=== PATIENT | male | born 1950 | race Two or more races ===

== ENCOUNTER 2016-08-17 11:04 | Inpatient (IN) | payer MEDICAID ==
[~2016-08-17] VITALS: Ht 165.1 cm; Wt 73.5 kg
[~2016-08-17 11:04] MED LIST: ASPIRIN81 MG ORAL; AUGMENTIN 875-1 EAC1 ORAL; AVODART0.5 MG ORAL; BENADRYL25 M3 PO; BENAZEPRIL HCL20 MG ORAL; BISACODYL5 MG ORAL; BRIMONIDINE TART5 ML BOTH EYES; CIPROFLOXACIN500 M2 ORAL; COLACE100 MG ORAL; CYMBALTA30 MG ORAL; GABAPENTIN400 MG ORAL; GABAPENTIN600 MG ORAL; HUMALOG100 UNIT/4 SUBQ; HYTRIN5 MG ORAL; KEPPRA500 M4 ORAL; LOTENSIN20 MG ORAL; MILK OF MA400 MG/51 ORAL; MULTI VITAMIN1 EACH ORAL; NITROFURANTOIN100 M2 ORAL; NORCO 10-325 T1 EACH ORAL; NORCO 10/3251 EA ORAL; NORCO 5-325 TA1 EACH ORAL; PENICILLIN V P500 MG ORAL; PHENAZOPYRIDIN100 MG ORAL; POLYVINYL ALCOH15 ML OP; SIMVASTATIN20 MG ORAL; TAMSULOSIN HCL0.4 MG ORAL; TYLENOL325 MG ORAL; lispro insulin
[2016-08-17] MEDS ORDERED: Morphine Sulfate 4mg/ml Inj IVP ONE (12:30)
[2016-08-17 13:39] VITALS: BP 156/89
[2016-08-17 13:41] LABS: BASOPHILS % (AUTO) 0.9 % (0.0-2.0); EOSINOPHILS % (AUTO) 6.3 % (0.0-3.0); MEAN CORPUSCULAR HEMOGLOBIN 29.2 PG (27.0-31.0); MEAN CORPUSCULAR VOLUME 88 FL (80-99); MEAN PLATELET VOLUME 6.6 FL (6.5-10.1); NEUTROPHILS % (AUTO) 65.7 % (45.0-75.0); PLATELET COUNT 109 K/UL (150-450); RED BLOOD COUNT 4.24 M/UL (4.70-6.10); RED CELL DISTRIBUTION WIDTH 13.8 % (11.6-14.8); WHITE BLOOD COUNT 4.7 K/UL (4.8-10.8)
[2016-08-17] MEDS ORDERED: DiphenhydrAMINE 50mg/ml Inj ONE (13:41)
[2016-08-17] MEDS ORDERED: DiphenhydrAMINE 50mg/ml Inj IVP ONE (14:00)
[2016-08-17 15:00] VITALS: BP 133/70
--- NOTE | 2016-08-17 15:20 | Emergency Room Report ---
History of Present Illness General Chief Complaint: Abdominal Pain Source: EMS (ABY MEAD M.D.) Present Illness HPI 65-year-old male presents ED for evaluation. Per EMS patient is complaining of abdominal pain x4 days. Patient resides in convalescent home. Patient is unable to clarify nature of the pain. Unable to provide any additional history at this time. No fevers or chills. No nausea or vomiting. No reported chest pain or shortness of breath. No other aggravating relieving factors. Denies any other associated symptom (ABY MEAD M.D.) Allergies: Coded Allergies: No Known Allergies (Unverified , 02/13/13) Patient History Past Medical History: DM, HTN, seizures Past Surgical History: none Pertinent Family History: none Social History: Denies: alcohol use, drug use, smoking Immunizations: UTD Reviewed Nursing Documentation: PMH: Agreed, PSxH: Agreed (ABY MEAD M.D.) Nursing Documentation-PMH Hx Cardiac Problems: Yes - hyperlipidemia, glaucoma Hx Hypertension: Yes Hx Diabetes: Yes Hx Seizures: Yes (ABY MEAD M.D.) Review of Systems All Other Systems: negative except mentioned in HPI (ABY MEAD M.D.) Physical Exam Vital Signs Date Time Temp Pulse Resp B/P Pulse Ox O2 Delivery O2 Flow Rate FiO2 08/17/16 11:07 98.2 71 18 148/92 97 Room Air Sp02 EP Interpretation: reviewed, normal General Appearance: no apparent distress, alert, GCS 15, non-toxic Head: normocephalic Eyes: bilateral eye PERRL, bilateral eye normal inspection ENT: hearing grossly normal Neck: normal inspection Respiratory: normal inspection Cardiovascular #1: normal inspection Gastrointestinal: normal bowel sounds, soft, non-distended, no guarding, no rebound, tenderness Rectal: deferred Genitourinary: no CVA tenderness Musculoskeletal: normal inspection Neurologic: alert, oriented x3, responsive, motor strength/tone normal, sensory intact, speech normal Psychiatric: normal inspection Skin: normal inspection Lymphatic: normal inspection (ABY MEAD M.D.) Medical Decision Making Diagnostic Impression: Primary Impression: UTI (urinary tract infection) Qualified Codes: N30.00 - Acute cystitis without hematuria Additional Impression: Abdominal pain Qualified Codes: R10.9 - Unspecified abdominal pain ER Course Received signout from Dr Bloom to followup CT - no acute findings to explain pain for 4 days I reviewed labs, patient + nitrites, UTI H&H stable. No leuks. IV Ceftriaxone given in ED Admitted to Dr Hopkins for UTI, med/surg bed (RADHA RAO M.D.) Last Vital Signs Date Time Temp Pulse Resp B/P Pulse Ox O2 Delivery O2 Flow Rate FiO2 08/17/16 14:05 98.2 08/17/16 13:39 68 22 156/89 99 Room Air (ABY MEAD M.D.) Status: improved (RADHA RAO M.D.) Disposition: ADMITTED INPATIENT Condition: Serious Referrals: FORTINO HOPKINS (PCP) ABY MEAD M.D. Aug 17, 2016 15:20 RADHA RAO M.D. Aug 17, 2016 19:17
[2016-08-17 16:01] LABS: ALANINE AMINOTRANSFERASE 12 U/L (3-41); ALBUMIN/GLOBULIN RATIO 1.5 (1.0-2.7); ANION GAP 10 (5-15); ASPARTATE AMINO TRANSFERASE 26 U/L (5-40); CALCIUM 9.5 mg/dL (8.6-10.2); CARBON DIOXIDE 26 mEQ/L (20-30); CHLORIDE 103 mEQ/L (98-107); CREATININE 0.9 mg/dL (0.7-1.2); GLOMERULAR FILTRATION RATE > 60 mL/min (>60); HEMOLYSIS 4; LIPASE 25 U/L (< 60); POTASSIUM 4.9 mEQ/L (3.4-4.9); SODIUM 139 mEQ/L (135-145); TOTAL PROTEIN 6.7 g/dL (6.6-8.7)
[2016-08-17 17:00] VITALS: BP 138/71
[2016-08-17 17:48] LABS: APPEARANCE,URINE CLEAR; KETONES,URINE NEGATIVE (NEGATIVE); LEUKOCYTE ESTERASE ,URINE 3+ (NEGATIVE); NITRITE,URINE POSITIVE (NEGATIVE); PH,URINE 7 (4.5-8.0); PROTEIN,URINE NEGATIVE (NEGATIVE); UROBILINOGEN,URINE NORMAL MG/DL (0.0-1.0)
[2016-08-17] MEDS ORDERED: Miralax 17gm pkt ORAL PRN (18:15)
[2016-08-17] MEDS ORDERED: Nitroglycerin Subl 0.4mg tab (Bottle Of 25) SL PRN (18:15)
[2016-08-17] MEDS ORDERED: Mylanta II UD 30ml ORAL PRN (18:15)
[2016-08-17] MEDS ORDERED: CRANBERRY425 MG PO (18:23)
[2016-08-17] MEDS ORDERED: NORCO 5-325 TA1 EAC1 ORAL (18:23)
[2016-08-17] MEDS ORDERED: LANTUS SOL100 UNIT/1 SUBQ (18:23)
[2016-08-17 18:29] LABS: BACTERIA,URINE MODERATE /HPF; RBC,URINE 0-2 /HPF (0 - 0); WBC,URINE 0-2 /HPF (0 - 0)
[2016-08-17] MEDS ORDERED: cefTRIAXone 1 GM in D5W 55 ML IVPB ONE (19:30)
[2016-08-17 20:00] VITALS: BP 137/79
[2016-08-17] MEDS: Heparin 5000 units/ml inj SUBQ SCH (20:02)
[2016-08-17] MEDS: D5 1/2NS 1,000 ML IV SCH (20:23)
[2016-08-18] MEDS: Morphine Sulfate 2mg/ml Inj IVP PRN ×3 (01:34→21:04)
[2016-08-18 02:38] VITALS: BP 127/61
[2016-08-18 04:00] VITALS: BP 105/75
[2016-08-18] MEDS: NovoLOG Insulin Flexpen SUBQ SCH ×5 (06:30→21:06)
[2016-08-18 06:54] LABS: BASOPHILS % (AUTO) 0.3 % (0.0-2.0); EOSINOPHILS % (AUTO) 9.9 % (0.0-3.0); MEAN CORPUSCULAR HEMOGLOBIN 30.2 PG (27.0-31.0); MEAN CORPUSCULAR HGB CONC 34.1 G/DL (32.0-36.0); MEAN CORPUSCULAR VOLUME 89 FL (80-99); MEAN PLATELET VOLUME 6.3 FL (6.5-10.1); MONOCYTES % (AUTO) 7.9 % (1.0-10.0); NEUTROPHILS % (AUTO) 63.9 % (45.0-75.0); PLATELET COUNT 228 K/UL (150-450); RED BLOOD COUNT 4.07 M/UL (4.70-6.10); RED CELL DISTRIBUTION WIDTH 13.7 % (11.6-14.8); WHITE BLOOD COUNT 6.9 K/UL (4.8-10.8)
[2016-08-18 07:05] LABS: ALANINE AMINOTRANSFERASE 12 U/L (3-41); ALBUMIN/GLOBULIN RATIO 1.2 (1.0-2.7); AMYLASE 70 U/L (10-110); ANION GAP 10 (5-15); ASPARTATE AMINO TRANSFERASE 23 U/L (5-40); CALCIUM 9.5 mg/dL (8.6-10.2); CARBON DIOXIDE 26 mEQ/L (20-30); CHLORIDE 104 mEQ/L (98-107); CREATININE 0.9 mg/dL (0.7-1.2); GLOMERULAR FILTRATION RATE > 60 mL/min (>60); HEMOLYSIS 4; LIPASE 22 U/L (< 60); POTASSIUM 4.9 mEQ/L (3.4-4.9); SODIUM 140 mEQ/L (135-145); TOTAL PROTEIN 6.4 g/dL (6.6-8.7)
[2016-08-18 08:00] VITALS: BP 118/73
[2016-08-18] MEDS: DULoxetine 30mg cap ORAL SCH (08:41)
[2016-08-18] MEDS: D5 1/2NS 1,000 ML IV SCH ×2 (08:42→17:08)
[2016-08-18] MEDS: Heparin 5000 units/ml inj SUBQ SCH ×3 (08:45→21:07)
--- NOTE | 2016-08-18 09:23 | Diagnostic Imaging Report ---
Clinical Indication: Abdominal pain Technique: Patient given oral contrast. IV administration nonionic contrast. Venous phase spiral acquisition obtained through the abdomen and pelvis. Multiplanar reconstructions were generated. Total dose length product 971 mGycm. CTDIvol(s) 17 mGy Comparison: None Findings: The appendix is normal. There are is colonic diverticulosis. No evidence of diverticulitis. Unusual ossific appearing density is seen along the left anterolateral abdominal wall. This may represent some sort of heterotopic ossification. No small bowel distention. No free or loculated intraperitoneal air or fluid. The gallbladder is surgically absent. The bile ducts are nondilated. The liver, spleen, adrenals, kidneys are unremarkable. The pancreas is atrophic. There are prominent but not frankly enlarged para-aortic and paracaval nodes. No pelvic mass or adenopathy. There is a Potter catheter within bladder, which is empty. There is lower lumbar spine fusion hardware in place. The included lung bases demonstrate compressive atelectatic changes. There is a calcified granuloma at the left lung base Impression: No definite acute abnormality Diverticulosis. No evidence of diverticulitis Unusual abdominal wall calcification, possibly heterotopic ossification from prior insult Prior cholecystectomy Atrophic pancreas Other findings as noted, including evidence of prior spinal surgery, basilar pulmonary atelectatic changes, old granulomatous disease within the left lung, Potter catheter This agrees with the preliminary interpretation provided overnight by Dr. Patterson The CT scanner at [facility] is accredited by the [employer] and the scans are performed using protocols designed to limit radiation exposure to as low as reasonably achievable to attain images of sufficient resolution adequate for diagnostic evaluation.
[2016-08-18 11:56] VITALS: BP 115/68
--- NOTE | 2016-08-18 13:10 | GI Initial Consult Note ---
History of Present Illness General Date patient seen: Aug 18, 2016 Time patient seen: 11:00 Reason for Hospitalization: Abdominal Pain Referring physician: FORTINO POLO Reason for Consultation: ABDOMINAL PAIN Present Illness HPI 65-year-old male presents ED for evaluation. Per EMS patient is complaining of abdominal pain x4 days. Patient resides in convalescent home. Patient is unable to clarify nature of the pain. Unable to provide any additional history at this time. No fevers or chills. No nausea or vomiting. No reported chest pain or shortness of breath. No other aggravating relieving factors. Denies any other associated symptoms. GI CONSULT: HPI as noted above. GI consulted for abdominal pain x 4 days of unknown etiology. APCT unremarkable. Pt seen on floor, awake A&Ox4 NAD c/o of generalized pain all quads tender to touch. Denies any N/V or diarrhea or constipation at this time. This patient was seen here at [facility] last year s/p open mohit, s/p ERCP with stent placement with bile leak and s/p ERCP with stent removal back in march 2016. Pt also presents today with mild anemia. LFTs, lipase unremarkable. Home Meds Active Scripts Nitrofurantoin Monohyd/M-Cryst* (MACROBID 100 MG*) 100 Mg Capsule, 100 MG ORAL EVERY 12 HOURS for 7 Days, #14 CAP Prov:Ifeoma Bradshaw 06/28/16 Phenazopyridine Hcl* (PYRIDIUM*) 100 Mg Tablet, 100 MG ORAL THREE TIMES A DAY for 7 Days, TAB Prov:MARYAN YOUNG M.D. 06/24/16 Ciprofloxacin Hcl* (CIPROFLOXACIN HCL*) 500 Mg Tablet, 500 MG ORAL Q12H, #14 TAB 0 Refills Prov:MARYAN YOUNG M.D. 06/24/16 Terazosin HCl (Terazosin HCl) 5 Mg Capsule, 5 MG ORAL DAILY, #30 CAP Prov:FORTINO POLO 02/19/16 Reported Medications Insulin Glargine (LANTUS) 100 Unit/1 Ml Insuln.pen, 20 UNITS SUBQ BEDTIME, #1 EA 0 Refills 08/17/16 Hydrocodone Bit/Acetaminophen 5-325* (NORCO 5-325 TABLET*) 1 Each Tablet, 1 TAB ORAL Q6HR Y for For Pain, TAB 08/17/16 Cranberry Extract (CRANBERRY) 425 Mg Capsule, 425 MG PO BID, CAP 08/17/16 Hydrocodone Bit/Acetaminophen 10-325* (NORCO 10-325*) 1 Each Tablet, 1 TAB ORAL Q6H Y for For Pain, #10 TAB 0 Refills PRN PAIN 01/30/16 Hydrocodone Bit/Acetaminophen 10-325* (NORCO 10-325*) 1 Each Tablet, 1 TAB ORAL Q4H Y for For Pain, TAB 0 Refills PRN PAIN 12/27/15 Duloxetine Hcl* (CYMBALTA*) 30 Mg Capsule.dr, 30 MG ORAL DAILY, CAP 12/27/15 Diphenhydramine HCl (Benadryl) 25 Mg Capsule, 25 MG PO, CAP 12/27/15 Polyvinyl Alcohol (POLYVINYL ALCOHOL) 15 Ml Drops, 15 ML OP, ML 12/27/15 Acetaminophen (Tylenol) 325 Mg Tab, 650 MG ORAL Q6H Y for Fever/Headache/Mild Pain, #30 TAB 0 Refills 12/27/15 Simvastatin (ZOCOR) 20 Mg Tablet, 20 MG ORAL BEDTIME, TAB 12/27/15 Multivitamin (MULTI VITAMIN DAILY) 1 Each Tablet, 1 TAB ORAL DAILY, #30 TAB 0 Refills 12/27/15 Magnesium Hydroxide* (MILK OF MAGNESIA*) 400 Mg/5 Ml Oral.susp, 30 ML ORAL DAILY , ML 12/27/15 Benazepril Hcl* (LOTENSIN*) 20 Mg Tablet, 20 MG ORAL DAILY, TAB 12/27/15 Levetiracetam (KEPPRA) 500 Mg Tablet, 500 MG ORAL EVERY 12 HOURS, #60 TAB 0 Refills 12/27/15 Insulin Lispro (HUMALOG) 100 Unit/1 Ml Cartridge, 0 SUBQ, #1 UNITS 0 Refills 12/27/15 Gabapentin* (GABAPENTIN*) 600 Mg Tablet, 600 MG ORAL THREE TIMES A DAY, TAB 12/27/15 Tamsulosin Hcl (TAMSULOSIN HCL*) 0.4 Mg Cap.er.24h, 0.4 MG ORAL BEDTIME, CAP 12/27/15 Bisacodyl* (DULCOLAX*) 5 Mg Tablet.dr, 10 MG ORAL DAILY, #10 TAB 0 Refills 12/27/15 Docusate Sodium* (COLACE*) 100 Mg Capsule, 100 MG ORAL DAILY, CAP 12/27/15 Aspirin* (ASPIRIN*) 81 Mg Tab.chew, 81 MG ORAL DAILY, TAB 12/27/15 Dutasteride (AVODART) 0.5 Mg Capsule, 0.5 MG ORAL DAILY, CAP 12/27/15 Brimonidine Tartrate* (ALPHAGAN*) 5 Ml Drops, 1 DROP BOTH EYES TID, ML 12/27/15 Gabapentin* (GABAPENTIN*) 400 Mg Capsule, 400 MG ORAL THREE TIMES A DAY, CAP 02/13/13 [lispro insulin] No Conflict Check 02/13/13 Med list reviewed/reconciled: Yes Allergies: Coded Allergies: No Known Allergies (Unverified , 02/13/13) Patient History History Provided By: Patient, Medical Record PMH Narrative Past Medical/Surgical History: (1) History of CVA (cerebrovascular accident) (2) HTN (hypertension) (3) Diabetes (4) Seizure disorder (5) BPH (benign prostatic hyperplasia) Nursing Documentation-PMH Past Medical History: No History, Except For Hx Cardiac Problems: Yes - hyperlipidemia, BPH Hx Hypertension: Yes Hx Diabetes: Yes - neuropathy, 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, Hx Cancer: No Hx Gastrointestinal Problems: Yes - dysphagia Hx Cerebrovascular Accident: Yes - CVA (hemiplegia and hemiparesis) Hx Seizures: Yes - Unspecified, syncope Hx Dizziness: Yes Hx Syncope: Yes Hx Weakness: Yes - RIGHT LOWER LEG Social History: Denies: alcohol use, drug use, other, smoking Review of Systems Skin: Reports: other - scabies All Other Systems: negative except mentioned in HPI Physical Exam Vital Signs Date Time Temp Pulse Resp B/P Pulse Ox O2 Delivery O2 Flow Rate FiO2 08/17/16 11:07 98.2 71 18 148/92 97 Room Air Sp02 EP Interpretation: reviewed Labs Laboratory Tests Test 08/17/16 13:20 08/17/16 13:30 08/17/16 15:25 08/18/16 04:45 Urine Color Pale yellow Urine Appearance Clear Urine pH 7 (4.5-8.0) Urine Specific [place] 1.005 (1.005-1.035) Urine Protein Negative (NEGATIVE) Urine Glucose (UA) Negative (NEGATIVE) Urine Ketones Negative (NEGATIVE) Urine Occult Blood 1+ (NEGATIVE) H Urine Nitrite Positive (NEGATIVE) H Urine Bilirubin Negative (NEGATIVE) Urine Urobilinogen Normal MG/DL (0.0-1.0) Urine Leukocyte Esterase 3+ (NEGATIVE) H Urine RBC 0-2 /HPF (0 - 0) H Urine WBC 0-2 /HPF (0 - 0) Urine Squamous Epithelial Cells None /LPF (NONE/OCC) Urine Bacteria Moderate /HPF (NONE) H White Blood Count 4.7 K/UL (4.8-10.8) L 6.9 K/UL (4.8-10.8) Red Blood Count 4.24 M/UL (4.70-6.10) L 4.07 M/UL (4.70-6.10) L Hemoglobin 12.4 G/DL (14.2-18.0) L 12.3 G/DL (14.2-18.0) L Hematocrit 37.5 % (42.0-52.0) L 36.1 % (42.0-52.0) L Mean Corpuscular Volume 88 FL (80-99) 89 FL (80-99) Mean Corpuscular Hemoglobin 29.2 PG (27.0-31.0) 30.2 PG (27.0-31.0) Mean Corpuscular Hemoglobin Concent 33.0 G/DL (32.0-36.0) 34.1 G/DL (32.0-36.0) Red Cell Distribution Width 13.8 % (11.6-14.8) 13.7 % (11.6-14.8) Platelet Count 109 K/UL (150-450) L 228 K/UL (150-450) # Mean Platelet Volume 6.6 FL (6.5-10.1) 6.3 FL (6.5-10.1) L Neutrophils (%) (Auto) 65.7 % (45.0-75.0) 63.9 % (45.0-75.0) Lymphocytes (%) (Auto) 22.0 % (20.0-45.0) 18.0 % (20.0-45.0) L Monocytes (%) (Auto) 5.0 % (1.0-10.0) 7.9 % (1.0-10.0) Eosinophils (%) (Auto) 6.3 % (0.0-3.0) H 9.9 % (0.0-3.0) H Basophils (%) (Auto) 0.9 % (0.0-2.0) 0.3 % (0.0-2.0) Sodium Level 139 mEQ/L (135-145) 140 mEQ/L (135-145) Potassium Level 4.9 mEQ/L (3.4-4.9) 4.9 mEQ/L (3.4-4.9) Chloride Level 103 mEQ/L (98-107) 104 mEQ/L (98-107) Carbon Dioxide Level 26 mEQ/L (20-30) 26 mEQ/L (20-30) Anion Gap 10 (5-15) 10 (5-15) Blood Urea Nitrogen 20 mg/dL (7-23) 16 mg/dL (7-23) Creatinine 0.9 mg/dL (0.7-1.2) 0.9 mg/dL (0.7-1.2) Estimat Glomerular Filtration Rate > 60 mL/min (>60) > 60 mL/min (>60) Glucose Level 176 mg/dL (74-106) H 188 mg/dL (74-106) H Calcium Level 9.5 mg/dL (8.6-10.2) 9.5 mg/dL (8.6-10.2) Total Bilirubin 0.3 mg/dL (0.0-1.2) 0.4 mg/dL (0.0-1.2) Aspartate Amino Transf (AST/SGOT) 26 U/L (5-40) 23 U/L (5-40) Alanine Aminotransferase (ALT/SGPT) 12 U/L (3-41) 12 U/L (3-41) Alkaline Phosphatase 97 U/L (40-129) 86 U/L (40-129) Total Protein 6.7 g/dL (6.6-8.7) 6.4 g/dL (6.6-8.7) L Albumin 4.1 g/dL (3.5-5.2) 3.6 g/dL (3.5-5.2) Globulin 2.6 g/dL 2.8 g/dL Albumin/Globulin Ratio 1.5 (1.0-2.7) 1.2 (1.0-2.7) Lipase 25 U/L (< 60) 22 U/L (< 60) Activated Partial Thromboplast Time 29 SEC (23-33) Amylase Level 70 U/L (10-110) General Appearance: no apparent distress, alert Head: normocephalic EENT: normal ENT inspection Neck: supple Respiratory: no respiratory distress Cardiovascular: normal rate Gastrointestinal: tenderness, other - lesions Musculoskeletal: normal inspection, back normal Neurologic: normal inspection, alert, oriented x3, responsive Psychiatric: normal inspection Skin: normal inspection, normal color Lymphatic: normal inspection, no adenopathy Current Medications Current Medications Medications (Trade) Dose Ordered Sig/Gabby Route PRN Reason Start Time Stop Time Status Last Admin Dose Admin Acetaminophen (Tylenol) 650 mg Q4H PRN ORAL fever 08/17/16 18:15 09/16/16 18:14 Al Hydroxide/Mg Hydroxide (Mylanta II) 30 ml Q6H PRN ORAL dyspepsia 08/17/16 18:15 09/16/16 18:14 Dextrose (Dextrose 50%) STAT PRN IV Hypoglycemia 08/17/16 22:30 09/16/16 22:29 Dextrose/Sodium Chloride (D5 0.45% NS) 1,000 ml @ 75 mls/hr [id number] IV 08/17/16 19:30 09/16/16 19:29 08/17/16 20:23 Diphenhydramine HCl (Benadryl) 25 mg Q6H PRN ORAL Itching/Pruritis 08/17/16 18:15 09/16/16 18:14 Duloxetine HCl (Cymbalta) 30 mg DAILY ORAL 08/18/16 09:00 09/17/16 08:59 08/18/16 08:41 Gabapentin (Neurontin) 400 mg THREE TIMES A DAY ORAL 08/17/16 21:00 09/16/16 20:59 08/18/16 11:31 Heparin Sodium (Porcine) (Heparin 5000 units/ml) 5,000 units EVERY 12 HOURS SUBQ 08/17/16 21:00 09/16/16 20:59 08/18/16 08:45 Insulin Aspart (NovoLOG) BEFORE MEALS AND HS SUBQ 08/18/16 06:30 09/17/16 06:29 Levetiracetam (Keppra) 500 mg EVERY 12 HOURS ORAL 08/17/16 21:00 09/16/16 20:59 08/18/16 08:41 Morphine Sulfate (Morphine Sulfate) 2 mg EVERY 4 HOURS PRN IVP severe Pain (Pain Scale 7-10) 08/17/16 18:15 08/24/16 18:14 08/18/16 01:34 Multivitamins (Multivitamins) 1 tab DAILY ORAL 08/18/16 09:00 09/17/16 08:59 08/18/16 08:42 Nitroglycerin (Ntg) 0.4 mg Q5M X 3 DOSES PRN SL Prn Chest Pain 08/17/16 18:15 09/16/16 18:14 Ondansetron HCl (Zofran) 4 mg Q6H PRN IVP Nausea & Vomiting 08/17/16 18:15 09/16/16 18:14 Polyethylene Glycol (Miralax) 17 gm HSPRN PRN ORAL Constipation 08/17/16 18:15 09/16/16 18:14 Temazepam (Restoril) 15 mg HSPRN PRN ORAL Insomnia 08/17/16 18:15 08/24/16 18:14 Terazosin HCl 5 mg 5 mg QHS ORAL 08/17/16 21:00 09/16/16 20:59 08/17/16 20:19 GI: Plan Problems: (1) Abdominal pain (2) [facility] resident (3) Bile leak, postoperative (4) Anemia (5) Diabetes Plan s/p ERCP with stent removal for bile leak 2015 hx hepatitis panel >> negative LFTs WNL AP CT reviewed, unremarkable consider EGD/colonoscopy Tuesday adv [facility]D fu abdominal U/S OB stool ordered ppi bowel regime fu labs Discussed with Dr. Martin. Thank you for referring this patient, we will follow. Olga Green N.P. Aug 18, 2016 13:10
--- NOTE | 2016-08-18 15:40 | Wound Care Consultation ---
Wound Assessment Wound Assessment : Wound Number: #1 Wound Present on Admission: Yes New Wound: No Status Change of Wound: No Wound Location Body Site: other - suspected scabies noted on both arms, trunk, back , both legs, abdomen area and juvencio area. Wound Type: other - suspected scabies Percent of Wound [place]/Red: 100 - red, scattered rash Wound Drainage Amount: None Wound Drainage Odor: None/Absent Tissue Surrounding Wound: Erythemic Wound General Appearance: Reddened, Open to air Wound Comment Suspected Scabies scattered throughout body, Patient complains of severe itchiness day and night. Noted patient scratching at bedside. Reminded not to touch affected areas or scratch. Patient stated he just starting itching one day in bed, but does not remember when. MD made aware with new orders for elimite application. Recommendation -Contact precautions. -Apply elimite from neck to soles of feet, leave on for 8-10 hours then wash off. apply to folds as well and in between fingers. After wash, bed is to be disinfected and new linen is to be applied. belongings are to remain in belonging bag. -Remind patient not to scratch affected area. -Keep nails short. -Provide hand hygiene to patient. -Assess and notify MD for any further changes of condition noted. ERICA LACKEY Aug 18, 2016 15:40
[2016-08-18 16:08] VITALS: BP 126/73
--- NOTE | 2016-08-18 16:56 | Diagnostic Imaging Report ---
Indication: Left lower quadrant abdominal pain Technique: Miranda-scale and duplex images of the upper abdomen were obtained. Graded compression images of the left lower quadrant Comparison: 03/25/2016 Findings: Patient body habitus limits evaluation somewhat. Gallbladder is surgically absent. . Common bile duct measures 7 mm in diameter. Previously questioned endobiliary stent is not evident currently, was apparently removed in March 2016 No intrahepatic biliary ductal dilatation. Liver demonstrates normal echogenicity, no focal abnormality. Note that the left lobe is not well demonstrated.. Portal vein and hepatic veins are patent.. Pancreas is incompletely visualized due to overlying bowel gas, visualized portions are unremarkable. Spleen is unremarkable. Left kidney measures 9.3 cm in length. Right kidney measures 10.4 cm length. Both kidneys demonstrate normal echogenicity. There is no hydronephrosis. No focal abnormality. Non-aneurysmal abdominal aorta. Graded compression images of the left lower quadrant reveal no abnormality Impression: Surgically absent gallbladder. Mild extrahepatic biliary ductal ectasia is probably related to age and postcholecystectomy state. Correlate with liver function tests Otherwise unremarkable No left lower quadrant abnormality demonstrated Note suboptimal visualization of the pancreas and left hepatic lobe
[2016-08-18] MEDS: Docusate 100mg cap ORAL SCH (18:00)
[2016-08-18 20:00] VITALS: BP 135/84
[2016-08-18] MEDS: Miralax 17gm pkt ORAL SCH (21:00)
--- NOTE | 2016-08-18 22:01 | History and Physical ---
History of Present Illness General Date patient seen: Aug 18, 2016 Reason for Hospitalization: Abdominal Pain Present Illness HPI 65 yo man with pmhx DM HTN CVA and seizure disorder presenting to [facility] ER with complaint of abdominal pain. Patient denies fever or chills, no vomiting, but says he feels nauseated and also weak. Initial CT scan has revealed presence of diverticulosis no definitive diverticulitis, and abdominal U/S result is pending. GI specialist has been requested to evaluate aswell. Allergies: Coded Allergies: No Known Allergies (Unverified , 02/13/13) Medication History Scheduled Amoxicillin/Potassium Clav 875-125* (Augmentin 875-125 Tablet*), 1 TAB ORAL TWICE A DAY, (Reported) Aspirin* (Aspirin*), 81 MG ORAL DAILY, (Reported) Benazepril Hcl* (Lotensin*), 20 MG ORAL DAILY, (Reported) Bisacodyl* (Dulcolax*), 10 MG ORAL DAILY, (Reported) Brimonidine Tartrate* (Alphagan*), 1 DROP BOTH EYES TID, (Reported) Ciprofloxacin Hcl* (Ciprofloxacin Hcl*), 500 MG ORAL Q12H Cranberry Extract (Cranberry), 425 MG PO BID, (Reported) Docusate Sodium* (Colace*), 100 MG ORAL DAILY, (Reported) Duloxetine Hcl* (Cymbalta*), 30 MG ORAL DAILY, (Reported) Dutasteride (Avodart), 0.5 MG ORAL DAILY, (Reported) Gabapentin* (Gabapentin*), 400 MG ORAL THREE TIMES A DAY, (Reported) Gabapentin* (Gabapentin*), 600 MG ORAL THREE TIMES A DAY, (Reported) Insulin Glargine (Lantus), 20 UNITS SUBQ BEDTIME, (Reported) Levetiracetam (Keppra), 500 MG ORAL EVERY 12 HOURS, (Reported) Magnesium Hydroxide* (Milk Of Magnesia*), 30 ML ORAL DAILY, (Reported) Multivitamin (Multi Vitamin Daily), 1 TAB ORAL DAILY, (Reported) Nitrofurantoin Monohyd/M-Cryst* (Macrobid 100 Mg*), 100 MG ORAL EVERY 12 HOURS Phenazopyridine Hcl* (Pyridium*), 100 MG ORAL THREE TIMES A DAY Simvastatin (Zocor), 20 MG ORAL BEDTIME, (Reported) Tamsulosin Hcl (Tamsulosin Hcl*), 0.4 MG ORAL BEDTIME, (Reported) Terazosin HCl (Terazosin HCl), 5 MG ORAL DAILY Trimethoprim/Sulfamethoxazole (Bactrim Ds Tablet), 1 TAB ORAL TWICE A DAY, ( Reported) Scheduled PRN Acetaminophen (Tylenol), 650 MG ORAL Q6H PRN for Fever/Headache/Mild Pain, ( Reported) Hydrocodone Bit/Acetaminophen 10-325* (Tyro 10-325*), 1 TAB ORAL Q4H PRN for For Pain, (Reported) Hydrocodone Bit/Acetaminophen 10-325* (Tyro 10-325*), 1 TAB ORAL Q6H PRN for For Pain, (Reported) Hydrocodone Bit/Acetaminophen 5-325* (Tyro 5-325 Tablet*), 1 TAB ORAL Q6HR PRN for For Pain, (Reported) Miscellaneous Medications Diphenhydramine HCl (Benadryl), 25 MG PO, (Reported) Insulin Lispro (Humalog), 0 SUBQ, (Reported) Polyvinyl Alcohol (Polyvinyl Alcohol), 15 ML OP, (Reported) [lispro insulin], (Reported) Patient History Healthcare decision maker Resuscitation status Full Code Advanced Directive on File Review of Systems Constitutional: Reports: malaise, weakness Gastrointestinal: Reports: abdominal pain, nausea Physical Exam General Appearance: no apparent distress, alert Lines, tubes and drains: peripheral HEENT: normocephalic, atraumatic, PERRL Neck: non-tender, normal alignment, supple Respiratory/Chest: chest wall non-tender, normal breath sounds, no respiratory distress, no accessory muscle use Breasts: no masses Cardiovascular/Chest: normal peripheral pulses, normal rate, regular rhythm, no JVD Abdomen: normal bowel sounds, non tender, soft Genitourinary/Rectal: normal genital exam, normal rectal exam Extremities: inflammation, moderate edema Skin Exam: palled, rash Neurologic: responsive, abnormal CN, aphasia Last 24 Hour Vital Signs Date Time Temp Pulse Resp B/P Pulse Ox O2 Delivery O2 Flow Rate FiO2 08/18/16 20:00 97.9 66 19 135/84 97 Room Air 08/18/16 16:08 98.2 60 18 126/73 99 Room Air 08/18/16 12:30 99.1 08/18/16 11:56 99.1 70 18 115/68 96 Room Air 08/18/16 08:00 97.5 64 18 118/73 93 Room Air 08/18/16 04:00 98.2 63 14 105/75 94 Room Air 08/18/16 02:38 98.1 70 14 127/61 95 Room Air 08/18/16 02:37 97.9 Intake and Output 08/17/16 08/18/16 19:00 07:00 Intake Total 825 ml Output Total 700 ml 1550 ml Balance -700 ml -725 ml IV Total 825 ml Output Urine Total 700 ml 1550 ml # Bowel Movements 2 Laboratory Tests Test 08/18/16 04:45 White Blood Count 6.9 K/UL (4.8-10.8) Red Blood Count 4.07 M/UL (4.70-6.10) L Hemoglobin 12.3 G/DL (14.2-18.0) L Hematocrit 36.1 % (42.0-52.0) L Mean Corpuscular Volume 89 FL (80-99) Mean Corpuscular Hemoglobin 30.2 PG (27.0-31.0) Mean Corpuscular Hemoglobin Concent 34.1 G/DL (32.0-36.0) Red Cell Distribution Width 13.7 % (11.6-14.8) Platelet Count 228 K/UL (150-450) # Mean Platelet Volume 6.3 FL (6.5-10.1) L Neutrophils (%) (Auto) 63.9 % (45.0-75.0) Lymphocytes (%) (Auto) 18.0 % (20.0-45.0) L Monocytes (%) (Auto) 7.9 % (1.0-10.0) Eosinophils (%) (Auto) 9.9 % (0.0-3.0) H Basophils (%) (Auto) 0.3 % (0.0-2.0) Activated Partial Thromboplast Time 29 SEC (23-33) Sodium Level 140 mEQ/L (135-145) Potassium Level 4.9 mEQ/L (3.4-4.9) Chloride Level 104 mEQ/L (98-107) Carbon Dioxide Level 26 mEQ/L (20-30) Anion Gap 10 (5-15) Blood Urea Nitrogen 16 mg/dL (7-23) Creatinine 0.9 mg/dL (0.7-1.2) Estimat Glomerular Filtration Rate > 60 mL/min (>60) Glucose Level 188 mg/dL (74-106) H Calcium Level 9.5 mg/dL (8.6-10.2) Total Bilirubin 0.4 mg/dL (0.0-1.2) Aspartate Amino Transf (AST/SGOT) 23 U/L (5-40) Alanine Aminotransferase (ALT/SGPT) 12 U/L (3-41) Alkaline Phosphatase 86 U/L (40-129) Total Protein 6.4 g/dL (6.6-8.7) L Albumin 3.6 g/dL (3.5-5.2) Globulin 2.8 g/dL Albumin/Globulin Ratio 1.2 (1.0-2.7) Amylase Level 70 U/L (10-110) Lipase 22 U/L (< 60) Height (Feet): 5 Height (Inches): 5.00 Weight (Pounds): 162 Medications Current Medications Medications (Trade) Dose Ordered Sig/Gabby Route PRN Reason Start Time Stop Time Status Last Admin Dose Admin Acetaminophen (Tylenol) 650 mg Q4H PRN ORAL fever 08/17/16 18:15 09/16/16 18:14 Al Hydroxide/Mg Hydroxide (Mylanta II) 30 ml Q6H PRN ORAL dyspepsia 08/17/16 18:15 09/16/16 18:14 Dextrose (Dextrose 50%) STAT PRN IV Hypoglycemia 08/17/16 22:30 09/16/16 22:29 Dextrose/Sodium Chloride (D5 0.45% NS) 1,000 ml @ 75 mls/hr [id number] IV 08/17/16 19:30 09/16/16 19:29 08/18/16 17:08 Diphenhydramine HCl (Benadryl) 25 mg Q6H PRN ORAL Itching/Pruritis 08/17/16 18:15 09/16/16 18:14 08/18/16 21:04 Docusate Sodium (Colace) 100 mg TID ORAL 08/18/16 18:00 09/17/16 17:59 Duloxetine HCl (Cymbalta) 30 mg DAILY ORAL 08/18/16 09:00 09/17/16 08:59 08/18/16 08:41 Gabapentin (Neurontin) 400 mg THREE TIMES A DAY ORAL 08/17/16 21:00 09/16/16 20:59 08/18/16 18:04 Heparin Sodium (Porcine) (Heparin 5000 units/ml) 5,000 units EVERY 12 HOURS SUBQ 08/17/16 21:00 09/16/16 20:59 08/18/16 21:07 Insulin Aspart (NovoLOG) BEFORE MEALS AND HS SUBQ 08/18/16 06:30 09/17/16 06:29 08/18/16 21:06 Levetiracetam (Keppra) 500 mg EVERY 12 HOURS ORAL 08/17/16 21:00 09/16/16 20:59 08/18/16 21:04 Morphine Sulfate (Morphine Sulfate) 2 mg EVERY 4 HOURS PRN IVP severe Pain (Pain Scale 7-10) 08/17/16 18:15 08/24/16 18:14 08/18/16 21:04 Multivitamins (Multivitamins) 1 tab DAILY ORAL 08/18/16 09:00 09/17/16 08:59 08/18/16 08:42 Nitroglycerin (Ntg) 0.4 mg Q5M X 3 DOSES PRN SL Prn Chest Pain 08/17/16 18:15 09/16/16 18:14 Ondansetron HCl (Zofran) 4 mg Q6H PRN IVP Nausea & Vomiting 08/17/16 18:15 09/16/16 18:14 Polyethylene Glycol (Miralax) 17 gm BEDTIME ORAL 08/18/16 21:00 09/17/16 20:59 Polyethylene Glycol (Miralax) 17 gm HSPRN PRN ORAL Constipation 08/17/16 18:15 09/16/16 18:14 Temazepam (Restoril) 15 mg HSPRN PRN ORAL Insomnia 08/17/16 18:15 08/24/16 18:14 Terazosin HCl 5 mg 5 mg QHS ORAL 08/17/16 21:00 09/16/16 20:59 08/18/16 21:04 Assessment/Plan Status: stable, progressing Assessment/Plan Assessment/Plan Assessment/Plan ASSESSMENT UTI left hand cellulitis DM abdominal pain anemia biliary obstruction scabies, s/p treatment hx of CVA seizure disorder PLAN OF CARE Empiric Antbx Jacobs Culture Venous Duplex LUE IVF CT A/P diverticulosis, but no diverticulitis abdominal US - GI follows EGD FORTINO POLO Aug 18, 2016 22:01
[2016-08-19] VITALS: BP 129/76
[2016-08-19 04:00] VITALS: BP 112/64
[2016-08-19] MEDS: Morphine Sulfate 2mg/ml Inj IVP PRN ×4 (04:46→22:22)
[2016-08-19] MEDS: NovoLOG Insulin Flexpen SUBQ SCH ×4 (06:32→20:44)
[2016-08-19 06:33] LABS: BASOPHILS % (AUTO) 0.4 % (0.0-2.0); EOSINOPHILS % (AUTO) 11.7 % (0.0-3.0); LYMPHOCYTES % (AUTO) 21.3 % (20.0-45.0); MEAN CORPUSCULAR HEMOGLOBIN 29.2 PG (27.0-31.0); MEAN CORPUSCULAR VOLUME 89 FL (80-99); NEUTROPHILS % (AUTO) 58.7 % (45.0-75.0); PLATELET COUNT 215 K/UL (150-450); RED BLOOD COUNT 4.12 M/UL (4.70-6.10); RED CELL DISTRIBUTION WIDTH 13.9 % (11.6-14.8); WHITE BLOOD COUNT 6.3 K/UL (4.8-10.8)
[2016-08-19 07:10] LABS: ANION GAP 14 (5-15); CALCIUM 9.2 mg/dL (8.6-10.2); CARBON DIOXIDE 25 mEQ/L (20-30); CHLORIDE 99 mEQ/L (98-107); GLOMERULAR FILTRATION RATE > 60 mL/min (>60); HEMOLYSIS 7; MAGNESIUM 1.8 mg/dL (1.7-2.5); PHOSPHORUS 4.5 mg/dL (2.5-4.8); POTASSIUM 4.2 mEQ/L (3.4-4.9); SODIUM 138 mEQ/L (135-145)
[2016-08-19 08:00] VITALS: BP 119/75
[2016-08-19] MEDS: D5 1/2NS 1,000 ML IV SCH ×2 (08:00→11:30)
[2016-08-19] MEDS: DULoxetine 30mg cap ORAL SCH (08:25)
[2016-08-19] MEDS: Docusate 100mg cap ORAL SCH ×3 (08:25→17:27)
[2016-08-19] MEDS: Heparin 5000 units/ml inj SUBQ SCH ×2 (08:31→20:41)
[2016-08-19 12:01] VITALS: BP 113/80
--- NOTE | 2016-08-19 13:33 | GI Progress Note ---
Assessment/Plan Problems: (1) Colonoscopy planned SNOMED: 877897526 (2) Bile leak, postoperative ICD Codes: K91.89 - Other postprocedural complications and disorders of digestive system; K83.8 - Other specified diseases of biliary tract SNOMED: 028484085, 979198010 (3) Diabetes ICD Codes: E11.9 - Type 2 diabetes mellitus without complications SNOMED: 07968157 (4) Anemia ICD Codes: D64.9 - Anemia, unspecified SNOMED: 506418675 (5) Abdominal pain ICD Codes: R10.9 - Unspecified abdominal pain SNOMED: 92360814 Qualifiers: Qualified Codes: R10.9 - Unspecified abdominal pain (6) Biliary obstruction ICD Codes: K83.1 - Obstruction of bile duct SNOMED: 585002023 Status: unchanged Status Narrative Discussed with Dr. Martin. Assessment/Plan s/p ERCP with stent removal for bile leak 2015 hx hepatitis panel >> negative LFTs WNL AP CT reviewed, unremarkable Abd US, unremarkable EGD/colonoscopy scheduled tomorrow - [facility], NPO @ [facility] stool uncollected ppi bowel regime fu labs Subjective Gastrointestinal/Abdominal: Reports: abdominal pain - slight improvement Objective Last 24 Hour Vital Signs Date Time Temp Pulse Resp B/P Pulse Ox O2 Delivery O2 Flow Rate FiO2 08/19/16 13:24 97.9 08/19/16 12:01 97.9 71 19 113/80 100 Room Air 08/19/16 10:08 97.7 08/19/16 08:00 97.7 63 18 119/75 97 Room Air 08/19/16 04:00 97.9 68 18 112/64 95 Room Air 08/19/16 00:00 97.9 68 18 129/76 96 Room Air 08/18/16 20:00 97.9 66 19 135/84 97 Room Air 08/18/16 16:08 98.2 60 18 126/73 99 Room Air Intake and Output 08/18/16 08/19/16 19:00 07:00 Intake Total 270 ml 825 ml Output Total 1500 ml 700 ml Balance -1230 ml 125 ml Intake Oral 120 ml IV Total 150 ml 825 ml Output Urine Total 1500 ml 700 ml # Bowel Movements 2 Laboratory Tests Test 08/19/16 05:35 White Blood Count 6.3 K/UL (4.8-10.8) Red Blood Count 4.12 M/UL (4.70-6.10) L Hemoglobin 12.0 G/DL (14.2-18.0) L Hematocrit 36.5 % (42.0-52.0) L Mean Corpuscular Volume 89 FL (80-99) Mean Corpuscular Hemoglobin 29.2 PG (27.0-31.0) Mean Corpuscular Hemoglobin Concent 33.0 G/DL (32.0-36.0) Red Cell Distribution Width 13.9 % (11.6-14.8) Platelet Count 215 K/UL (150-450) Mean Platelet Volume 6.0 FL (6.5-10.1) L Neutrophils (%) (Auto) 58.7 % (45.0-75.0) Lymphocytes (%) (Auto) 21.3 % (20.0-45.0) Monocytes (%) (Auto) 8.0 % (1.0-10.0) Eosinophils (%) (Auto) 11.7 % (0.0-3.0) H Basophils (%) (Auto) 0.4 % (0.0-2.0) Sodium Level 138 mEQ/L (135-145) Potassium Level 4.2 mEQ/L (3.4-4.9) Chloride Level 99 mEQ/L (98-107) Carbon Dioxide Level 25 mEQ/L (20-30) Anion Gap 14 (5-15) Blood Urea Nitrogen 17 mg/dL (7-23) Creatinine 1.0 mg/dL (0.7-1.2) Estimat Glomerular Filtration Rate > 60 mL/min (>60) Glucose Level 164 mg/dL (74-106) H Calcium Level 9.2 mg/dL (8.6-10.2) Phosphorus Level 4.5 mg/dL (2.5-4.8) Magnesium Level 1.8 mg/dL (1.7-2.5) Height (Feet): 5 Height (Inches): 5.00 Weight (Pounds): 162 General Appearance: no apparent distress, alert Cardiovascular: normal rate Respiratory/Chest: normal breath sounds, no respiratory distress Abdominal Exam: normal bowel sounds, soft, tender, incision site Extremities: normal range of motion Olga Green N.PTima Aug 19, 2016 13:33
[2016-08-19 16:00] VITALS: BP 141/76
[2016-08-19] MEDS ORDERED: Bisacodyl EC 5mg tab ORAL ONE (16:00)
[2016-08-19] MEDS ORDERED: Nulytely 4L ORAL ONE (16:00)
--- NOTE | 2016-08-19 17:16 | Pulmonology Progress Note ---
Assessment/Plan Assessment/Plan Assessment/Plan Assessment/Plan ASSESSMENT UTI left hand cellulitis DM abdominal pain anemia biliary obstruction scabies, s/p treatment hx of CVA seizure disorder PLAN OF CARE abx, urine cx + Staph, Strep Venous Duplex LUE IVF CT A/P no definite acute pathology; diverticulosis, but no diverticulitis abdominal US - no acute process GI follows Subjective ROS Limited/Unobtainable: No Constitutional: Reports: anorexia, fatigue Gastrointestinal/Abdominal: Reports: bloating, nausea Allergies: Coded Allergies: No Known Allergies (Unverified , 02/13/13) Objective Last 24 Hour Vital Signs Date Time Temp Pulse Resp B/P Pulse Ox O2 Delivery O2 Flow Rate FiO2 08/19/16 16:00 99.9 71 16 141/76 94 Room Air 08/19/16 13:24 97.9 08/19/16 12:01 97.9 71 19 113/80 100 Room Air 08/19/16 10:08 97.7 08/19/16 08:00 97.7 63 18 119/75 97 Room Air 08/19/16 04:00 97.9 68 18 112/64 95 Room Air 08/19/16 00:00 97.9 68 18 129/76 96 Room Air 08/18/16 20:00 97.9 66 19 135/84 97 Room Air Intake and Output 08/18/16 08/19/16 19:00 07:00 Intake Total 270 ml 900 ml Output Total 1500 ml 700 ml Balance -1230 ml 200 ml Intake Oral 120 ml IV Total 150 ml 900 ml Output Urine Total 1500 ml 700 ml # Bowel Movements 2 General Appearance: no acute distress HEENT: normocephalic, atraumatic, PERRL Respiratory/Chest: chest wall non-tender, decreased breath sounds, accessory muscle use Cardiovascular: normal peripheral pulses, normal rate, regular rhythm, no JVD Abdomen: hyperactive bowel sounds, distended, guarding, tender, rebound tenderness, mass Genitourinary: normal external genitalia Extremities: no cyanosis Skin: rash, lesions, ulcers Neurologic/Psychiatric: oriented x 3, abnormal CN, motor weakness, aphasia Microbiology Date/Time Source Procedure Growth Status 08/17/16 15:00 Nasal Nares MRSA Culture - Final Staphylococcus Aureus - Mrsa Complete 08/17/16 13:20 Urine,Clean Catch Urine Culture - Preliminary Resulted Laboratory Tests 08/19/16 05:35: White Blood Count 6.3, Red Blood Count 4.12L, Hemoglobin 12.0L, Hematocrit 36.5L , Mean Corpuscular Volume 89, Mean Corpuscular Hemoglobin 29.2, Mean Corpuscular Hemoglobin Concent 33.0, Red Cell Distribution Width 13.9, Platelet Count 215, Mean Platelet Volume 6.0L, Neutrophils (%) (Auto) 58.7, Lymphocytes ( %) (Auto) 21.3, Monocytes (%) (Auto) 8.0, Eosinophils (%) (Auto) 11.7H, Basophils (%) (Auto) 0.4, Sodium Level 138, Potassium Level 4.2, Chloride Level 99, Carbon Dioxide Level 25, Anion Gap 14, Blood Urea Nitrogen 17, Creatinine 1.0, Estimat Glomerular Filtration Rate > 60, Glucose Level 164H, Calcium Level 9.2, Phosphorus Level 4.5, Magnesium Level 1.8 Current Medications Medications (Trade) Dose Ordered Sig/Gabby Route PRN Reason Start Time Stop Time Status Last Admin Dose Admin Acetaminophen (Tylenol) 650 mg Q4H PRN ORAL fever 08/17/16 18:15 09/16/16 18:14 Al Hydroxide/Mg Hydroxide (Mylanta II) 30 ml Q6H PRN ORAL dyspepsia 08/17/16 18:15 09/16/16 18:14 Dextrose (Dextrose 50%) STAT PRN IV Hypoglycemia 08/17/16 22:30 09/16/16 22:29 Dextrose/Sodium Chloride (D5 0.45% NS) 1,000 ml @ 75 mls/hr [id number] IV 08/17/16 19:30 09/16/16 19:29 08/19/16 08:00 Diphenhydramine HCl (Benadryl) 25 mg Q6H PRN ORAL Itching/Pruritis 08/17/16 18:15 09/16/16 18:14 08/18/16 21:04 Docusate Sodium (Colace) 100 mg TID ORAL 08/18/16 18:00 09/17/16 17:59 08/19/16 12:26 Duloxetine HCl (Cymbalta) 30 mg DAILY ORAL 08/18/16 09:00 09/17/16 08:59 08/19/16 08:25 Gabapentin (Neurontin) 400 mg THREE TIMES A DAY ORAL 08/17/16 21:00 09/16/16 20:59 08/19/16 12:25 Heparin Sodium (Porcine) (Heparin 5000 units/ml) 5,000 units EVERY 12 HOURS SUBQ 08/17/16 21:00 09/16/16 20:59 08/19/16 08:31 Insulin Aspart (NovoLOG) BEFORE MEALS AND HS SUBQ 08/18/16 06:30 09/17/16 06:29 08/19/16 12:27 Levetiracetam (Keppra) 500 mg EVERY 12 HOURS ORAL 08/17/16 21:00 09/16/16 20:59 08/19/16 08:25 Morphine Sulfate (Morphine Sulfate) 2 mg EVERY 4 HOURS PRN IVP severe Pain (Pain Scale 7-10) 08/17/16 18:15 08/24/16 18:14 08/19/16 09:21 Multivitamins (Multivitamins) 1 tab DAILY ORAL 08/18/16 09:00 09/17/16 08:59 08/19/16 08:26 Nitroglycerin (Ntg) 0.4 mg Q5M X 3 DOSES PRN SL Prn Chest Pain 08/17/16 18:15 09/16/16 18:14 Ondansetron HCl (Zofran) 4 mg Q6H PRN IVP Nausea & Vomiting 08/17/16 18:15 09/16/16 18:14 Polyethylene Glycol (Miralax) 17 gm BEDTIME ORAL 08/18/16 21:00 09/17/16 20:59 Polyethylene Glycol (Miralax) 17 gm HSPRN PRN ORAL Constipation 08/17/16 18:15 09/16/16 18:14 Sodium Phosphate (Fleet's Sodium Phosl Enema) 133 ml ONCE ONCE RECTAL 08/19/16 23:30 08/19/16 23:31 Temazepam (Restoril) 15 mg HSPRN PRN ORAL Insomnia 08/17/16 18:15 08/24/16 18:14 Terazosin HCl 5 mg 5 mg QHS ORAL 08/17/16 21:00 09/16/16 20:59 08/18/16 21:04 FORTINO POLO Aug 19, 2016 17:16
[2016-08-19 20:00] VITALS: BP 142/77
[2016-08-19] MEDS: Miralax 17gm pkt ORAL SCH (20:44)
[2016-08-19] MEDS ORDERED: Fleet's Enema 133ml RECTAL ONE (23:30)
[2016-08-20] VITALS (12 sets, daily range): BP systolic 101–155; BP diastolic 55–90
[2016-08-20] MEDS: cefTRIAXone 1 GM in D5W 55 ML IVPB SCH ×2 (00:11→22:30)
[2016-08-20] MEDS: D5 1/2NS 1,000 ML IV SCH ×2 (05:42→22:30)
[2016-08-20] MEDS: NovoLOG Insulin Flexpen SUBQ SCH ×4 (06:30→21:12)
[2016-08-20 07:00] LABS: INR 1.1 (0.9-1.1); PROTHROMBIN TIME 10.8 SEC (9.30-11.50)
[2016-08-20 07:24] LABS: BASOPHILS % (AUTO) 0.6 % (0.0-2.0); EOSINOPHILS % (AUTO) 11.6 % (0.0-3.0); LYMPHOCYTES % (AUTO) 13.6 % (20.0-45.0); MEAN CORPUSCULAR HEMOGLOBIN 29.9 PG (27.0-31.0); MEAN CORPUSCULAR HGB CONC 33.6 G/DL (32.0-36.0); MEAN CORPUSCULAR VOLUME 89 FL (80-99); MEAN PLATELET VOLUME 6.2 FL (6.5-10.1); MONOCYTES % (AUTO) 7.9 % (1.0-10.0); NEUTROPHILS % (AUTO) 66.4 % (45.0-75.0); PLATELET COUNT 222 K/UL (150-450); RED BLOOD COUNT 4.14 M/UL (4.70-6.10); RED CELL DISTRIBUTION WIDTH 13.9 % (11.6-14.8); WHITE BLOOD COUNT 7.4 K/UL (4.8-10.8)
[2016-08-20 08:14] LABS: ANION GAP 14 (5-15); CARBON DIOXIDE 26 mEQ/L (20-30); CHLORIDE 101 mEQ/L (98-107); CREATININE 0.9 mg/dL (0.7-1.2); GLOMERULAR FILTRATION RATE > 60 mL/min (>60); HEMOLYSIS 7; POTASSIUM 4.3 mEQ/L (3.4-4.9); SODIUM 141 mEQ/L (135-145)
[2016-08-20] MEDS: Docusate 100mg cap ORAL SCH ×3 (09:00→17:27)
[2016-08-20] MEDS: DULoxetine 30mg cap ORAL SCH (09:00)
[2016-08-20] MEDS: Heparin 5000 units/ml inj SUBQ SCH ×2 (09:00→21:12)
[2016-08-20] MEDS: Morphine Sulfate 2mg/ml Inj IVP PRN ×3 (11:26→21:13)
--- NOTE | 2016-08-20 12:57 | Pre-Procedure Note/Attestation ---
Pre-Procedure Note/Attestation Complete Prior to Procedure Planned Procedure: not applicable Procedure Narrative: anemia, abd pain Indications for Procedure Pre-Operative Diagnosis: esophagogastroduodenoscopy colonoscopy Attestation I attest that I discussed the nature of the procedure; its benefits; risks and complications; and alternatives (and the risks and benefits of such alternatives ), prior to the procedure, with the patient (or the patient's legal outside sales representative). I attest that, if there was a reasonable possibility of needing a blood transfusion, the patient (or the patient's legal outside sales representative) was given the [facility] standardized written summary, pursuant to the Rony Yoni Blood Safety Act ([place] Health and Safety Code # 1645, as amended). I attest that I re-evaluated the patient just prior to the surgery and that there has been no change in the patient's H&P, except as documented below: TIM VIVAR Aug 20, 2016 12:57
--- NOTE | 2016-08-20 13:03 | Endoscopy Procedure Note ---
Endoscopy Procedure Note Indication for Procedure: anemia, abd pain Procedures Performed: EGD, colonoscopy Operative Findings/Diagnosis: gastritis, hemorrhoids Specimen: yes Pt Tolerated Procedure Well: Yes Estimated Blood Loss: none Anesthesiologist: aldo Anesthesia: MAC Implant(s) used?: No 50 yrs or older w/o bx or poly: Not Applicable 10yrs. F/U not recommended: Not Applicable TIM VIVAR Aug 20, 2016 13:03
--- NOTE | 2016-08-20 13:16 | Anethesia Preoperative Eval ---
Anesthesia Pre-op PMH/ROS General Date of Evaluation: Aug 20, 2016 Time of Evaluation: 12:45 Anesthesiologist: aldo ASA Score: ASA 3 Mallampati Score Class I : Soft palate, uvula, fauces, pillars visible Class II: Soft palate, uvula, fauces visible Class III: Soft palate, base of uvula visible Class IV: Only hard plate visible Mallampati Classification: Class II Surgeon: kanchan Diagnosis: anemia abdominal pain Surgical Procedure: egd/colonoscopy Anesthesia History: none Allergies: Coded Allergies: No Known Allergies (Unverified , 02/13/13) Past Medical History Cardiovascular: Reports: HTN Gastrointestinal/Genitourinary: Reports: other - choley Neurologic/Psychiatric: Reports: CVA, other - hmiplegia Endocrine: Reports: DM Hematology/Immune: Reports: anemia Anesthesia Pre-op Phys. Exam Physician Exam Last Vital Signs Date Time Temp Pulse Resp B/P Pulse Ox O2 Delivery O2 Flow Rate FiO2 08/20/16 11:40 98.4 76 18 135/75 98 Room Air Airway Exam Mallampati Score: Class II Teeth: missing Anesthesia Pre-op A/P Labs Hematology Test 08/20/16 06:20 White Blood Count 7.4 K/UL (4.8-10.8) Red Blood Count 4.14 M/UL (4.70-6.10) L Hemoglobin 12.4 G/DL (14.2-18.0) L Hematocrit 36.8 % (42.0-52.0) L Mean Corpuscular Volume 89 FL (80-99) Mean Corpuscular Hemoglobin 29.9 PG (27.0-31.0) Mean Corpuscular Hemoglobin Concent 33.6 G/DL (32.0-36.0) Red Cell Distribution Width 13.9 % (11.6-14.8) Platelet Count 222 K/UL (150-450) Mean Platelet Volume 6.2 FL (6.5-10.1) L Neutrophils (%) (Auto) 66.4 % (45.0-75.0) Lymphocytes (%) (Auto) 13.6 % (20.0-45.0) L Monocytes (%) (Auto) 7.9 % (1.0-10.0) Eosinophils (%) (Auto) 11.6 % (0.0-3.0) H Basophils (%) (Auto) 0.6 % (0.0-2.0) Coagulation Test 08/20/16 06:20 Prothrombin Time 10.8 SEC (9.30-11.50) Prothromb Time International Ratio 1.1 (0.9-1.1) Activated Partial Thromboplast Time 31 SEC (23-33) Chemistry Test 08/20/16 06:20 Sodium Level 141 mEQ/L (135-145) Potassium Level 4.3 mEQ/L (3.4-4.9) Chloride Level 101 mEQ/L (98-107) Carbon Dioxide Level 26 mEQ/L (20-30) Anion Gap 14 (5-15) Blood Urea Nitrogen 13 mg/dL (7-23) Creatinine 0.9 mg/dL (0.7-1.2) Estimat Glomerular Filtration Rate > 60 mL/min (>60) Glucose Level 148 mg/dL (74-106) H Calcium Level 9.0 mg/dL (8.6-10.2) Risk Assessment & Plan Plan: propofol Status Change Before Surgery: Jere Orellana MD Aug 20, 2016 13:16
--- NOTE | 2016-08-20 13:17 | Immediate Post-Op Evaluation ---
Immediate Post-Op Evalulation Immediate Post-Op Evalulation Date of Evaluation: Aug 20, 2016 Time of Evaluation: 13:30 IV Fluids: 500 Blood Pressure Systolic: 113 Blood Pressure Diastolic: 60 Pulse Rate: 79 Respiratory Rate: 20 O2 Sat by Pulse Oximetry: 100 Temperature (Fahrenheit): 99.5 Pain Score (1-10): 0 Nausea: No Vomiting: No Complications none Patient Status: awake, patent, none Hydration Status: adequate Jere Chavez MD Aug 20, 2016 13:17
--- NOTE | 2016-08-20 13:18 | 48 Hour Post Anesthesia Eval ---
Post Anesthesia Evaluation Date of Evaluation: Aug 20, 2016 Time of Evaluation: 13:35 Blood Pressure Systolic: 130 0: 74 Pulse Rate: 80 Respiratory Rate: 27 Temperature (Fahrenheit): 99.5 O2 Sat by Pulse Oximetry: 99 Airway: patent Nausea: No Vomiting: No Pain Intensity: 0 Hydration Status: adequate Cardiopulmonary Status: stable Mental Status/LOC: patient returned to baseline Follow-up Care/Observations: n/a Post-Anesthesia Complications: tolerated well Follow-up care needed: N/A Jere Chavez MD Aug 20, 2016 13:18
--- NOTE | 2016-08-20 17:59 | Pulmonology Progress Note ---
Assessment/Plan Assessment/Plan ASSESSMENT UTI left hand cellulitis DM abdominal pain anemia biliary obstruction scabies, s/p treatment hx of CVA seizure disorder PLAN OF CARE [place] floor abx, urine cx + Staph, Strep Venous Duplex LUE IVF CT A/P no definite acute pathology; diverticulosis, but no diverticulitis abdominal US - no acute process GI follows s/p EGD and colon with findings of gastritis, hemorrhoids recent ERCP with stent removal 2 to bile leak ( in 2016) LFT WNL hepatitis panel negative PPI bowel regimen stool OB push po fluids monitor HH, stable BS management wit SS of insulin seizure precautions, continue Keppra DVT prophylaxis s/p treatment with Elimite x2 and Ivermectin x 1 case discussed and evaluated by supervising physician Subjective Allergies: Coded Allergies: No Known Allergies (Unverified , 02/13/13) All Systems: reviewed and negative except above Subjective afebrile, no leukocytosis left hand edema, Objective Last 24 Hour Vital Signs Date Time Temp Pulse Resp B/P Pulse Ox O2 Delivery O2 Flow Rate FiO2 08/20/16 15:48 97.9 91 22 155/70 98 Room Air 08/20/16 13:52 82 16 144/83 97 Nasal Cannula 3.0 08/20/16 13:48 82 16 140/82 97 Nasal Cannula 3.0 08/20/16 13:42 80 16 147/88 99 Nasal Cannula 3.0 08/20/16 13:36 80 16 141/88 99 Nasal Cannula 3.0 08/20/16 13:31 80 14 134/84 99 Nasal Cannula 3.0 08/20/16 13:29 80 27 99 08/20/16 13:27 79 20 100 08/20/16 13:26 99.5 79 14 119/55 100 Nasal Cannula 3.0 08/20/16 11:40 98.4 76 18 135/75 98 Room Air 08/20/16 08:14 98.2 81 18 140/88 97 Room Air 08/20/16 04:00 98.2 70 18 152/90 96 Room Air 08/20/16 00:00 97.8 77 18 106/67 95 Room Air 08/19/16 20:00 98.2 73 18 142/77 95 Room Air Intake and Output 08/19/16 08/20/16 19:00 07:00 Intake Total 765 ml 1916.5 ml Output Total 350 ml 1300 ml Balance 415 ml 616.5 ml Intake Oral 240 ml 1095 ml IV Total 525 ml 821.5 ml Output Urine Total 350 ml 1300 ml # Voids 2 # Bowel Movements 8 General Appearance: no acute distress, other - awake, alert, responsive, Sudanese speaking male HEENT: normocephalic, atraumatic Respiratory/Chest: chest wall non-tender, lungs clear, no respiratory distress Cardiovascular: normal peripheral pulses, normal rate, regular rhythm Abdomen: normal bowel sounds, soft, non tender Extremities: no edema Skin: other - L hand with edema, erythema, warm to touch Neurologic/Psychiatric: abnormal gait, alert, responsive Musculoskeletal: atrophy - BLE Laboratory Tests 08/20/16 06:20: White Blood Count 7.4, Red Blood Count 4.14L, Hemoglobin 12.4L, Hematocrit 36.8L , Mean Corpuscular Volume 89, Mean Corpuscular Hemoglobin 29.9, Mean Corpuscular Hemoglobin Concent 33.6, Red Cell Distribution Width 13.9, Platelet Count 222, Mean Platelet Volume 6.2L, Neutrophils (%) (Auto) 66.4, Lymphocytes ( %) (Auto) 13.6L, Monocytes (%) (Auto) 7.9, Eosinophils (%) (Auto) 11.6H, Basophils (%) (Auto) 0.6, Prothrombin Time 10.8, Prothromb Time International Ratio 1.1, Activated Partial Thromboplast Time 31, Sodium Level 141, Potassium Level 4.3, Chloride Level 101, Carbon Dioxide Level 26, Anion Gap 14, Blood Urea Nitrogen 13, Creatinine 0.9, Estimat Glomerular Filtration Rate > 60, Glucose Level 148H, Calcium Level 9.0 Current Medications Medications (Trade) Dose Ordered Sig/Gabby Route PRN Reason Start Time Stop Time Status Last Admin Dose Admin Acetaminophen (Tylenol) 650 mg Q4H PRN ORAL fever 08/17/16 18:15 09/16/16 18:14 Al Hydroxide/Mg Hydroxide (Mylanta II) 30 ml Q6H PRN ORAL dyspepsia 08/17/16 18:15 09/16/16 18:14 Ceftriaxone Sodium/Dextrose (Rocephin/D5W) 55 ml @ 110 mls/hr Q24H IVPB 08/19/16 23:15 08/26/16 23:14 08/20/16 00:11 Dextrose (Dextrose 50%) STAT PRN IV Hypoglycemia 08/17/16 22:30 09/16/16 22:29 Dextrose/Sodium Chloride (D5 0.45% NS) 1,000 ml @ 75 mls/hr [id number] IV 08/17/16 19:30 09/16/16 19:29 08/20/16 05:42 Diphenhydramine HCl (Benadryl) 25 mg Q6H PRN ORAL Itching/Pruritis 08/17/16 18:15 09/16/16 18:14 08/20/16 16:28 Docusate Sodium (Colace) 100 mg TID ORAL 08/18/16 18:00 09/17/16 17:59 08/20/16 17:27 Duloxetine HCl (Cymbalta) 30 mg DAILY ORAL 08/18/16 09:00 09/17/16 08:59 08/19/16 08:25 Gabapentin (Neurontin) 400 mg THREE TIMES A DAY ORAL 08/17/16 21:00 09/16/16 20:59 08/20/16 17:28 Heparin Sodium (Porcine) (Heparin 5000 units/ml) 5,000 units EVERY 12 HOURS SUBQ 08/17/16 21:00 09/16/16 20:59 08/19/16 08:31 Insulin Aspart (NovoLOG) BEFORE MEALS AND HS SUBQ 08/18/16 06:30 09/17/16 06:29 08/20/16 16:33 Levetiracetam (Keppra) 500 mg EVERY 12 HOURS ORAL 08/17/16 21:00 09/16/16 20:59 08/19/16 20:41 Morphine Sulfate (Morphine Sulfate) 2 mg EVERY 4 HOURS PRN IVP severe Pain (Pain Scale 7-10) 08/17/16 18:15 08/24/16 18:14 08/20/16 16:28 Multivitamins (Multivitamins) 1 tab DAILY ORAL 08/18/16 09:00 09/17/16 08:59 08/19/16 08:26 Nitroglycerin (Ntg) 0.4 mg Q5M X 3 DOSES PRN SL Prn Chest Pain 08/17/16 18:15 09/16/16 18:14 Ondansetron HCl (Zofran) 4 mg Q6H PRN IVP Nausea & Vomiting 08/17/16 18:15 09/16/16 18:14 Polyethylene Glycol (Miralax) 17 gm HSPRN PRN ORAL Constipation 08/17/16 18:15 09/16/16 18:14 Polyethylene Glycol 17 gm 17 gm BEDTIME ORAL 08/18/16 21:00 09/17/16 20:59 Temazepam (Restoril) 15 mg HSPRN PRN ORAL Insomnia 08/17/16 18:15 08/24/16 18:14 Terazosin HCl 5 mg 5 mg QHS ORAL 08/17/16 21:00 09/16/16 20:59 08/19/16 20:41 Rudy ([facility])Cathy TOEING STOCKINGS Aug 20, 2016 17:59
[2016-08-20] MEDS ORDERED: Tubing IV Secondary IV ONE (18:16)
[2016-08-20] MEDS ORDERED: D5 1/2NS 1000ml IV ONE (18:16)
[2016-08-20] MEDS ORDERED: Artificial Tears 1.4% Op Soln BOTH EYES PRN (21:00)
[2016-08-20] MEDS: Miralax 17gm pkt ORAL SCH (21:08)
[2016-08-21] VITALS: BP 122/64
[2016-08-21 04:00] VITALS: BP 153/64
[2016-08-21 06:35] LABS: BASOPHILS % (AUTO) 0.2 % (0.0-2.0); EOSINOPHILS % (AUTO) 6.4 % (0.0-3.0); LYMPHOCYTES % (AUTO) 16.1 % (20.0-45.0); MEAN CORPUSCULAR HEMOGLOBIN 28.8 PG (27.0-31.0); MEAN CORPUSCULAR VOLUME 87 FL (80-99); MEAN PLATELET VOLUME 6.3 FL (6.5-10.1); MONOCYTES % (AUTO) 9.8 % (1.0-10.0); NEUTROPHILS % (AUTO) 67.5 % (45.0-75.0); PLATELET COUNT 182 K/UL (150-450); RED BLOOD COUNT 3.83 M/UL (4.70-6.10); RED CELL DISTRIBUTION WIDTH 13.8 % (11.6-14.8); WHITE BLOOD COUNT 4.9 K/UL (4.8-10.8)
[2016-08-21 06:51] LABS: ANION GAP 14 (5-15); CALCIUM 8.6 mg/dL (8.6-10.2); CARBON DIOXIDE 24 mEQ/L (20-30); CHLORIDE 99 mEQ/L (98-107); CREATININE 0.9 mg/dL (0.7-1.2); GLOMERULAR FILTRATION RATE > 60 mL/min (>60); HEMOLYSIS 2; POTASSIUM 3.7 mEQ/L (3.4-4.9); SODIUM 137 mEQ/L (135-145)
[2016-08-21] MEDS: NovoLOG Insulin Flexpen SUBQ SCH ×4 (06:54→20:23)
[2016-08-21] MEDS: Docusate 100mg cap ORAL SCH ×3 (07:53→18:00)
[2016-08-21] MEDS: DULoxetine 30mg cap ORAL SCH (07:53)
[2016-08-21] MEDS: Heparin 5000 units/ml inj SUBQ SCH ×2 (07:55→20:24)
[2016-08-21 08:00] VITALS: BP 119/68
--- NOTE | 2016-08-21 09:06 | Pulmonology Progress Note ---
Assessment/Plan Assessment/Plan ASSESSMENT UTI left hand cellulitis DM abdominal pain anemia biliary obstruction scabies, s/p treatment hx of CVA seizure disorder s/p ECG and colon gastritis hemorrhoids PLAN OF CARE [place] floor abx, urine cx + Staph, Strep Venous Duplex LUE X ray L hand ID consult for abx IVF CT A/P no definite acute pathology; diverticulosis, but no diverticulitis abdominal US - no acute process GI follows s/p EGD and colon with findings of gastritis, hemorrhoids recent ERCP with stent removal 2 to bile leak ( in 2016) LFT WNL hepatitis panel negative PPI bowel regimen stool OB push po fluids monitor HH, stable BS management wit SS of insulin seizure precautions, continue Keppra DVT prophylaxis s/p treatment with Elimite x2 and Ivermectin x1 case discussed and evaluated by supervising physician Subjective Allergies: Coded Allergies: No Known Allergies (Unverified , 02/13/13) Subjective afebrile, no leukocytosis left hand edema, tenderness x 3 days denies any trauma, injury Objective Last 24 Hour Vital Signs Date Time Temp Pulse Resp B/P Pulse Ox O2 Delivery O2 Flow Rate FiO2 08/21/16 08:00 97.6 16 119/68 97 Room Air 08/21/16 04:00 98.8 70 18 153/64 95 Room Air 08/21/16 00:00 96.2 80 20 122/64 97 Room Air 08/20/16 20:00 98.7 94 22 101/65 97 Room Air 08/20/16 15:48 97.9 91 22 155/70 98 Room Air 08/20/16 13:52 82 16 144/83 97 Nasal Cannula 3.0 08/20/16 13:48 82 16 140/82 97 Nasal Cannula 3.0 08/20/16 13:42 80 16 147/88 99 Nasal Cannula 3.0 08/20/16 13:36 80 16 141/88 99 Nasal Cannula 3.0 08/20/16 13:31 80 14 134/84 99 Nasal Cannula 3.0 08/20/16 13:29 80 27 99 08/20/16 13:27 79 20 100 08/20/16 13:26 99.5 79 14 119/55 100 Nasal Cannula 3.0 08/20/16 11:40 98.4 76 18 135/75 98 Room Air Intake and Output 08/20/16 08/21/16 19:00 07:00 Intake Total 675 ml 1642.5 ml Output Total 450 ml 1300 ml Balance 225 ml 342.5 ml Intake Oral 1080 ml IV Total 675 ml 562.5 ml Output Urine Total 450 ml 1300 ml # Voids 1 Objective General Appearance: no acute distress, awake, alert, responsive, Greek speaking male HEENT: normocephalic, atraumatic Respiratory/Chest: chest wall non-tender, lungs clear, no respiratory distress Cardiovascular: normal peripheral pulses, normal rate, regular rhythm Abdomen: normal bowel sounds, soft, non tender Extremities: no edema Skin: L hand with edema, erythema, warm to touch, TTP Neurologic/Psychiatric: abnormal gait, alert, responsive Musculoskeletal: atrophy - BLE Laboratory Tests 08/21/16 04:35: White Blood Count 4.9, Red Blood Count 3.83L, Hemoglobin 11.0L, Hematocrit 33.5L , Mean Corpuscular Volume 87, Mean Corpuscular Hemoglobin 28.8, Mean Corpuscular Hemoglobin Concent 33.0, Red Cell Distribution Width 13.8, Platelet Count 182, Mean Platelet Volume 6.3L, Neutrophils (%) (Auto) 67.5, Lymphocytes ( %) (Auto) 16.1L, Monocytes (%) (Auto) 9.8, Eosinophils (%) (Auto) 6.4H, Basophils (%) (Auto) 0.2, Sodium Level 137, Potassium Level 3.7, Chloride Level 99, Carbon Dioxide Level 24, Anion Gap 14, Blood Urea Nitrogen 11, Creatinine 0.9, Estimat Glomerular Filtration Rate > 60, Glucose Level 183H, Calcium Level 8.6, CA 19-9 Antigen 0.600 Current Medications Medications (Trade) Dose Ordered Sig/Gabby Route PRN Reason Start Time Stop Time Status Last Admin Dose Admin Acetaminophen (Tylenol) 650 mg Q4H PRN ORAL fever 08/17/16 18:15 09/16/16 18:14 Al Hydroxide/Mg Hydroxide (Mylanta II) 30 ml Q6H PRN ORAL dyspepsia 08/17/16 18:15 09/16/16 18:14 Artificial Tears (Akwa-Tears) 1 drop Q2H PRN BOTH EYES DRY EYES 08/20/16 21:00 09/19/16 20:59 08/20/16 22:30 Ceftriaxone Sodium/Dextrose (Rocephin/D5W) 55 ml @ 110 mls/hr Q24H IVPB 08/19/16 23:15 08/26/16 23:14 08/20/16 22:30 Dextrose (Dextrose 50%) STAT PRN IV Hypoglycemia 08/17/16 22:30 09/16/16 22:29 Dextrose/Sodium Chloride (D5 0.45% NS) 1,000 ml @ 75 mls/hr [id number] IV 08/17/16 19:30 09/16/16 19:29 08/20/16 22:30 Diphenhydramine HCl (Benadryl) 25 mg Q6H PRN ORAL Itching/Pruritis 08/17/16 18:15 09/16/16 18:14 08/21/16 05:52 Docusate Sodium (Colace) 100 mg TID ORAL 08/18/16 18:00 09/17/16 17:59 08/21/16 07:53 Duloxetine HCl (Cymbalta) 30 mg DAILY ORAL 08/18/16 09:00 09/17/16 08:59 08/21/16 07:53 Gabapentin (Neurontin) 400 mg THREE TIMES A DAY ORAL 08/17/16 21:00 09/16/16 20:59 08/21/16 07:54 Heparin Sodium (Porcine) (Heparin 5000 units/ml) 5,000 units EVERY 12 HOURS SUBQ 08/17/16 21:00 09/16/16 20:59 08/21/16 07:55 Insulin Aspart (NovoLOG) BEFORE MEALS AND HS SUBQ 08/18/16 06:30 09/17/16 06:29 08/21/16 06:54 Levetiracetam (Keppra) 500 mg EVERY 12 HOURS ORAL 08/17/16 21:00 09/16/16 20:59 08/21/16 07:54 Morphine Sulfate (Morphine Sulfate) 2 mg EVERY 4 HOURS PRN IVP severe Pain (Pain Scale 7-10) 08/17/16 18:15 08/24/16 18:14 08/20/16 21:13 Multivitamins (Multivitamins) 1 tab DAILY ORAL 08/18/16 09:00 09/17/16 08:59 08/21/16 07:54 Nitroglycerin (Ntg) 0.4 mg Q5M X 3 DOSES PRN SL Prn Chest Pain 08/17/16 18:15 09/16/16 18:14 Ondansetron HCl (Zofran) 4 mg Q6H PRN IVP Nausea & Vomiting 08/17/16 18:15 09/16/16 18:14 Polyethylene Glycol (Miralax) 17 gm HSPRN PRN ORAL Constipation 08/17/16 18:15 09/16/16 18:14 Polyethylene Glycol 17 gm 17 gm BEDTIME ORAL 08/18/16 21:00 09/17/16 20:59 08/20/16 21:08 Temazepam (Restoril) 15 mg HSPRN PRN ORAL Insomnia 08/17/16 18:15 08/24/16 18:14 Terazosin HCl 5 mg 5 mg QHS ORAL 08/17/16 21:00 09/16/16 20:59 08/20/16 21:08 [facility]Good [facility]itan HospitalCathy Pina NP Aug 21, 2016 09:06
--- NOTE | 2016-08-21 10:45 | Consultation ---
Consult Note Consult Note ID CONSULT: Aleah# [id number] Assessment/Plan ASSESSMENT: 65 y/o male with: // LUE cellulitis r/o DVT - doppler: pending // Polymicrobial ( MRSA, VSE ) UTI // Probable scabies SP permethrin x2 - peripheral eosinophilia // Afebrile without leukocytosis // Abdominal pain - resolved - SP EGD, colonoscopy 08/17: gastritis, hemorrhoids - CT A/P: No definite acute abnormality. Diverticulosis. No evidence of diverticulitis. Prior cholecystectomy. Atrophic pancreas - LFTs, amylase, lipase WNL // NH resident // MRSA colonized // NKDA // Full Code PLAN: - change rocephin d# 2 to IV vancomycin d# / based on cultures, give ivermectin x1, repeat in one week ( SP permethrin x2 ) - f/u doppler, XR - monitor CBC, temperatures - monitor BMP d/w THEO Grant Thanks! Will follow GEN GAMBOA Aug 21, 2016 10:45
[2016-08-21] MEDS: DiphenhydrAMINE 50mg/ml Inj IVP PRN ×3 (10:55→20:24)
[2016-08-21] MEDS: Morphine Sulfate 2mg/ml Inj IVP PRN ×2 (11:53→16:59)
[2016-08-21 12:00] VITALS: BP 142/65
[2016-08-21] MEDS ORDERED: Vancomycin 1gm/D5W 275ml IVPB ONE ×2 (13:00)
[2016-08-21] MEDS ORDERED: Morphine Sulfate 2mg/ml Inj IVP ONE (14:45)
[2016-08-21 16:00] VITALS: BP 154/80
[2016-08-21] MEDS: D5 1/2NS 1,000 ML IV SCH (16:58)
[2016-08-21 20:00] VITALS: BP 115/74
[2016-08-21] MEDS: Miralax 17gm pkt ORAL SCH (20:25)
[2016-08-22] VITALS: BP 147/76
[2016-08-22] MEDS: Vancomycin 750mg/D5W 275ml IVPB SCH ×4 (00:39→12:24)
[2016-08-22] MEDS: Morphine Sulfate 2mg/ml Inj IVP PRN ×3 (00:40→21:23)
[2016-08-22 04:00] VITALS: BP 119/54
[2016-08-22] MEDS: D5 1/2NS 1,000 ML IV SCH ×2 (05:20→19:40)
[2016-08-22] MEDS: DiphenhydrAMINE 50mg/ml Inj IVP PRN ×3 (06:42→19:40)
[2016-08-22] MEDS: NovoLOG Insulin Flexpen SUBQ SCH ×4 (06:45→21:22)
[2016-08-22 08:15] VITALS: BP 107/69
--- NOTE | 2016-08-22 08:52 | Diagnostic Imaging Report ---
History: Pain. Technique: Frontal, lateral, and oblique views of the left hand are provided. Comparison: No prior study is available for comparison. Findings: Overall bony mineralization is within normal limits. There is no evidence of acute fracture or dislocation. Joint space narrowing and small marginal osteophytes involving the interphalangeal joints is suspicious for mild osteoarthritis. The soft tissues appear grossly normal. Impression: No evidence of acute fracture or dislocation. 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
[2016-08-22] MEDS ORDERED: Tubing IV Secondary IV ONE ×2 (09:00→09:39)
[2016-08-22] MEDS ORDERED: D5 1/2NS 1000ml IV ONE ×2 (09:00→09:39)
[2016-08-22] MEDS: Docusate 100mg cap ORAL SCH ×3 (09:00→18:21)
[2016-08-22] MEDS: DULoxetine 30mg cap ORAL SCH (09:03)
[2016-08-22] MEDS: Heparin 5000 units/ml inj SUBQ SCH ×2 (09:10→21:24)
[2016-08-22 12:15] VITALS: BP 102/61
--- NOTE | 2016-08-22 13:17 | Pulmonology Progress Note ---
Assessment/Plan Assessment/Plan ASSESSMENT UTI possible left hand cellulitis DM abdominal pain anemia biliary obstruction scabies, s/p treatment hx of CVA seizure disorder s/p ECG and colon gastritis hemorrhoids PLAN OF CARE MS floor abx, urine cx + MRSA, Enterococci Venous Duplex LUE negative X ray L hand no soft tissue swelling, no fracture, c/w mild OA ID follows on Vanco IVF CT A/P no definite acute pathology; diverticulosis, but no diverticulitis abdominal US - no acute process GI follows s/p EGD and colon with findings of gastritis, hemorrhoids recent ERCP with stent removal 2 to bile leak ( in 2016) LFT WNL hepatitis panel negative PPI bowel regimen stool OB push po fluids monitor HH, stable BS management wit SS of insulin seizure precautions, continue Keppra DVT prophylaxis s/p treatment with Elimite x2 and Ivermectin x 1 dc plan for tomorrow, case discussed and evaluated by supervising physician Subjective Allergies: Coded Allergies: No Known Allergies (Unverified , 02/13/13) Subjective afebrile, no leukocytosis decreased left hand edema and tenderness denies any trauma, injury Objective Last 24 Hour Vital Signs Date Time Temp Pulse Resp B/P Pulse Ox O2 Delivery O2 Flow Rate FiO2 08/22/16 12:15 99.0 67 20 102/61 97 Room Air 08/22/16 10:02 98.1 08/22/16 08:15 97.8 79 21 107/69 99 Room Air 08/22/16 04:00 98.1 81 22 119/54 96 Room Air 08/22/16 00:00 97.9 69 20 147/76 95 Room Air 08/21/16 20:00 97.9 67 20 115/74 95 Room Air 08/21/16 17:29 98.1 08/21/16 16:00 98.1 69 18 154/80 96 Room Air 08/21/16 15:12 97.6 08/21/16 13:32 97.6 Intake and Output 08/21/16 08/22/16 19:00 07:00 Intake Total 675 ml 300 ml Output Total 550 ml 1000 ml Balance 125 ml -700 ml IV Total 675 ml 300 ml Output Urine Total 550 ml 1000 ml # Bowel Movements 1 Objective General Appearance: no acute distress, awake, alert, responsive, Bulgarian speaking male HEENT: normocephalic, atraumatic Respiratory/Chest: chest wall non-tender, lungs clear, no respiratory distress Cardiovascular: normal peripheral pulses, normal rate, regular rhythm Abdomen: normal bowel sounds, soft, non tender Extremities: no edema Skin: L hand with tarce edema, erythema, non tender Neurologic/Psychiatric: abnormal gait, alert, responsive Musculoskeletal: atrophy - BLE Current Medications Medications (Trade) Dose Ordered Sig/Gabby Route PRN Reason Start Time Stop Time Status Last Admin Dose Admin Acetaminophen (Tylenol) 650 mg Q4H PRN ORAL fever 08/17/16 18:15 09/16/16 18:14 08/21/16 12:22 Al Hydroxide/Mg Hydroxide (Mylanta II) 30 ml Q6H PRN ORAL dyspepsia 08/17/16 18:15 09/16/16 18:14 Artificial Tears (Akwa-Tears) 1 drop Q2H PRN BOTH EYES DRY EYES 08/20/16 21:00 09/19/16 20:59 08/20/16 22:30 Dextrose (Dextrose 50%) STAT PRN IV Hypoglycemia 08/17/16 22:30 09/16/16 22:29 Dextrose/Sodium Chloride (D5 0.45% NS) 1,000 ml @ 75 mls/hr [id number] IV 08/17/16 19:30 09/16/16 19:29 08/22/16 05:20 Diphenhydramine HCl (Benadryl) 25 mg Q6H PRN IVP Itching 08/21/16 11:00 09/20/16 10:59 08/22/16 12:33 Docusate Sodium (Colace) 100 mg TID ORAL 08/18/16 18:00 09/17/16 17:59 08/22/16 12:24 Duloxetine HCl (Cymbalta) 30 mg DAILY ORAL 08/18/16 09:00 09/17/16 08:59 08/22/16 09:03 Gabapentin (Neurontin) 400 mg THREE TIMES A DAY ORAL 08/17/16 21:00 09/16/16 20:59 08/22/16 12:24 Heparin Sodium (Porcine) (Heparin 5000 units/ml) 5,000 units EVERY 12 HOURS SUBQ 08/17/16 21:00 09/16/16 20:59 08/22/16 09:10 Insulin Aspart (NovoLOG) BEFORE MEALS AND HS SUBQ 08/18/16 06:30 09/17/16 06:29 08/22/16 12:28 Levetiracetam (Keppra) 500 mg EVERY 12 HOURS ORAL 08/17/16 21:00 09/16/16 20:59 08/22/16 09:03 Morphine Sulfate (Morphine Sulfate) 2 mg EVERY 4 HOURS PRN IVP severe Pain (Pain Scale 7-10) 08/17/16 18:15 08/24/16 18:14 08/22/16 06:43 Multivitamins (Multivitamins) 1 tab DAILY ORAL 08/18/16 09:00 09/17/16 08:59 08/22/16 09:03 Nitroglycerin (Ntg) 0.4 mg Q5M X 3 DOSES PRN SL Prn Chest Pain 08/17/16 18:15 09/16/16 18:14 Ondansetron HCl (Zofran) 4 mg Q6H PRN IVP Nausea & Vomiting 08/17/16 18:15 09/16/16 18:14 Polyethylene Glycol (Miralax) 17 gm BEDTIME ORAL 08/18/16 21:00 09/17/16 20:59 08/20/16 21:08 Polyethylene Glycol (Miralax) 17 gm HSPRN PRN ORAL Constipation 08/17/16 18:15 09/16/16 18:14 Temazepam (Restoril) 15 mg HSPRN PRN ORAL Insomnia 08/17/16 18:15 08/24/16 18:14 Terazosin HCl 5 mg 5 mg QHS ORAL 08/17/16 21:00 09/16/16 20:59 08/21/16 20:18 Vancomycin HCl 1 ea 1 ea DAILY PRN MISC Per rx protocol 08/21/16 11:00 09/20/16 10:59 Vancomycin HCl/ Dextrose (Vancomycin/D5W) 275 ml @ 183.708 mls/hr Q12H IVPB 08/22/16 01:00 08/27/16 00:59 08/22/16 12:24 Cathy Grant NP ([facility]) Aug 22, 2016 13:17
[2016-08-22 16:03] VITALS: BP 107/75
--- NOTE | 2016-08-22 18:02 | Infectious Diseases Prog Note ---
Assessment/Plan Assessment/Plan ASSESSMENT: 65 y/o male with: // LUE cellulitis r/o DVT - doppler: pending // Polymicrobial ( MRSA, VSE ) UTI // Probable scabies - SP permethrin x2, ivermectin x1 - peripheral eosinophilia // Afebrile without leukocytosis // Abdominal pain - resolved - SP EGD, colonoscopy 08/17: gastritis, hemorrhoids - CT A/P: No definite acute abnormality. Diverticulosis. No evidence of diverticulitis. Prior cholecystectomy. Atrophic pancreas - LFTs, amylase, lipase WNL // NH resident // MRSA colonized // NKDA // Full Code PLAN: - continue IV vancomycin d# 2 / 10 ( 08/21 SP rocephin d# 2, ivermectin x1 ) ( SP permethrin x2 ) - repeat permethrin, ivermectin 08/27 - f/u doppler - monitor CBC, temperatures - monitor BMP Subjective Allergies: Coded Allergies: No Known Allergies (Unverified , 02/13/13) Subjective remains afebrile. c/o itching Objective Vital Signs Last 24 Hour Vital Signs Date Time Temp Pulse Resp B/P Pulse Ox O2 Delivery O2 Flow Rate FiO2 08/22/16 16:03 97.9 72 19 107/75 96 Room Air 08/22/16 13:23 98.1 08/22/16 12:15 99.0 67 20 102/61 97 Room Air 08/22/16 08:15 97.8 79 21 107/69 99 Room Air 08/22/16 04:00 98.1 81 22 119/54 96 Room Air 08/22/16 00:00 97.9 69 20 147/76 95 Room Air 08/21/16 20:00 97.9 67 20 115/74 95 Room Air Height (Feet): 5 Height (Inches): 5.00 Weight (Pounds): 162 General Appearance: no acute distress Respiratory/Chest: no respiratory distress Cardiovascular: normal rate, regular rhythm Abdomen: normal bowel sounds, soft, non tender, non distended Skin: rash Current Medications Medications (Trade) Dose Ordered Sig/Gabby Route PRN Reason Start Time Stop Time Status Last Admin Dose Admin Acetaminophen (Tylenol) 650 mg Q4H PRN ORAL fever 08/17/16 18:15 09/16/16 18:14 08/21/16 12:22 Al Hydroxide/Mg Hydroxide (Mylanta II) 30 ml Q6H PRN ORAL dyspepsia 08/17/16 18:15 09/16/16 18:14 Artificial Tears (Akwa-Tears) 1 drop Q2H PRN BOTH EYES DRY EYES 08/20/16 21:00 09/19/16 20:59 08/20/16 22:30 Dextrose (Dextrose 50%) STAT PRN IV Hypoglycemia 08/17/16 22:30 09/16/16 22:29 Dextrose/Sodium Chloride (D5 0.45% NS) 1,000 ml @ 75 mls/hr [id number] IV 08/17/16 19:30 09/16/16 19:29 08/22/16 05:20 Diphenhydramine HCl (Benadryl) 25 mg Q6H PRN IVP Itching 08/21/16 11:00 09/20/16 10:59 08/22/16 12:33 Docusate Sodium (Colace) 100 mg TID ORAL 08/18/16 18:00 09/17/16 17:59 08/22/16 12:24 Duloxetine HCl (Cymbalta) 30 mg DAILY ORAL 08/18/16 09:00 09/17/16 08:59 08/22/16 09:03 Gabapentin (Neurontin) 400 mg THREE TIMES A DAY ORAL 08/17/16 21:00 09/16/16 20:59 08/22/16 12:24 Heparin Sodium (Porcine) (Heparin 5000 units/ml) 5,000 units EVERY 12 HOURS SUBQ 08/17/16 21:00 09/16/16 20:59 08/22/16 09:10 Insulin Aspart (NovoLOG) BEFORE MEALS AND HS SUBQ 08/18/16 06:30 09/17/16 06:29 08/22/16 16:37 Levetiracetam (Keppra) 500 mg EVERY 12 HOURS ORAL 08/17/16 21:00 09/16/16 20:59 08/22/16 09:03 Morphine Sulfate (Morphine Sulfate) 2 mg EVERY 4 HOURS PRN IVP severe Pain (Pain Scale 7-10) 08/17/16 18:15 08/24/16 18:14 08/22/16 06:43 Multivitamins (Multivitamins) 1 tab DAILY ORAL 08/18/16 09:00 09/17/16 08:59 08/22/16 09:03 Nitroglycerin (Ntg) 0.4 mg Q5M X 3 DOSES PRN SL Prn Chest Pain 08/17/16 18:15 09/16/16 18:14 Ondansetron HCl (Zofran) 4 mg Q6H PRN IVP Nausea & Vomiting 08/17/16 18:15 09/16/16 18:14 Polyethylene Glycol (Miralax) 17 gm BEDTIME ORAL 08/18/16 21:00 09/17/16 20:59 08/20/16 21:08 Polyethylene Glycol (Miralax) 17 gm HSPRN PRN ORAL Constipation 08/17/16 18:15 09/16/16 18:14 Temazepam (Restoril) 15 mg HSPRN PRN ORAL Insomnia 08/17/16 18:15 08/24/16 18:14 Terazosin HCl 5 mg 5 mg QHS ORAL 08/17/16 21:00 09/16/16 20:59 08/21/16 20:18 Vancomycin HCl 1 ea 1 ea DAILY PRN MISC Per rx protocol 08/21/16 11:00 09/20/16 10:59 Vancomycin HCl/ Dextrose (Vancomycin/D5W) 275 ml @ 183.708 mls/hr Q12H IVPB 08/22/16 01:00 08/27/16 00:59 08/22/16 12:24 GEN GAMBOA Aug 22, 2016 18:02
[2016-08-22 20:00] VITALS: BP 155/99
[2016-08-22] MEDS: Miralax 17gm pkt ORAL SCH (21:22)
[2016-08-23] VITALS: BP 148/92
[2016-08-23] MEDS ORDERED: Vancomycin 1gm inj IVPB ONE (02:02)
[2016-08-23] MEDS: Vancomycin 1gm in D5W 275ml IVPB SCH ×2 (02:14→13:41)
[2016-08-23] MEDS: DiphenhydrAMINE 50mg/ml Inj IVP PRN ×2 (02:19→13:49)
[2016-08-23] MEDS: Morphine Sulfate 2mg/ml Inj IVP PRN (02:20)
[2016-08-23 04:00] VITALS: BP 136/89
[2016-08-23] MEDS: NovoLOG Insulin Flexpen SUBQ SCH ×2 (06:21→12:19)
[2016-08-23] MEDS: D5 1/2NS 1,000 ML IV SCH (06:22)
[2016-08-23 08:00] VITALS: BP 117/73
[2016-08-23] MEDS: Docusate 100mg cap ORAL SCH ×2 (09:39→13:38)
[2016-08-23] MEDS: DULoxetine 30mg cap ORAL SCH (09:40)
[2016-08-23] MEDS: Heparin 5000 units/ml inj SUBQ SCH (09:42)
[2016-08-23 11:47] VITALS: BP 123/77
--- NOTE | 2016-08-23 13:17 | GI Progress Note ---
Assessment/Plan Problems: (1) Colonoscopy planned SNOMED: 764602105 (2) Bile leak, postoperative ICD Codes: K91.89 - Other postprocedural complications and disorders of digestive system; K83.8 - Other specified diseases of biliary tract SNOMED: 100038833, 790592210 (3) Diabetes ICD Codes: E11.9 - Type 2 diabetes mellitus without complications SNOMED: 42176264 (4) Anemia ICD Codes: D64.9 - Anemia, unspecified SNOMED: 274347582 (5) Abdominal pain ICD Codes: R10.9 - Unspecified abdominal pain SNOMED: 26105926 Qualifiers: Qualified Codes: R10.9 - Unspecified abdominal pain (6) Biliary obstruction ICD Codes: K83.1 - Obstruction of bile duct SNOMED: 454804739 Status: stable Status Narrative Discussed with Dr. Martin. Assessment/Plan s/p ERCP with stent removal for bile leak 2015 hx hepatitis panel >> negative LFTs WNL AP CT reviewed, unremarkable Abd US, unremarkable s/p EGD and colon with findings of gastritis, hemorrhoids ok for DC per GI standpoint OB stool >> negative ppi bowel regime fu labs Subjective Gastrointestinal/Abdominal: Reports: abdominal pain - improved Objective Last 24 Hour Vital Signs Date Time Temp Pulse Resp B/P Pulse Ox O2 Delivery O2 Flow Rate FiO2 08/23/16 11:47 97.7 64 18 123/77 98 Room Air 08/23/16 08:00 97.9 73 18 117/73 97 Room Air 08/23/16 04:00 97.6 73 18 136/89 99 Room Air 08/23/16 00:00 98.2 76 16 148/92 98 Room Air 08/22/16 20:00 98.4 74 19 155/99 100 Room Air 08/22/16 19:20 97.9 08/22/16 16:03 97.9 72 19 107/75 96 Room Air Intake and Output 08/22/16 08/23/16 19:00 07:00 Intake Total 1710 ml 465 ml Output Total 300 ml 1650 ml Balance 1410 ml -1185 ml Intake Oral 960 ml 240 ml IV Total 750 ml 225 ml Output Urine Total 300 ml 1650 ml Laboratory Tests Test 08/22/16 17:45 08/23/16 00:20 Stool Occult Blood Negative (NEGATIVE) Vancomycin Level Trough 8.6 ug/mL (5.0-12.0) Height (Feet): 5 Height (Inches): 5.00 Weight (Pounds): 162 General Appearance: no apparent distress, alert, overweight Cardiovascular: normal rate Respiratory/Chest: normal breath sounds, no accessory muscle use Abdominal Exam: normal bowel sounds, non tender, soft Extremities: normal range of motion Olga Green N.P. Aug 23, 2016 13:17
[2016-08-23] MEDS ORDERED: AUGMENTIN 875-1 EAC1 ORAL (14:17)
[2016-08-23] MEDS ORDERED: BACTRIM-DS1 EA ORAL (14:18)
--- NOTE | 2016-08-23 15:51 | Infectious Diseases Prog Note ---
Assessment/Plan Assessment/Plan ASSESSMENT: 65 y/o male with: // LUE cellulitis r/o DVT - doppler: pending // Polymicrobial ( MRSA, VSE ) UTI // Probable scabies - SP permethrin x2, ivermectin x1 - peripheral eosinophilia // Afebrile without leukocytosis // Abdominal pain - resolved - SP EGD, colonoscopy 08/17: gastritis, hemorrhoids - CT A/P: No definite acute abnormality. Diverticulosis. No evidence of diverticulitis. Prior cholecystectomy. Atrophic pancreas - LFTs, amylase, lipase WNL // NH resident // MRSA colonized // NKDA // Full Code PLAN: - ok to DC on IV vancomycin x7d or PO bactrim + PO augmentin x7 from ID standpoint ( ABX d# 3 / 10 ) ( 08/21 SP rocephin d# 2, ivermectin x1 ) ( SP permethrin x2 ) - repeat permethrin, ivermectin 08/27 - f/u doppler - monitor CBC, temperatures - monitor BMP d/w RN Subjective Allergies: Coded Allergies: No Known Allergies (Unverified , 02/13/13) Subjective remains afebrile. c/o itching for possible DC Objective Vital Signs Last 24 Hour Vital Signs Date Time Temp Pulse Resp B/P Pulse Ox O2 Delivery O2 Flow Rate FiO2 08/23/16 11:47 97.7 64 18 123/77 98 Room Air 08/23/16 08:00 97.9 73 18 117/73 97 Room Air 08/23/16 04:00 97.6 73 18 136/89 99 Room Air 08/23/16 00:00 98.2 76 16 148/92 98 Room Air 08/22/16 20:00 98.4 74 19 155/99 100 Room Air 08/22/16 19:20 97.9 08/22/16 16:03 97.9 72 19 107/75 96 Room Air Height (Feet): 5 Height (Inches): 5.00 Weight (Pounds): 162 General Appearance: no acute distress Respiratory/Chest: no respiratory distress Cardiovascular: normal rate, regular rhythm Abdomen: normal bowel sounds, soft, non tender, non distended Skin: rash Laboratory Tests Test 08/22/16 17:45 08/23/16 00:20 Stool Occult Blood Negative (NEGATIVE) Vancomycin Level Trough 8.6 ug/mL (5.0-12.0) Current Medications Medications (Trade) Dose Ordered Sig/Gabby Route PRN Reason Start Time Stop Time Status Last Admin Dose Admin Acetaminophen (Tylenol) 650 mg Q4H PRN ORAL fever 08/17/16 18:15 09/16/16 18:14 08/21/16 12:22 Al Hydroxide/Mg Hydroxide (Mylanta II) 30 ml Q6H PRN ORAL dyspepsia 08/17/16 18:15 09/16/16 18:14 Artificial Tears (Akwa-Tears) 1 drop Q2H PRN BOTH EYES DRY EYES 08/20/16 21:00 09/19/16 20:59 08/20/16 22:30 Dextrose (Dextrose 50%) STAT PRN IV Hypoglycemia 08/17/16 22:30 09/16/16 22:29 Dextrose/Sodium Chloride (D5 0.45% NS) 1,000 ml @ 75 mls/hr [id number] IV 08/17/16 19:30 09/16/16 19:29 08/23/16 06:22 Diphenhydramine HCl (Benadryl) 25 mg Q6H PRN IVP Itching 08/21/16 11:00 09/20/16 10:59 08/23/16 13:49 Docusate Sodium (Colace) 100 mg TID ORAL 08/18/16 18:00 09/17/16 17:59 08/23/16 13:38 Duloxetine HCl (Cymbalta) 30 mg DAILY ORAL 08/18/16 09:00 09/17/16 08:59 08/23/16 09:40 Gabapentin (Neurontin) 400 mg THREE TIMES A DAY ORAL 08/17/16 21:00 09/16/16 20:59 08/23/16 13:40 Heparin Sodium (Porcine) (Heparin 5000 units/ml) 5,000 units EVERY 12 HOURS SUBQ 08/17/16 21:00 09/16/16 20:59 08/23/16 09:42 Insulin Aspart (NovoLOG) BEFORE MEALS AND HS SUBQ 08/18/16 06:30 09/17/16 06:29 08/23/16 12:19 Levetiracetam (Keppra) 500 mg EVERY 12 HOURS ORAL 08/17/16 21:00 09/16/16 20:59 08/23/16 09:40 Morphine Sulfate (Morphine Sulfate) 2 mg EVERY 4 HOURS PRN IVP severe Pain (Pain Scale 7-10) 08/17/16 18:15 08/24/16 18:14 08/23/16 02:20 Multivitamins (Multivitamins) 1 tab DAILY ORAL 08/18/16 09:00 09/17/16 08:59 08/23/16 09:40 Nitroglycerin (Ntg) 0.4 mg Q5M X 3 DOSES PRN SL Prn Chest Pain 08/17/16 18:15 09/16/16 18:14 Ondansetron HCl (Zofran) 4 mg Q6H PRN IVP Nausea & Vomiting 08/17/16 18:15 09/16/16 18:14 Polyethylene Glycol (Miralax) 17 gm BEDTIME ORAL 08/18/16 21:00 09/17/16 20:59 08/22/16 21:22 Polyethylene Glycol (Miralax) 17 gm HSPRN PRN ORAL Constipation 08/17/16 18:15 09/16/16 18:14 Temazepam (Restoril) 15 mg HSPRN PRN ORAL Insomnia 08/17/16 18:15 08/24/16 18:14 08/23/16 02:18 Terazosin HCl 5 mg 5 mg QHS ORAL 08/17/16 21:00 09/16/16 20:59 08/22/16 21:22 Vancomycin HCl 1 ea 1 ea DAILY PRN MISC Per rx protocol 08/21/16 11:00 09/20/16 10:59 Vancomycin HCl/ Dextrose (Vancomycin/D5W) 275 ml @ 183.708 mls/hr Q12H IVPB 08/23/16 01:30 08/28/16 01:29 08/23/16 13:41 GEN GAMBOA Aug 23, 2016 15:51
[2016-08-23] MEDS ORDERED: D5W 275ml ONE (16:43)
[2016-08-23] MEDS ORDERED: D5 1/2NS 1000ml IV ONE (16:43)
--- NOTE | 2016-08-23 16:59 | Pulmonology Progress Note ---
Assessment/Plan Assessment/Plan Assessment/Plan Assessment/Plan ASSESSMENT UTI left hand cellulitis DM abdominal pain anemia biliary obstruction scabies, s/p treatment hx of CVA seizure disorder PLAN OF CARE MS floor abx, urine cx + Staph, Strep Venous Duplex LUE IVF CT A/P no definite acute pathology; diverticulosis, but no diverticulitis abdominal US - no acute process GI follows Subjective ROS Limited/Unobtainable: Yes Constitutional: Reports: anorexia, fatigue Gastrointestinal/Abdominal: Reports: bloating, nausea Skin: Reports: rash, ulcer Allergies: Coded Allergies: No Known Allergies (Unverified , 02/13/13) Objective Last 24 Hour Vital Signs Date Time Temp Pulse Resp B/P Pulse Ox O2 Delivery O2 Flow Rate FiO2 08/23/16 11:47 97.7 64 18 123/77 98 Room Air 08/23/16 08:00 97.9 73 18 117/73 97 Room Air 08/23/16 04:00 97.6 73 18 136/89 99 Room Air 08/23/16 00:00 98.2 76 16 148/92 98 Room Air 08/22/16 20:00 98.4 74 19 155/99 100 Room Air 08/22/16 19:20 97.9 Intake and Output 08/22/16 08/23/16 19:00 07:00 Intake Total 1710 ml 465 ml Output Total 300 ml 1650 ml Balance 1410 ml -1185 ml Intake Oral 960 ml 240 ml IV Total 750 ml 225 ml Output Urine Total 300 ml 1650 ml General Appearance: no acute distress HEENT: normocephalic, atraumatic, PERRL Respiratory/Chest: chest wall non-tender, decreased breath sounds, accessory muscle use Cardiovascular: normal peripheral pulses, normal rate, regular rhythm, no JVD Abdomen: hyperactive bowel sounds, distended, guarding, tender, rebound tenderness Genitourinary: normal external genitalia Skin: rash, lesions, ulcers Neurologic/Psychiatric: oriented x 3, abnormal CN, motor weakness, aphasia Laboratory Tests 08/22/16 17:45: Stool Occult Blood Negative 08/23/16 00:20: Vancomycin Level Trough 8.6 FORTINO POLO Aug 23, 2016 16:59
--- NOTE | 2016-08-24 10:21 | Discharge Summary ---
Discharge Summary Hospital Course Date of Admission Aug 17, 2016 at 15:44 Date of Discharge Aug 23, 2016 at 16:35 Admitting Diagnosis abd pain HPI Michael Aleman is a 65 year old male who was admitted on Aug 17, 2016 at 15:44 for Abdominal Pain Hospital Course dc summary dictated # [id number] Discharge Medications Continued Medications: Acetaminophen (Tylenol) 325 Mg Tab 650 MG ORAL Q6H PRN for Fever/Headache/Mild Pain, #30 TAB 0 Refills Amoxicillin/Potassium Clav 875-125* (Augmentin 875-125 Tablet*) 1 Each Tablet 1 TAB ORAL TWICE A DAY for 7 Days, TAB Aspirin* (Aspirin*) 81 Mg Tab.chew 81 MG ORAL DAILY, TAB Benazepril Hcl* (Lotensin*) 20 Mg Tablet 20 MG ORAL DAILY, TAB Bisacodyl* (Dulcolax*) 5 Mg Tablet.dr 10 MG ORAL DAILY, #10 TAB 0 Refills Brimonidine Tartrate* (Alphagan*) 5 Ml Drops 1 DROP BOTH EYES TID, ML Cranberry Extract (Cranberry) 425 Mg Capsule 425 MG PO BID, CAP Diphenhydramine HCl (Benadryl) 25 Mg Capsule 25 MG PO, CAP Docusate Sodium* (Colace*) 100 Mg Capsule 100 MG ORAL DAILY, CAP Duloxetine Hcl* (Cymbalta*) 30 Mg Capsule.dr 30 MG ORAL DAILY, CAP Dutasteride (Avodart) 0.5 Mg Capsule 0.5 MG ORAL DAILY, CAP Gabapentin* (Gabapentin*) 400 Mg Capsule 400 MG ORAL THREE TIMES A DAY, CAP Gabapentin* (Gabapentin*) 600 Mg Tablet 600 MG ORAL THREE TIMES A DAY, TAB Hydrocodone Bit/Acetaminophen 10-325* ([place] 10-325*) 1 Each Tablet 1 TAB ORAL Q4H PRN for For Pain, TAB 0 Refills PRN PAIN Insulin Glargine (Lantus) 100 Unit/1 Ml Insuln.pen 20 UNITS SUBQ BEDTIME, #1 EA 0 Refills Levetiracetam (Keppra) 500 Mg Tablet 500 MG ORAL EVERY 12 HOURS, #60 TAB 0 Refills Magnesium Hydroxide* (Milk Of Magnesia*) 400 Mg/5 Ml Oral.susp 30 ML ORAL DAILY, ML Multivitamin (Multi Vitamin Daily) 1 Each Tablet 1 TAB ORAL DAILY, #30 TAB 0 Refills Tamsulosin Hcl (Tamsulosin Hcl*) 0.4 Mg Cap.er.24h 0.4 MG ORAL BEDTIME, CAP Terazosin HCl (Terazosin HCl) 5 Mg Capsule 5 MG ORAL DAILY, #30 CAP Trimethoprim/Sulfamethoxazole (Bactrim Ds Tablet) 1 Each Tablet 1 TAB ORAL TWICE A DAY for 7 Days, TAB Discharge Condition Upon Discharge: stable Discharge Disposition Patient was discharged to SNF/Subacute Facility(03) Discharge Diagnoses: Rudy (Tariorlando)Cathy NP Aug 24, 2016 10:21
--- NOTE | 2016-08-25 14:57 | Discharge Summary 2 SIG ---
DATE OF ADMISSION: 08/17/2016 DATE OF DISCHARGE: 08/23/2016 REASON FOR ADMISSION: 65 years old male presented to the emergency department for evaluation. The patient was complaining of abdominal pain for four days. He was sent from the snf facility for evaluation. The patient unable to clarify the nature of pain and unable to provide any additional information at that time. He denied fever and chills. No nausea. No vomiting. No chest pain. No shortness of breath. Workup in the emergency department revealed urinalysis positive for urinary tract infection. Hemoglobin and hematocrit stable. CT of the abdomen pelvis revealed no acute findings to explain pain for four days, no leukocytosis, no fever. Patient started on intravenous ceftriaxone and transferred to Med/Surg floor for further management. ADMITTING DIAGNOSES: 1. Abdominal pain. 2. Urinary tract infection. HOSPITAL STAY: Gastroenterology consult was requested. Urine culture grew methicillin-resistant Staphylococcus aureus and Enterococcus faecalis. The patient on vancomycin, Infectious Disease follow. The patient also noted to have left hand cellulitis. Duplex of the left upper extremity was negative. X-ray of the left hand revealed no soft tissue swelling, no fracture, but consistent with mild osteoarthritis. Infectious Disease cleared for discharge on oral Augmentin and Bactrim for additional seven days. While in the hospital, IV fluids provided, initially NPO. As mentioned above, CT of the abdomen and pelvis revealed no definite acute pathology, diverticulosis, but no diverticulitis. Abdominal ultrasound also revealed no acute process. GI consult requested, who follow the patient closely. The patient undergone esophagogastroduodenoscopy and colonoscopy with the findings of gastritis and hemorrhoids. The patient had a recent endoscopic retrograde cholangiopancreatography with stent removal, secondary to bile duct leak in 2016. LFT were within normal limits. Bowel regimen instituted. PPI provided, fluids were pushed. Hemoglobin and hematocrit were clsoely monitored, stable. Blood sugar was managed with sliding scale of insulin. Seizure precautions maintained. Keppra continued, No seizure activity in the hospital. DVT prophylaxis provided. The patient probably had scabies, status post treatment with permethrin x2 and ivermectin x1. Abdominal pain resolved. Gastrointestinal specialist cleared for discharge. Stool for OB negative, afebrile, no leukocytosis. Pain controlled. DISCHARGE DIAGNOSES: 1. Urinary tract infection. 2. Left hand cellulitis. 3. Diabetes mellitus. 4. Abdominal pain, resolved. Biliary obstruction. was ruled out. 5. Anemia, stable. 6. Gastritis 7. Hemorrhoids 8. Seizure disorder. 9. History of cerebrovascular accident. 10. Gastritis. 11. Scabies, status post treatment. DISCHARGE MEDICATIONS: See medication reconciliation list. The patient discharged on seven days of oral Augmentin and Bactrim. DISCHARGE INSTRUCTIONS: The patient being discharged to snf facility. Follow up with medical doctor at the facility. Cale Hopkins M.D. __ Cathy AlbertoBayley Seton HospitalSilvana N.PTima DR: NICO JOB#: [id number] CC: ANN
--- NOTE | 2016-08-25 16:16 | Diagnostic Imaging Report ---
APPROVED REPORT CPT Code: 00784 Present Symptoms Upper Extremity Pain: Left LEFT UPPER EXTREMITY: Venous imaging reveals patency of the internal jugular, subclavian, axillary and brachial veins. The cephalic and basilic veins are also patent. Doppler indicates normal spontaneous flow within these venous segments.
--- NOTE | 2016-08-31 13:09 | Procedure Note ---
DATE OF PROCEDURE: 08/17/2016 SURGEON: Vignesh Martin M.D PROCEDURE: Upper endoscopy and colonoscopy. ANESTHESIA: Per Dr. Jere Chavez. INSTRUMENT: Olympus adult flexible upper endoscope and colonoscope. INDICATION: Screening colonoscopy evaluation and chronic GERD. REASON FOR PROCEDURE: The procedure, risks, benefits, and possible consequences, including hemorrhage, aspiration, perforation and infection, and alternative treatments, were explained to the patient/legal guardian by Dr. Vignesh Martin and the patient/legal guardian understood and accepted these risks. DESCRIPTION OF PROCEDURE: After informed consent was obtained and the patient was adequately sedated, Olympus upper endoscope was advanced through the mouth into the second portion of the duodenum and retroflexion was performed of the stomach. The patient had normal upper endoscopic exam except for mild gastritis. Random biopsy from antrum was obtained to rule out H. pylori infection. There was no evidence of any esophagitis, esophageal ulcerations, or esophageal mass. No gastric ulceration. At this time, the upper endoscope was retrieved and the patient was turned over for colonoscopy. First, a rectal exam was performed, which was normal. Then, the scope was advanced from rectum into the cecum documented by appendiceal orifice, ileocecal valve, and upper quadrant palpation. Quality of prep was very good. The patient had no obvious mass or polyp was seen in this colonoscopy examination. The patient had one sigmoid diverticula in the right colon. Retroflexion of the rectum showed evidence of internal hemorrhoids. The patient tolerated the procedure without any complications. SUMMARY OF FINDINGS: 1. Gastritis. 2. One sigmoid diverticula in the right colon. 3. Internal hemorrhoids. RECOMMENDATIONS: Follow up biopsy results and treat accordingly. Vignesh Martin M.D. DR: SHANTELL JOB#: [id number] CC: ANN
== END 2016-08-23 16:35 | DRG 463 ==
LOC: EDBD 11:04 → EDUNIT# 11:48 → EMR 11:48 → 4W 15:44 → EDBEDREQ 16:45 → 4W 19:47
PROC: 0DB68ZX Excision of Stomach, Via Natural or Artificial Opening Endoscopic, Diagnostic (ICD-10-PCS; principal; 2016-08-17)
PROC: 0DJD8ZZ Inspection of Lower Intestinal Tract, Via Natural or Artificial Opening Endoscopic (ICD-10-PCS; 2016-08-17)
DX: N39.0 Urinary tract infection, site not specified (principal); I69.351 Hemiplegia and hemiparesis following cerebral infarction affecting right dominant side; R56.9 Unspecified convulsions; R13.10 Dysphagia, unspecified; B86 Scabies; L03.114 Cellulitis of left upper limb; E11.9 Type 2 diabetes mellitus without complications; B95.2 Enterococcus as the cause of diseases classified elsewhere; D64.9 Anemia, unspecified; R10.9 Unspecified abdominal pain; K29.70 Gastritis, unspecified, without bleeding; K64.9 Unspecified hemorrhoids; B95.62 Methicillin resistant Staphylococcus aureus infection as the cause of diseases classified elsewhere; Z79.4 Long term (current) use of insulin; E78.5 Hyperlipidemia, unspecified; N40.0 Benign prostatic hyperplasia without lower urinary tract symptoms
CPT/HCPCS: 36415; 74177; 76700; 80048; 80053; 80202; 80299; 81003; 82150; 82270; 82962; 83690; 83735; 84100; 85025; 85610; 85730; 86301; 87081; 87086; 87181; 93970; 94003; 94150; J1815; J2405

== ENCOUNTER 2017-01-31 17:16 | Inpatient (IN) | payer MEDICAID ==
[~2017-01-31] VITALS: Ht 167.6 cm; Wt 74.8 kg
[~2017-01-31 17:16] MED LIST changes: +BACTRIM-DS1 EA ORAL; +CRANBERRY425 MG PO; +LANTUS SOL100 UNIT/1 SUBQ; +NORCO 5-325 TA1 EAC1 ORAL
[2017-01-31] MEDS ORDERED: Morphine Sulfate 2mg/ml Inj IVP ONE (17:45)
--- NOTE | 2017-01-31 17:55 | Emergency Room Report ---
History of Present Illness General Chief Complaint: Abdominal Pain Source: Patient, Medical Record, EMS Present Illness HPI Patient is a 66-year-old male who presented after increased left-sided abdominal pain. The patient reports having similar episodes in the past. Patient noted have increased pain to his left lower abdomen. The pain was constant nature. The patient denied any fever. He reported having bowel movement this morning. The patient had problems with intermittent constipation. Patient was at longterm. Allergies: Coded Allergies: No Known Allergies (Unverified , 02/13/13) Patient History Past Medical History: see triage record Reviewed Nursing Documentation: PMH: Agreed, PSxH: Agreed Nursing Documentation-PMH Past Medical History: No History, Except For Hx Cardiac Problems: Yes - hyperlipidemia, glaucoma Hx Hypertension: Yes Hx Diabetes: Yes Hx Cancer: No Hx Gastrointestinal Problems: Yes Hx Cerebrovascular Accident: Yes - CVA (hemiplegia and hemiparesis) x3 Hx Seizures: Yes Hx Dizziness: Yes Hx Syncope: Yes Hx Weakness: Yes - RIGHT LOWER LEG Review of Systems All Other Systems: negative except mentioned in HPI Physical Exam Vital Signs Date Time Temp Pulse Resp B/P Pulse Ox O2 Delivery O2 Flow Rate FiO2 01/31/17 17:29 98.1 74 16 95/63 98 Room Air Sp02 EP Interpretation: reviewed, normal General Appearance: normal inspection, well appearing, no apparent distress, alert, GCS 15 Head: atraumatic ENT: normal ENT inspection, hearing grossly normal, normal voice Neck: normal inspection, full range of motion, supple, no bony tend Respiratory: normal inspection, lungs clear, normal breath sounds, no respiratory distress, no retraction, no wheezing Cardiovascular #1: regular rate, rhythm, no edema Gastrointestinal: normal inspection, normal bowel sounds, no guarding, tenderness - left lower quadrant Genitourinary: no CVA tenderness Musculoskeletal: normal inspection, back normal, normal range of motion Neurologic: normal inspection, alert, oriented x3, responsive, automobile racer III-XII nml as tested, speech normal Psychiatric: normal inspection, judgement/insight normal, mood/affect normal Skin: normal inspection, normal color, no rash Medical Decision Making Diagnostic Impression: Primary Impression: UTI (urinary tract infection) Additional Impressions: Acute kidney injury Lymphadenopathy ER Course Patient presented for abdominal pain. Differential diagnoses included ischemic bowel, appendicitis, perforated viscus, abdominal aortic aneurysm, inferior myocardial infarction, viral gastroenteritis Because of complexity of patient's case laboratory testing and imaging studies were ordered CT of abdomen and pelvis showed multiple lymphnodes and bilateral renal stranding. Dr. Hopkins was contacted for inpatient management due to complexity of medical condition. Labs Test 01/31/17 19:19 White Blood Count 11.1 K/UL (4.8-10.8) Red Blood Count 4.06 M/UL (4.70-6.10) Hemoglobin 11.6 G/DL (14.2-18.0) Hematocrit 35.7 % (42.0-52.0) Mean Corpuscular Volume 88 FL (80-99) Mean Corpuscular Hemoglobin 28.7 PG (27.0-31.0) Mean Corpuscular Hemoglobin Concent 32.6 G/DL (32.0-36.0) Red Cell Distribution Width 13.0 % (11.6-14.8) Platelet Count 248 K/UL (150-450) Mean Platelet Volume 6.1 FL (6.5-10.1) Neutrophils (%) (Auto) 81.2 % (45.0-75.0) Lymphocytes (%) (Auto) 11.0 % (20.0-45.0) Monocytes (%) (Auto) 6.9 % (1.0-10.0) Eosinophils (%) (Auto) 0.4 % (0.0-3.0) Basophils (%) (Auto) 0.5 % (0.0-2.0) Prothrombin Time 10.2 SEC (9.30-11.50) Prothromb Time International Ratio 1.0 (0.9-1.1) Activated Partial Thromboplast Time 33 SEC (23-33) Urine Color Yellow Urine Appearance Clear Urine pH 5 (4.5-8.0) Urine Specific Sylvester 1.020 (1.005-1.035) Urine Protein 3+ (NEGATIVE) Urine Glucose (UA) Negative (NEGATIVE) Urine Ketones 1+ (NEGATIVE) Urine Occult Blood 3+ (NEGATIVE) Urine Nitrite Positive (NEGATIVE) Urine Bilirubin 1+ (NEGATIVE) Urine Ictotest Negative Urine Urobilinogen 1 MG/DL (0.0-1.0) Urine Leukocyte Esterase 3+ (NEGATIVE) Urine RBC 10-15 /HPF (0 - 0) Urine WBC 5-10 /HPF (0 - 0) Urine Squamous Epithelial Cells None /LPF (NONE/OCC) Urine Amorphous Sediment Few /LPF (NONE) Urine Bacteria Many /HPF (NONE) Sodium Level 136 mEQ/L (135-145) Potassium Level 4.7 mEQ/L (3.4-4.9) Chloride Level 97 mEQ/L (98-107) Carbon Dioxide Level 19 mEQ/L (20-30) Anion Gap 20 (5-15) Blood Urea Nitrogen 28 mg/dL (7-23) Creatinine 1.8 mg/dL (0.7-1.2) Estimat Glomerular Filtration Rate 37.7 mL/min (>60) Glucose Level 202 mg/dL (74-106) Calcium Level 9.4 mg/dL (8.6-10.2) Total Bilirubin 0.2 mg/dL (0.0-1.2) Aspartate Amino Transf (AST/SGOT) 23 U/L (5-40) Alanine Aminotransferase (ALT/SGPT) 8 U/L (3-41) Alkaline Phosphatase 101 U/L (40-129) Troponin I < 0.30 ng/mL (<=0.30) Total Protein 7.7 g/dL (6.6-8.7) Albumin 3.9 g/dL (3.5-5.2) Globulin 3.8 g/dL Albumin/Globulin Ratio 1.0 (1.0-2.7) Lipase 38 U/L (< 60) Last Vital Signs Date Time Temp Pulse Resp B/P Pulse Ox O2 Delivery O2 Flow Rate FiO2 01/31/17 17:29 98.1 74 16 95/63 98 Room Air Status: unchanged Disposition: ADMITTED INPATIENT Condition: Serious Zhou Maya Jan 31, 2017 17:55
[2017-01-31 18:30] VITALS: BP 85/55
[2017-01-31 19:59] LABS: APPEARANCE,URINE CLEAR; BASOPHILS % (AUTO) 0.5 % (0.0-2.0); EOSINOPHILS % (AUTO) 0.4 % (0.0-3.0); KETONES,URINE 1+ (NEGATIVE); LEUKOCYTE ESTERASE ,URINE 3+ (NEGATIVE); MEAN CORPUSCULAR HEMOGLOBIN 28.7 PG (27.0-31.0); MEAN CORPUSCULAR HGB CONC 32.6 G/DL (32.0-36.0); MEAN CORPUSCULAR VOLUME 88 FL (80-99); MEAN PLATELET VOLUME 6.1 FL (6.5-10.1); MONOCYTES % (AUTO) 6.9 % (1.0-10.0); NEUTROPHILS % (AUTO) 81.2 % (45.0-75.0); NITRITE,URINE POSITIVE (NEGATIVE); PH,URINE 5 (4.5-8.0); PLATELET COUNT 248 K/UL (150-450); PROTEIN,URINE 3+ (NEGATIVE); RED BLOOD COUNT 4.06 M/UL (4.70-6.10); UROBILINOGEN,URINE 1 MG/DL (0.0-1.0); WHITE BLOOD COUNT 11.1 K/UL (4.8-10.8)
[2017-01-31 20:06] LABS: PROTHROMBIN TIME 10.2 SEC (9.30-11.50)
[2017-01-31 20:19] LABS: AMORPHOUS SEDIMENT,UR FEW /LPF; BACTERIA,URINE MANY /HPF; ICTOTEST NEGATIVE
[2017-01-31 20:42] VITALS: BP 94/58
[2017-01-31 20:54] LABS: TROPONIN I < 0.30 ng/mL (<=0.30)
[2017-01-31 20:58] LABS: CALCIUM 9.4 mg/dL (8.6-10.2); CREATININE 1.8 mg/dL (0.7-1.2); GLOMERULAR FILTRATION RATE 37.7 mL/min (>60); POTASSIUM 4.7 mEQ/L (3.4-4.9); TOTAL PROTEIN 7.7 g/dL (6.6-8.7)
[2017-01-31] MEDS ORDERED: Morphine Sulfate 4mg/ml Inj IVP ONE (21:00)
[2017-01-31] MEDS ORDERED: cefTRIAXone 1 GM in NS 55 ML IVPB ONE (21:00)
[2017-01-31 22:12] VITALS: BP 88/57
[2017-01-31] MEDS ORDERED: Miralax 17gm pkt ORAL PRN (23:15)
[2017-01-31] MEDS ORDERED: Nitroglycerin Subl 0.4mg tab (Bottle Of 25) SL PRN (23:15)
[2017-01-31] MEDS ORDERED: DuoNeb 0.5-3(2.5)mg/3ml neb HHN PRN (23:15)
[2017-01-31 23:27] VITALS: BP 98/58
[2017-01-31] MEDS ORDERED: Rx Monitoring Vancomycin MISC PRN (23:45)
[2017-02-01] MEDS ORDERED: Vancomycin 1 GM in D5W 275 ML IV SCH (00:30)
[2017-02-01] MEDS ORDERED: Vancomycin 1gm/D5W 275ml IVPB SCH ×2 (01:00)
[2017-02-01] MEDS: Morphine Sulfate 2mg/ml Inj IVP PRN ×4 (01:02→21:49)
[2017-02-01] MEDS ORDERED: Vancomycin 1gm inj IVPB ONE (01:15)
[2017-02-01 04:00] VITALS: BP 91/56
[2017-02-01 07:29] LABS: BASOPHILS % (AUTO) 0.4 % (0.0-2.0); EOSINOPHILS % (AUTO) 3.1 % (0.0-3.0); MEAN CORPUSCULAR HEMOGLOBIN 29.3 PG (27.0-31.0); MEAN CORPUSCULAR HGB CONC 33.2 G/DL (32.0-36.0); MEAN CORPUSCULAR VOLUME 88 FL (80-99); MEAN PLATELET VOLUME 6.4 FL (6.5-10.1); MONOCYTES % (AUTO) 10.3 % (1.0-10.0); NEUTROPHILS % (AUTO) 66.3 % (45.0-75.0); PLATELET COUNT 232 K/UL (150-450); RED BLOOD COUNT 3.91 M/UL (4.70-6.10); RED CELL DISTRIBUTION WIDTH 12.8 % (11.6-14.8); WHITE BLOOD COUNT 5.9 K/UL (4.8-10.8)
[2017-02-01 08:04] LABS: ALANINE AMINOTRANSFERASE 7 U/L (3-41); ALBUMIN/GLOBULIN RATIO 1.2 (1.0-2.7); ANION GAP 13 (5-15); ASPARTATE AMINO TRANSFERASE 18 U/L (5-40); CALCIUM 8.8 mg/dL (8.6-10.2); CARBON DIOXIDE 22 mEQ/L (20-30); CHLORIDE 104 mEQ/L (98-107); CREATININE 1.5 mg/dL (0.7-1.2); GLOMERULAR FILTRATION RATE 46.5 mL/min (>60); HEMOLYSIS 3; MAGNESIUM 1.7 mg/dL (1.7-2.5); PHOSPHORUS 4.2 mg/dL (2.5-4.8); POTASSIUM 4.4 mEQ/L (3.4-4.9); SODIUM 139 mEQ/L (135-145); TOTAL PROTEIN 6.7 g/dL (6.6-8.7); URIC ACID 7.1 mg/dL (3.0-7.5)
[2017-02-01 08:34] VITALS: BP 107/58
[2017-02-01] MEDS: DULoxetine 30mg cap ORAL SCH (08:36)
[2017-02-01] MEDS: Aspirin Baby 81mg ORAL SCH (08:36)
[2017-02-01] MEDS: Heparin 5000 units/ml inj SUBQ SCH ×2 (08:41→21:31)
[2017-02-01] MEDS: Cefepime HCl 2 GM in D5W 110 ML IV SCH (08:52)
--- NOTE | 2017-02-01 09:08 | Diagnostic Imaging Report ---
Indication: Abdominal pain Technique: Continuous helical transaxial imaging of the abdomen and pelvis was obtained from the lung bases to the pubic symphysis. No intravenous contrast was administered. Coronal 2-D reformats were also obtained. Total Dose length Product (DLP): [address] Dose Index Volume (CTDIvol): 14 mGy Comparison: 01/30/16 Findings: Interval worsening retroperitoneal lymphadenopathy is demonstrated with multiple nodes seen adjacent to the aorta and IVC. There are some retrocrural nodes as well. A much of the imaging is obscured in the retroperitoneum because of streak artifact from associated lumbar hardware which includes fusion lesvia and multilevel pedicle screws from L1-L5. Atherosclerotic vascular disease with calcification of aorta and multiple major branches of the aorta appear quite extensive. In particular the origin of the SMA is heavily calcified. Cholecystectomy noted. The lung bases are essentially clear. There are a few fluid-filled and mildly distended loops of small bowel with questionable wall thickening noted particularly in the lower abdomen. Please correlate clinically. Enteritis may be present. There is no free fluid or free air identified. Portions of the left anterior abdominal wall appear heavily calcified. Distended dystrophic calcium from prior trauma or surgery. Potter catheter appears to be in good position. The appendix is normal. There is no hydronephrosis or evidence of renal stones. Impression: Development of lymphadenopathy within the retroperitoneum. The possibility of malignant neoplasm or lymphoma should be considered. Some wall thickening noted within small bowel loops demonstrated in the mid to lower abdomen. Query possibility of enteritis. Extensive vascular disease Multilevel lumbar fusion with instrumentation resulting in streak artifact limiting quality of the exam. Extensive calcification of portions of the left anterior and left lateral abdominal wall. The cavitation may be dystrophic on the basis of previous surgery or may be posttraumatic. Status post cholecystectomy Potter catheter in good position. [facility] has communicated the preliminary results to the Emergency Department. Their findings are largely concordant with this report. The CT scanner at [facility] is accredited by the [employer] and the scans are performed using dose optimization techniques as appropriate to a performed exam including Automatic Exposure control.
[2017-02-01 12:59] VITALS: BP 116/73
--- NOTE | 2017-02-01 13:34 | Consultation ---
Consult Note Consult Note ID Dic # [id number] BARBARA ARAUJO M.D. Feb 01, 2017 13:34
--- NOTE | 2017-02-01 14:33 | Diagnostic Imaging Report ---
Indication:Elevated Bun and Creatinine. Technique: Grayscale and duplex Doppler imaging of the kidneys performed. Comparison: None Findings: The size, contour, and echogenicity of both kidneys are within normal limits. There is no hydronephrosis. The IVC and urinary bladder are unremarkable. Right kidney is 11 CM. Left kidney is 9 CM in length. Potter catheter noted. Impression: Negative exam. Potter catheter noted
[2017-02-01] MEDS: metroNIDAZOLE 500mg 100 ML IVPB SCH ×2 (14:36→21:20)
[2017-02-01 16:22] VITALS: BP 115/59
--- NOTE | 2017-02-01 16:39 | History and Physical ---
History of Present Illness General Date patient seen: Feb 01, 2017 Reason for Hospitalization: Abdominal Pain Present Illness HPI 66-year-old male with PMHx of CVA, DM, HTN, [facility] resident presented to ER with CC of increased left-sided abdominal pain. The pain was constant nature. The patient denied any fever. He reported having bowel movement this morning. The patient had problems with intermittent constipation. Patient was at [facility]. A CT of abdomen showed retroperitoneal lymphadenopathy. Pt is admitted for further evaluation, including ruling out malignancy. Allergies: Coded Allergies: No Known Allergies (Unverified , 02/13/13) Medication History Scheduled Amoxicillin/Potassium Clav 875-125* (Augmentin 875-125 Tablet*), 1 TAB ORAL TWICE A DAY, (Reported) Aspirin* (Aspirin*), 81 MG ORAL DAILY, (Reported) Benazepril Hcl* (Lotensin*), 20 MG ORAL DAILY, (Reported) Bisacodyl* (Dulcolax*), 10 MG ORAL DAILY, (Reported) Brimonidine Tartrate* (Alphagan*), 1 DROP BOTH EYES TID, (Reported) Ciprofloxacin Hcl* (Ciprofloxacin Hcl*), 500 MG ORAL Q12H Cranberry Extract (Cranberry), 425 MG PO BID, (Reported) Docusate Sodium* (Colace*), 100 MG ORAL DAILY, (Reported) Duloxetine Hcl* (Cymbalta*), 30 MG ORAL DAILY, (Reported) Dutasteride (Avodart), 0.5 MG ORAL DAILY, (Reported) Gabapentin* (Gabapentin*), 400 MG ORAL THREE TIMES A DAY, (Reported) Gabapentin* (Gabapentin*), 600 MG ORAL DAILY, (Reported) Insulin Glargine (Lantus), 20 UNITS SUBQ BEDTIME, (Reported) Levetiracetam (Keppra), 500 MG ORAL EVERY 12 HOURS, (Reported) Magnesium Hydroxide* (Milk Of Magnesia*), 30 ML ORAL DAILY, (Reported) Multivitamin (Multi Vitamin Daily), 1 TAB ORAL DAILY, (Reported) Nitrofurantoin Monohyd/M-Cryst* (Macrobid 100 Mg*), 100 MG ORAL EVERY 12 HOURS Phenazopyridine Hcl* (Pyridium*), 100 MG ORAL THREE TIMES A DAY Simvastatin (Zocor), 20 MG ORAL BEDTIME, (Reported) Tamsulosin Hcl (Tamsulosin Hcl*), 0.4 MG ORAL BEDTIME, (Reported) Terazosin HCl (Terazosin HCl), 5 MG ORAL DAILY Trimethoprim/Sulfamethoxazole (Bactrim Ds Tablet), 1 TAB ORAL TWICE A DAY, ( Reported) Scheduled PRN Acetaminophen (Tylenol), 650 MG ORAL Q6H PRN for Fever/Headache/Mild Pain, ( Reported) Diphenhydramine HCl (Benadryl), 25 MG PO Q6HR PRN for Itching, (Reported) Hydrocodone Bit/Acetaminophen 10-325* ([place] 10-325*), 1 TAB ORAL Q4H PRN for For Pain, (Reported) Hydrocodone Bit/Acetaminophen 10-325* ([place] 10-325*), 1 TAB ORAL Q6H PRN for For Pain, (Reported) Hydrocodone Bit/Acetaminophen 5-325* ([place]if[place] 5-325 Tablet*), 1 TAB ORAL Q6HR PRN for For Pain, (Reported) Miscellaneous Medications Insulin Lispro (Humalog), 0 SUBQ, (Reported) Polyvinyl Alcohol (Polyvinyl Alcohol), 15 ML OP, (Reported) [lispro insulin], (Reported) Patient History Healthcare decision maker Resuscitation status Full Code Advanced Directive on File Past Medical/Surgical History Past Medical/Surgical History: (1) Seizure disorder (2) HTN (hypertension) (3) History of CVA (cerebrovascular accident) Review of Systems All Other Systems: negative except mentioned in HPI Physical Exam General Appearance: WD/WN Lines, tubes and drains: peripheral HEENT: normocephalic, atraumatic Neck: non-tender, normal alignment Respiratory/Chest: chest wall non-tender, lungs clear Breasts: no masses Cardiovascular/Chest: normal peripheral pulses Abdomen: normal bowel sounds Genitourinary/Rectal: normal genital exam Extremities: normal range of motion Skin Exam: normal pigmentation Neurologic: cell cleaner II-XII grossly normal Last 24 Hour Vital Signs Date Time Temp Pulse Resp B/P Pulse Ox O2 Delivery O2 Flow Rate FiO2 02/01/17 16:22 97.9 63 20 115/59 97 Room Air 02/01/17 12:59 98.1 67 20 116/73 95 Room Air 02/01/17 08:34 98.1 68 20 107/58 98 Room Air 02/01/17 07:40 69 16 Room Air 21 7/18/17 04:00 97.4 67 18 91/56 97 Room Air 02/01/17 01:32 98.1 01/31/17 23:28 72 11 98/58 100 Room Air 01/31/17 23:27 98.1 72 11 98/58 100 Room Air 01/31/17 22:48 98.1 01/31/17 22:12 98.1 72 9 88/57 100 Room Air 01/31/17 20:42 98.1 78 12 94/58 99 Room Air 01/31/17 18:30 98.1 76 18 85/55 100 Room Air 01/31/17 17:29 98.1 74 16 95/63 98 Room Air Intake and Output 01/31/17 02/01/17 18:59 06:59 Intake Total 0 ml 815.0 ml Output Total 200 ml Balance 0 ml 615.0 ml Intake Oral 0 ml 240 ml IV Total 575.0 ml Output Urine Total 200 ml # Bowel Movements 1 Laboratory Tests Test 01/31/17 19:19 02/01/17 04:50 White Blood Count 11.1 K/UL (4.8-10.8) H 5.9 K/UL (4.8-10.8) Red Blood Count 4.06 M/UL (4.70-6.10) L 3.91 M/UL (4.70-6.10) L Hemoglobin 11.6 G/DL (14.2-18.0) L 11.5 G/DL (14.2-18.0) L Hematocrit 35.7 % (42.0-52.0) L 34.6 % (42.0-52.0) L Mean Corpuscular Volume 88 FL (80-99) 88 FL (80-99) Mean Corpuscular Hemoglobin 28.7 PG (27.0-31.0) 29.3 PG (27.0-31.0) Mean Corpuscular Hemoglobin Concent 32.6 G/DL (32.0-36.0) 33.2 G/DL (32.0-36.0) Red Cell Distribution Width 13.0 % (11.6-14.8) 12.8 % (11.6-14.8) Platelet Count 248 K/UL (150-450) 232 K/UL (150-450) Mean Platelet Volume 6.1 FL (6.5-10.1) L 6.4 FL (6.5-10.1) L Neutrophils (%) (Auto) 81.2 % (45.0-75.0) H 66.3 % (45.0-75.0) Lymphocytes (%) (Auto) 11.0 % (20.0-45.0) L 20.0 % (20.0-45.0) Monocytes (%) (Auto) 6.9 % (1.0-10.0) 10.3 % (1.0-10.0) H Eosinophils (%) (Auto) 0.4 % (0.0-3.0) 3.1 % (0.0-3.0) H Basophils (%) (Auto) 0.5 % (0.0-2.0) 0.4 % (0.0-2.0) Prothrombin Time 10.2 SEC (9.30-11.50) Prothromb Time International Ratio 1.0 (0.9-1.1) Activated Partial Thromboplast Time 33 SEC (23-33) Urine Color Yellow Urine Appearance Clear Urine pH 5 (4.5-8.0) Urine Specific [place] 1.020 (1.005-1.035) Urine Protein 3+ (NEGATIVE) H Urine Glucose (UA) Negative (NEGATIVE) Urine Ketones 1+ (NEGATIVE) H Urine Occult Blood 3+ (NEGATIVE) H Urine Nitrite Positive (NEGATIVE) H Urine Bilirubin 1+ (NEGATIVE) H Urine Ictotest Negative Urine Urobilinogen 1 MG/DL (0.0-1.0) H Urine Leukocyte Esterase 3+ (NEGATIVE) H Urine RBC 10-15 /HPF (0 - 0) H Urine WBC 5-10 /HPF (0 - 0) H Urine Squamous Epithelial Cells None /LPF (NONE/OCC) Urine Amorphous Sediment Few /LPF (NONE) H Urine Bacteria Many /HPF (NONE) H Sodium Level 136 mEQ/L (135-145) 139 mEQ/L (135-145) Potassium Level 4.7 mEQ/L (3.4-4.9) 4.4 mEQ/L (3.4-4.9) Chloride Level 97 mEQ/L (98-107) L 104 mEQ/L (98-107) Carbon Dioxide Level 19 mEQ/L (20-30) L 22 mEQ/L (20-30) Anion Gap 20 (5-15) H 13 (5-15) Blood Urea Nitrogen 28 mg/dL (7-23) H 30 mg/dL (7-23) H Creatinine 1.8 mg/dL (0.7-1.2) H 1.5 mg/dL (0.7-1.2) H Estimat Glomerular Filtration Rate 37.7 mL/min (>60) 46.5 mL/min (>60) Glucose Level 202 mg/dL (74-106) H 124 mg/dL (74-106) H Calcium Level 9.4 mg/dL (8.6-10.2) 8.8 mg/dL (8.6-10.2) Total Bilirubin 0.2 mg/dL (0.0-1.2) 0.3 mg/dL (0.0-1.2) Aspartate Amino Transf (AST/SGOT) 23 U/L (5-40) 18 U/L (5-40) Alanine Aminotransferase (ALT/SGPT) 8 U/L (3-41) 7 U/L (3-41) Alkaline Phosphatase 101 U/L (40-129) 91 U/L (40-129) Troponin I < 0.30 ng/mL (<=0.30) Total Protein 7.7 g/dL (6.6-8.7) 6.7 g/dL (6.6-8.7) Albumin 3.9 g/dL (3.5-5.2) 3.7 g/dL (3.5-5.2) Globulin 3.8 g/dL 3.0 g/dL Albumin/Globulin Ratio 1.0 (1.0-2.7) 1.2 (1.0-2.7) Lipase 38 U/L (< 60) Plasma/Serum Osmolality Pending Uric Acid 7.1 mg/dL (3.0-7.5) Phosphorus Level 4.2 mg/dL (2.5-4.8) Magnesium Level 1.7 mg/dL (1.7-2.5) Total Creatine Kinase 248 U/L (38-174) H Free Thyroxine 1.03 ng/dL (0.86-1.85) Microbiology Date/Time Source Procedure Growth Status 01/31/17 19:19 Urine,Clean Catch Urine Culture - Preliminary Resulted Height (Feet): 5 Height (Inches): 6.00 Weight (Pounds): 165 Medications Current Medications Medications (Trade) Dose Ordered Sig/Gabby Route PRN Reason Start Time Stop Time Status Last Admin Dose Admin Acetaminophen (Tylenol) 650 mg Q4H PRN ORAL fever 01/31/17 23:15 03/02/17 23:14 Albuterol/ Ipratropium 3 ml 3 ml Q4H PRN HHN Shortness of Breath 01/31/17 23:15 02/05/17 23:14 Aspirin (ASA) 81 mg DAILY ORAL 02/01/17 09:00 03/03/17 08:59 02/01/17 08:36 Cefepime HCl/ Dextrose (Maxipime/D5W) 110 ml @ 220 mls/hr Q24H IV 02/01/17 09:00 02/08/17 08:59 02/01/17 08:52 Dextrose STAT PRN IV Hypoglycemia 01/31/17 23:15 03/02/17 23:14 Duloxetine HCl (Cymbalta) 30 mg DAILY ORAL 02/01/17 09:00 03/03/17 08:59 02/01/17 08:36 Gabapentin (Neurontin) 400 mg THREE TIMES A DAY ORAL 02/01/17 09:00 03/03/17 08:59 02/01/17 12:13 Heparin Sodium (Porcine) (Heparin 5000 units/ml) 5,000 units EVERY 12 HOURS SUBQ 02/01/17 09:00 03/03/17 08:59 02/01/17 08:41 Levetiracetam (Keppra) 500 mg EVERY 12 HOURS ORAL 02/01/17 09:00 03/03/17 08:59 02/01/17 08:36 Metronidazole (Flagyl) 100 ml @ 100 mls/hr Q8HR IVPB 02/01/17 15:00 02/08/17 14:59 02/01/17 14:36 Morphine Sulfate (Morphine Sulfate) 2 mg Q4H PRN IVP Moderate Pain (Pain Scale 4-6) 01/31/17 23:15 02/07/17 23:14 02/01/17 08:53 Nitroglycerin (Ntg) 0.4 mg Every 5 Minutes PRN SL Prn Chest Pain 01/31/17 23:15 03/02/17 23:14 Ondansetron HCl (Zofran) 4 mg Q6H PRN IVP Nausea & Vomiting 01/31/17 23:15 03/02/17 23:14 Polyethylene Glycol (Miralax) 17 gm DAILYPRN PRN ORAL Constipation 01/31/17 23:15 03/02/17 23:14 Sodium Chloride (Sodium Chloride 1000ml bag) 1,000 ml @ 100 mls/hr Q10H IVLG 02/01/17 00:21 03/03/17 00:20 02/01/17 10:51 Tamsulosin HCl (Flomax) 0.4 mg BEDTIME ORAL 02/01/17 21:00 03/03/17 20:59 Temazepam (Restoril) 15 mg HSPRN PRN ORAL Insomnia 01/31/17 23:15 02/07/17 23:14 02/01/17 01:02 Terazosin HCl 5 mg 5 mg DAILY ORAL 02/01/17 09:00 03/03/17 08:59 Assessment/Plan Problem List: (1) Abdominal pain ICD Codes: R10.9 - Unspecified abdominal pain SNOMED: 97096618 (2) UTI (urinary tract infection) ICD Codes: N39.0 - Urinary tract infection, site not specified SNOMED: 40069825 (3) Lymphadenopathy ICD Codes: R59.1 - Generalized enlarged lymph nodes SNOMED: 74359546 (4) History of CVA (cerebrovascular accident) ICD Codes: Z86.73 - Personal history of transient ischemic attack (TIA), and cerebral infarction without residual deficits SNOMED: 614931257 (5) HTN (hypertension) ICD Codes: I10 - Essential (primary) hypertension SNOMED: 05766734 (6) Seizure disorder ICD Codes: G40.909 - Epilepsy, unspecified, not intractable, without status epilepticus SNOMED: 734577922 Assessment/Plan GI and oncology evaluation sliding scale diabetic diet. tumor markers. FORTINO POLO Feb 01, 2017 16:39
[2017-02-01 20:03] VITALS: BP 135/87
[2017-02-01] MEDS ORDERED: Tamsulosin 0.4mg cap ORAL SCH (21:00)
[2017-02-01] MEDS: NovoLOG Insulin Flexpen SUBQ SCH (21:30)
--- NOTE | 2017-02-01 23:15 | Consultation ---
DATE OF CONSULTATION: 02/01/2017 INFECTIOUS DISEASES CONSULTATION CONSULTING PHYSICIAN: Sixto Eid M.D. REQUESTING PHYSICIAN: Cale Hopkins M.D. REASON FOR CONSULTATION: Evaluation of the patient for intraabdominal sepsis and antibiotic management. HISTORY OF PRESENT ILLNESS: The patient is a 66-year-old male who was admitted to this medical center with abdominal pain. The patient was found to have mild leukocytosis at the time of admission. Infectious Disease consultation has been requested for further evaluation of the patient and antibiotic management. PAST MEDICAL HISTORY: 1. History of cellulitis of left upper extremity. 2. 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 3. History of EGD and colonoscopy that showed evidence of gastritis and hemorrhoids in July 2016. MEDICATIONS: On IV cefepime and vancomycin. ALLERGIES: No known drug allergies. SOCIAL HISTORY: Negative for alcohol or drug abuse. FAMILY HISTORY: Noncontributing. PHYSICAL EXAMINATION: VITAL SIGNS: Temperature 98 degrees, blood pressure 116/73, pulse 67, and respiratory rate 18. HEENT: No pale conjunctivae. No icterus. NECK: No lymphadenopathy. CHEST: Coarse breathing sounds. HEART: S1 and S2. ABDOMEN: Soft. The patient has left lower quadrant tenderness. NEUROLOGIC: Awake and alert. LABORATORY AND DIAGNOSTIC DATA: White blood cell count is 11.1, hemoglobin 11, and platelets 248,000. UA 10 to 15 red blood cells and 5 to 10 white blood cells. BUN 30 and creatinine 1.5. ALT, AST, and alkaline phosphatase unremarkable. Urine culture pending. CT of the abdomen showed peritoneum, lymphoma or malignancy cannot be ruled out. Wall thickening of small bowels in the mid to lower abdomen, possible enteritis. ASSESSMENT: The patient is a 66-year-old male with multiple medical problems as listed above, who came to the hospital and has: 1. Leukocytosis. 2. Left lower quadrant abdominal pain, possible diverticulitis (the patient had a CT scan of the abdomen without contrast in view of the patient's renal function). 3. Mild hematuria. 4. Acute renal insufficiency, improving. 5. History of diarrhea. PLAN: 1. We will continue the patient on cefepime. We will add Flagyl. Discontinue vancomycin. 2. Monitor CBC. 3. Monitor BMP. 4. Monitor cultures (urine). 5. We will check HIV test. 6. Recommend GI evaluation for abdominal pain. 7. Based on the patient's clinical course and labs, we will give further recommendations. Thank you, Dr. Hopkins, for allowing me to participate in the care of this patient. I will follow the patient with you during this hospitalization. Sixto Eid M.D. DR: Flora JOB#: [id number] CC:
[2017-02-01 23:41] VITALS: BP 141/75
[2017-02-02] VITALS (14 sets, daily range): BP systolic 131–177; BP diastolic 68–102
[2017-02-02 02:28] LABS: KETONES,URINE NEGATIVE (NEGATIVE); LEUKOCYTE ESTERASE ,URINE 3+ (NEGATIVE); NITRITE,URINE NEGATIVE (NEGATIVE); PH,URINE 5 (4.5-8.0); PROTEIN,URINE NEGATIVE (NEGATIVE); UROBILINOGEN,URINE NORMAL MG/DL (0.0-1.0)
[2017-02-02 02:39] LABS: APPEARANCE,URINE SLIGHTLY CLOUDY
[2017-02-02 02:40] LABS: BACTERIA,URINE FEW /HPF; RBC,URINE 0-2 /HPF (0 - 0); SQUAMOUS EPITHELIAL CELL,UR FEW /LPF (NONE/OCC); WBC,URINE TNTC /HPF (0 - 0)
[2017-02-02] MEDS: Morphine Sulfate 2mg/ml Inj IVP PRN ×2 (03:42→20:03)
[2017-02-02] MEDS: metroNIDAZOLE 500mg 100 ML IVPB SCH ×3 (05:56→21:55)
[2017-02-02] MEDS: NovoLOG Insulin Flexpen SUBQ SCH ×4 (05:57→22:02)
--- NOTE | 2017-02-02 06:30 | Consultation ---
DATE OF CONSULTATION: 02/01/2017 HEMATOLOGY/ONCOLOGY CONSULTATION CONSULTING PHYSICIAN: Benjy Godwin M.D. REQUESTING PHYSICIAN: Cale Hopkins M.D. REASON FOR CONSULTATION: Evaluation of retroperitoneal lymphadenopathy. IDENTIFYING DATA: Dear Dr. Cale Hopkins, The patient is a pleasant 66-year-old male with past medical history significant for CVA, diabetes mellitus, hypertension, and he is a [facility] resident, at this time presents to the hospital with left-sided abdominal pain, had a CAT scan, which showed retroperitoneal lymphadenopathy, and has had problems with intermittent constipation on further evaluation. Oncology service was consulted for biopsy and evaluation of malignancy such as lipoma. PAST MEDICAL HISTORY: Hypertension, diabetes mellitus, and CVA. PAST SURGICAL HISTORY: None reported. MEDICATIONS: Insulin . Aspirin, benazepril, bisacodyl, fluoxetine, , Bactrim, Zocor, tamsulosin, . ALLERGIES: No known drug allergies. REVIEW OF SYSTEMS: Negative except for history of present illness.Constitutional: No fever, chills, or night sweats. Skin: No rashes, lumps, or itching. HEENT: No headache, hearing or vision changes. Breasts: No lumps, pain, or discharge. Pulmonary: No cough, sputum, or shortness of breath. Cardiovascular: No chest pain, tightness, or palpitations. Gastrointestinal: No nausea, vomiting, or diarrhea. PHYSICAL EXAMINATION: GENERAL: No acute distress. VITAL SIGNS: Temperature 98 degrees Fahrenheit, pulse rate 63, respiratory rate 12, blood pressure 115/59, and pulse oximetry 97% on room air. PULMONARY: Decreased breath sounds. CARDIOVASCULAR: Regular rate. No S3 or S4. ABDOMEN: Soft, nontender, and nondistended. EXTREMITIES: There is 1+ edema. LABORATORY DATA: Urinalysis shows a UTI. WBC of 5.9, hemoglobin 11.5, hematocrit 35, and platelet count 232,000. INR 1. ASSESSMENT AND PLAN: 1. Retroperitoneal lymphadenopathy. We will obtain a CT-guided biopsy concerning for lymphoma. 2. Anemia secondary to chronic disease versus malignancy. 3. History of urinary tract infection, again, treated with antibiotics. 4. Abdominal pain, left sided, potentially . 5. Seizure disorder. 6. Discussed with Interventional Radiology potentially to obtain biopsy on 02/02/2017. 7. Appreciate consultation greatly. Benjy Godwin M.D. DR: REGINE JOB#: [id number] CC:
[2017-02-02 07:30] LABS: MEAN CORPUSCULAR HEMOGLOBIN 29.5 PG (27.0-31.0); MEAN CORPUSCULAR HGB CONC 33.5 G/DL (32.0-36.0); MEAN CORPUSCULAR VOLUME 88 FL (80-99); MEAN PLATELET VOLUME 6.1 FL (6.5-10.1); PLATELET COUNT 257 K/UL (150-450); RED BLOOD COUNT 3.95 M/UL (4.70-6.10)
[2017-02-02 08:05] LABS: PROTHROMBIN TIME 10.4 SEC (9.30-11.50)
[2017-02-02] MEDS: Aspirin Baby 81mg ORAL SCH (08:30)
[2017-02-02] MEDS: DULoxetine 30mg cap ORAL SCH (08:30)
[2017-02-02] MEDS: Heparin 5000 units/ml inj SUBQ SCH ×2 (08:34→22:01)
[2017-02-02 09:40] LABS: PATH BLOOD SMEAR/OMC SENT TO PATHOLOGIST
[2017-02-02 09:41] LABS: ERYTHROCYTE SEDIMENTATION RATE 35 MM/HR (0-20); RETICULOCYTE COUNT 0.8 % (0.0-2.0)
[2017-02-02] MEDS: Cefepime HCl 2 GM in D5W 110 ML IV SCH (09:47)
[2017-02-02 09:55] LABS: BAND NEUTROPHILS % (MANUAL) 0 % (0-8); BASOPHILS % (MANUAL) 0 % (0-2); EOSINOPHILS % (MANUAL) 8 % (0-3); HYPOCHROMASIA 1+; LYMPHOCYTES % (MANUAL) 26 % (20-45); NEUTROPHILS % (MANUAL) 58 % (45-75); PLATELET ESTIMATE ADEQUATE; PLATELET MORPHOLOGY NORMAL; TOTAL CELLS COUNTED 100
[2017-02-02] MEDS ORDERED: Lidocaine 1% Plain 30 ml INJ ONE (10:15)
[2017-02-02] MEDS ORDERED: Heparin 2000 units/Ns 1000ml INJ ONE (10:15)
--- NOTE | 2017-02-02 11:06 | Pre-Procedure Note/Attestation ---
Pre-Procedure Note/Attestation Complete Prior to Procedure Planned Procedure: not applicable Procedure Narrative: CT guided retroperitoneal biopsy Indications for Procedure Pre-Operative Diagnosis: lymphadenopathy Attestation I attest that I discussed the nature of the procedure; its benefits; risks and complications; and alternatives (and the risks and benefits of such alternatives ), prior to the procedure, with the patient (or the patient's legal sales representative raw fibers). I attest that, if there was a reasonable possibility of needing a blood transfusion, the patient (or the patient's legal sales representative raw fibers) was given the [facility] standardized written summary, pursuant to the Rony Yoni Blood Safety Act ([place] Health and Safety Code # 1645, as amended). I attest that I re-evaluated the patient just prior to the surgery and that there has been no change in the patient's H&P, except as documented below: TORRES ARREDONDO M.D. Feb 02, 2017 11:06
--- NOTE | 2017-02-02 11:43 | Brief Operative Note ---
Immediate Post Operative Note Operative Note Pre-op Diagnosis: lymphadenopathy Procedure: CT guided bx retroperitoneum Post-op Diagnosis: same as pre-op Findings: consistent w/pre-op dx studies Surgeon: Ron ARREDONDO Anesthesia: local Specimen: yes - 5 18 G cores Complications: none Condition: stable Fluids: none Implant(s) used?: No TORRES ARREDONDO M.D. Feb 02, 2017 11:43
--- NOTE | 2017-02-02 13:47 | GI Initial Consult Note ---
NormaOlga Gleason N.P. 02/02/17 1347: History of Present Illness General Date patient seen: Feb 02, 2017 Time patient seen: 11:00 Reason for Hospitalization: Abdominal Pain Referring physician: FORTINO OWENS Reason for Consultation: ABDOMINAL PAIN Present Illness HPI Patient is a 66-year-old male who presented after increased left-sided abdominal pain. The patient reports having similar episodes in the past. Patient noted have increased pain to his left lower abdomen. The pain was constant nature. The patient denied any fever. He reported having bowel movement this morning. The patient had problems with intermittent constipation. Patient was at residential. GI Consult. HPI as noted above. GI consulted for abdominal pain x 4 days of unknown etiology. APCT shows development of lymphadenopathy within the retroperitoneum. The possibility of malignant neoplasm or lymphoma should be considered. Possible enteritis, see full report. Pt seen on floor, awake A&Ox4 NAD c/o of generalized pain all quads tender to touch. Denies any N/V or diarrhea or constipation at this time. This patient was seen here at [place] last year s/p open mohit, s/p ERCP with stent placement with bile leak and s/p ERCP with stent removal back in march 2016. The patient also had EGD/colonoscopy performed this 2016 with gastritis and internal hemorrhoids. Home Meds Active Scripts Nitrofurantoin Monohyd/M-Cryst* (MACROBID 100 MG*) 100 Mg Capsule, 100 MG ORAL EVERY 12 HOURS for 7 Days, #14 CAP Prov:Ifeoma Bradshaw 06/28/16 Phenazopyridine Hcl* (PYRIDIUM*) 100 Mg Tablet, 100 MG ORAL THREE TIMES A DAY for 7 Days, TAB Prov:MARYAN YOUNG M.D. 06/24/16 Ciprofloxacin Hcl* (CIPROFLOXACIN HCL*) 500 Mg Tablet, 500 MG ORAL Q12H, #14 TAB 0 Refills Prov:MARYAN YOUNG M.D. 06/24/16 Terazosin HCl (Terazosin HCl) 5 Mg Capsule, 5 MG ORAL DAILY, #30 CAP Prov:FORTINO POLO 02/19/16 Reported Medications Trimethoprim/Sulfamethoxazole (Bactrim Ds Tablet) 1 Each Tablet, 1 TAB ORAL TWICE A DAY for 7 Days, TAB 08/23/16 Amoxicillin/Potassium Clav 875-125* (AUGMENTIN 875-125 TABLET*) 1 Each Tablet, 1 TAB ORAL TWICE A DAY for 7 Days, TAB 08/23/16 Insulin Glargine (LANTUS) 100 Unit/1 Ml Insuln.pen, 20 UNITS SUBQ BEDTIME, #1 EA 0 Refills 08/17/16 Hydrocodone Bit/Acetaminophen 5-325* (NORCO 5-325 TABLET*) 1 Each Tablet, 1 TAB ORAL Q6HR Y for For Pain, TAB 08/17/16 Cranberry Extract (CRANBERRY) 425 Mg Capsule, 425 MG PO BID, CAP 08/17/16 Hydrocodone Bit/Acetaminophen 10-325* (NORCO 10-325*) 1 Each Tablet, 1 TAB ORAL Q6H Y for For Pain, #10 TAB 0 Refills PRN PAIN 01/30/16 Hydrocodone Bit/Acetaminophen 10-325* (NORCO 10-325*) 1 Each Tablet, 1 TAB ORAL Q4H Y for For Pain, TAB 0 Refills PRN PAIN 12/27/15 Duloxetine Hcl* (CYMBALTA*) 30 Mg Capsule.dr, 30 MG ORAL DAILY, CAP 12/27/15 Diphenhydramine HCl (Benadryl) 25 Mg Capsule, 25 MG PO Q6HR Y for Itching, CAP 12/27/15 Polyvinyl Alcohol (POLYVINYL ALCOHOL) 15 Ml Drops, 15 ML OP, ML 12/27/15 Acetaminophen (Tylenol) 325 Mg Tab, 650 MG ORAL Q6H Y for Fever/Headache/Mild Pain, #30 TAB 0 Refills 12/27/15 Simvastatin (ZOCOR) 20 Mg Tablet, 20 MG ORAL BEDTIME, TAB 12/27/15 Multivitamin (MULTI VITAMIN DAILY) 1 Each Tablet, 1 TAB ORAL DAILY, #30 TAB 0 Refills 12/27/15 Magnesium Hydroxide* (MILK OF MAGNESIA*) 400 Mg/5 Ml Oral.susp, 30 ML ORAL DAILY , ML 12/27/15 Benazepril Hcl* (LOTENSIN*) 20 Mg Tablet, 20 MG ORAL DAILY, TAB 12/27/15 Levetiracetam (KEPPRA) 500 Mg Tablet, 500 MG ORAL EVERY 12 HOURS, #60 TAB 0 Refills 12/27/15 Insulin Lispro (HUMALOG) 100 Unit/1 Ml Cartridge, 0 SUBQ, #1 UNITS 0 Refills 12/27/15 Gabapentin* (GABAPENTIN*) 600 Mg Tablet, 600 MG ORAL DAILY, TAB 12/27/15 Tamsulosin Hcl (TAMSULOSIN HCL*) 0.4 Mg Cap.er.24h, 0.4 MG ORAL BEDTIME, CAP 12/27/15 Bisacodyl* (DULCOLAX*) 5 Mg Tablet.dr, 10 MG ORAL DAILY, #10 TAB 0 Refills 12/27/15 Docusate Sodium* (COLACE*) 100 Mg Capsule, 100 MG ORAL DAILY, CAP 12/27/15 Aspirin* (ASPIRIN*) 81 Mg Tab.chew, 81 MG ORAL DAILY, TAB 12/27/15 Dutasteride (AVODART) 0.5 Mg Capsule, 0.5 MG ORAL DAILY, CAP 12/27/15 Brimonidine Tartrate* (ALPHAGAN*) 5 Ml Drops, 1 DROP BOTH EYES TID, ML 12/27/15 Gabapentin* (GABAPENTIN*) 400 Mg Capsule, 400 MG ORAL THREE TIMES A DAY, CAP 02/13/13 [lispro insulin] No Conflict Check 02/13/13 Med list reviewed/reconciled: Yes Allergies: Coded Allergies: No Known Allergies (Unverified , 02/13/13) Patient History History Provided By: Patient, Medical Record PMH Narrative Past Medical History: No History, Except For Hx Cardiac Problems: Yes - hyperlipidemia, glaucoma Hx Hypertension: Yes Hx Diabetes: Yes Hx Cancer: No Hx Gastrointestinal Problems: Yes Hx Cerebrovascular Accident: Yes - CVA (hemiplegia and hemiparesis) x3 Hx Seizures: Yes Hx Dizziness: Yes Hx Syncope: Yes Hx Weakness: Yes - RIGHT LOWER LEG Social History: Denies: alcohol use, drug use, other, smoking Review of Systems All Other Systems: negative except mentioned in HPI Physical Exam Vital Signs Date Time Temp Pulse Resp B/P Pulse Ox O2 Delivery O2 Flow Rate FiO2 01/31/17 17:29 98.1 74 16 95/63 98 Room Air 02/01/17 07:40 21 Sp02 EP Interpretation: reviewed Labs Laboratory Tests Test 02/02/17 00:30 02/02/17 05:15 Urine Color Pale yellow Urine Appearance Slightly cloudy Urine pH 5 (4.5-8.0) Urine Specific [place] 1.010 (1.005-1.035) Urine Protein Negative (NEGATIVE) Urine Glucose (UA) 1+ (NEGATIVE) H Urine Ketones Negative (NEGATIVE) Urine Occult Blood 1+ (NEGATIVE) H Urine Nitrite Negative (NEGATIVE) Urine Bilirubin Negative (NEGATIVE) Urine Urobilinogen Normal MG/DL (0.0-1.0) Urine Leukocyte Esterase 3+ (NEGATIVE) H Urine RBC 0-2 /HPF (0 - 0) H Urine WBC Tntc /HPF (0 - 0) H Urine Squamous Epithelial Cells Few /LPF (NONE/OCC) Urine Bacteria Few /HPF (NONE) Urine Eosinophils None seen White Blood Count 5.0 K/UL (4.8-10.8) Red Blood Count 3.95 M/UL (4.70-6.10) L Hemoglobin 11.6 G/DL (14.2-18.0) L Hematocrit 34.7 % (42.0-52.0) L Mean Corpuscular Volume 88 FL (80-99) Mean Corpuscular Hemoglobin 29.5 PG (27.0-31.0) Mean Corpuscular Hemoglobin Concent 33.5 G/DL (32.0-36.0) Red Cell Distribution Width 13.0 % (11.6-14.8) Platelet Count 257 K/UL (150-450) Mean Platelet Volume 6.1 FL (6.5-10.1) L Neutrophils (%) (Auto) % (45.0-75.0) Lymphocytes (%) (Auto) % (20.0-45.0) Monocytes (%) (Auto) % (1.0-10.0) Eosinophils (%) (Auto) % (0.0-3.0) Basophils (%) (Auto) % (0.0-2.0) Differential Total Cells Counted 100 Neutrophils % (Manual) 58 % (45-75) Lymphocytes % (Manual) 26 % (20-45) Monocytes % (Manual) 8 % (1-10) Eosinophils % (Manual) 8 % (0-3) H Basophils % (Manual) 0 % (0-2) Band Neutrophils 0 % (0-8) Platelet Estimate Adequate Platelet Morphology Normal Hypochromasia 1+ Erythrocyte Sedimentation Rate 35 MM/HR (0-20) H Reticulocyte Count 0.8 % (0.0-2.0) Prothrombin Time 10.4 SEC (9.30-11.50) Prothromb Time International Ratio 1.0 (0.9-1.1) Activated Partial Thromboplast Time 35 SEC (23-33) H Iron Level 50 ug/dL (59-158) L Total Iron Binding Capacity 258 ug/dL (250-400) Percent Iron Saturation 19 % (15-50) Unsaturated Iron Binding 208 ug/dL (112-346) Lactate Dehydrogenase 209 U/L (135-230) Carcinoembryonic Antigen 5.4 ng/mL H CA 15-3 Antigen Pending CA 19-9 Antigen 0.600 U/mL (< 37) CA 27.29 Pending CA 125 Antigen Pending Vitamin B12 Level 261 pg/mL (211-946) Folate Pending General Appearance: well appearing, no apparent distress, alert Head: normocephalic EENT: normal ENT inspection Neck: supple Respiratory: normal breath sounds Cardiovascular: normal rate Gastrointestinal: tenderness Musculoskeletal: back normal Neurologic: normal inspection, alert, oriented x3, responsive Psychiatric: normal inspection, judgement/insight normal, memory normal Skin: normal inspection, normal color, no rash, warm/dry Lymphatic: normal inspection, no adenopathy Current Medications Current Medications Medications (Trade) Dose Ordered Sig/Gabby Route PRN Reason Start Time Stop Time Status Last Admin Dose Admin Acetaminophen (Tylenol) 650 mg Q4H PRN ORAL fever 01/31/17 23:15 03/02/17 23:14 Albuterol/ Ipratropium 3 ml 3 ml Q4H PRN HHN Shortness of Breath 01/31/17 23:15 02/05/17 23:14 Aspirin (ASA) 81 mg DAILY ORAL 02/01/17 09:00 03/03/17 08:59 02/02/17 08:30 Cefepime HCl/ Dextrose (Maxipime/D5W) 110 ml @ 220 mls/hr Q24H IV 02/01/17 09:00 02/08/17 08:59 02/02/17 09:47 Dextrose (Dextrose 50%) STAT PRN IV Hypoglycemia 02/01/17 17:30 03/03/17 17:29 Dextrose STAT PRN IV Hypoglycemia 01/31/17 23:15 03/02/17 23:14 Duloxetine HCl (Cymbalta) 30 mg DAILY ORAL 02/01/17 09:00 03/03/17 08:59 02/02/17 08:30 Gabapentin (Neurontin) 400 mg THREE TIMES A DAY ORAL 02/01/17 09:00 03/03/17 08:59 02/02/17 12:57 Heparin Sodium (Porcine) (Heparin 5000 units/ml) 5,000 units EVERY 12 HOURS SUBQ 02/01/17 09:00 03/03/17 08:59 02/02/17 08:34 Insulin Aspart (NovoLOG) BEFORE MEALS AND HS SUBQ 02/01/17 21:00 03/03/17 20:59 02/02/17 12:18 Levetiracetam (Keppra) 500 mg EVERY 12 HOURS ORAL 02/01/17 09:00 03/03/17 08:59 02/02/17 08:30 Metronidazole (Flagyl) 100 ml @ 100 mls/hr Q8HR IVPB 02/01/17 15:00 02/08/17 14:59 02/02/17 05:56 Morphine Sulfate (Morphine Sulfate) 2 mg Q4H PRN IVP Moderate Pain (Pain Scale 4-6) 01/31/17 23:15 02/07/17 23:14 02/02/17 03:42 Nitroglycerin (Ntg) 0.4 mg Every 5 Minutes PRN SL Prn Chest Pain 01/31/17 23:15 03/02/17 23:14 Ondansetron HCl (Zofran) 4 mg Q6H PRN IVP Nausea & Vomiting 01/31/17 23:15 03/02/17 23:14 Polyethylene Glycol (Miralax) 17 gm DAILYPRN PRN ORAL Constipation 01/31/17 23:15 03/02/17 23:14 Tamsulosin HCl (Flomax) 0.4 mg BEDTIME ORAL 02/01/17 21:00 03/03/17 20:59 02/01/17 21:20 Temazepam (Restoril) 15 mg HSPRN PRN ORAL Insomnia 01/31/17 23:15 02/07/17 23:14 02/01/17 01:02 Terazosin HCl (Hytrin) 5 mg DAILY ORAL 02/01/17 09:00 03/03/17 08:59 02/02/17 08:34 GI: Plan Problems: (1) longterm resident (2) History of CVA (cerebrovascular accident) (3) Abdominal pain (4) Lymphadenopathy (5) Anemia Plan s/p ERCP with stent removal for bile leak 2015 hx hepatitis panel >> negative s/p EGD and colon with findings of gastritis, hemorrhoids AP CT reviewed >> lymphadenopathy, enteritis, see full report. symptomatic treatment fu CT guided bx ADA diet prn blood transfusions zofran prn pain mgmt ppi fu labs Discussed with Dr. Vivar. Thank you for referring this patient, we will follow. TIM VIVAR 02/03/17 8592: History of Present Illness General Reason for Hospitalization: Abdominal Pain Present Illness Home Meds Active Scripts Nitrofurantoin Monohyd/M-Cryst* (MACROBID 100 MG*) 100 Mg Capsule, 100 MG ORAL EVERY 12 HOURS for 7 Days, #14 CAP Prov:Ifeoma Bradshaw 06/28/16 Phenazopyridine Hcl* (PYRIDIUM*) 100 Mg Tablet, 100 MG ORAL THREE TIMES A DAY for 7 Days, TAB Prov:MARYAN YOUNG M.D. 06/24/16 Ciprofloxacin Hcl* (CIPROFLOXACIN HCL*) 500 Mg Tablet, 500 MG ORAL Q12H, #14 TAB 0 Refills Prov:MARYAN YOUNG M.D. 06/24/16 Terazosin HCl (Terazosin HCl) 5 Mg Capsule, 5 MG ORAL DAILY, #30 CAP Prov:FORTINO POLO 02/19/16 Reported Medications Trimethoprim/Sulfamethoxazole (Bactrim Ds Tablet) 1 Each Tablet, 1 TAB ORAL TWICE A DAY for 7 Days, TAB 08/23/16 Amoxicillin/Potassium Clav 875-125* (AUGMENTIN 875-125 TABLET*) 1 Each Tablet, 1 TAB ORAL TWICE A DAY for 7 Days, TAB 08/23/16 Insulin Glargine (LANTUS) 100 Unit/1 Ml Insuln.pen, 20 UNITS SUBQ BEDTIME, #1 EA 0 Refills 08/17/16 Hydrocodone Bit/Acetaminophen 5-325* (NORCO 5-325 TABLET*) 1 Each Tablet, 1 TAB ORAL Q6HR Y for For Pain, TAB 08/17/16 Cranberry Extract (CRANBERRY) 425 Mg Capsule, 425 MG PO BID, CAP 08/17/16 Hydrocodone Bit/Acetaminophen 10-325* (NORCO 10-325*) 1 Each Tablet, 1 TAB ORAL Q6H Y for For Pain, #10 TAB 0 Refills PRN PAIN 01/30/16 Hydrocodone Bit/Acetaminophen 10-325* (NORCO 10-325*) 1 Each Tablet, 1 TAB ORAL Q4H Y for For Pain, TAB 0 Refills PRN PAIN 12/27/15 Duloxetine Hcl* (CYMBALTA*) 30 Mg Capsule.dr, 30 MG ORAL DAILY, CAP 12/27/15 Diphenhydramine HCl (Benadryl) 25 Mg Capsule, 25 MG PO Q6HR Y for Itching, CAP 12/27/15 Polyvinyl Alcohol (POLYVINYL ALCOHOL) 15 Ml Drops, 15 ML OP, ML 12/27/15 Acetaminophen (Tylenol) 325 Mg Tab, 650 MG ORAL Q6H Y for Fever/Headache/Mild Pain, #30 TAB 0 Refills 12/27/15 Simvastatin (ZOCOR) 20 Mg Tablet, 20 MG ORAL BEDTIME, TAB 12/27/15 Multivitamin (MULTI VITAMIN DAILY) 1 Each Tablet, 1 TAB ORAL DAILY, #30 TAB 0 Refills 12/27/15 Magnesium Hydroxide* (MILK OF MAGNESIA*) 400 Mg/5 Ml Oral.susp, 30 ML ORAL DAILY , ML 12/27/15 Benazepril Hcl* (LOTENSIN*) 20 Mg Tablet, 20 MG ORAL DAILY, TAB 12/27/15 Levetiracetam (KEPPRA) 500 Mg Tablet, 500 MG ORAL EVERY 12 HOURS, #60 TAB 0 Refills 12/27/15 Insulin Lispro (HUMALOG) 100 Unit/1 Ml Cartridge, 0 SUBQ, #1 UNITS 0 Refills 12/27/15 Gabapentin* (GABAPENTIN*) 600 Mg Tablet, 600 MG ORAL DAILY, TAB 12/27/15 Tamsulosin Hcl (TAMSULOSIN HCL*) 0.4 Mg Cap.er.24h, 0.4 MG ORAL BEDTIME, CAP 12/27/15 Bisacodyl* (DULCOLAX*) 5 Mg Tablet.dr, 10 MG ORAL DAILY, #10 TAB 0 Refills 12/27/15 Docusate Sodium* (COLACE*) 100 Mg Capsule, 100 MG ORAL DAILY, CAP 12/27/15 Aspirin* (ASPIRIN*) 81 Mg Tab.chew, 81 MG ORAL DAILY, TAB 12/27/15 Dutasteride (AVODART) 0.5 Mg Capsule, 0.5 MG ORAL DAILY, CAP 12/27/15 Brimonidine Tartrate* (ALPHAGAN*) 5 Ml Drops, 1 DROP BOTH EYES TID, ML 12/27/15 Gabapentin* (GABAPENTIN*) 400 Mg Capsule, 400 MG ORAL THREE TIMES A DAY, CAP 02/13/13 [lispro insulin] No Conflict Check 02/13/13 Allergies: Coded Allergies: No Known Allergies (Unverified , 02/13/13) GI: Plan Plan The patient was seen and examined at bedside and all new and available data was reviewed in the patients chart. I agree with the above findings, impression and plan. (Patient seen earlier today. Signature stamp does not reflect patient encounter time.). -Mavis Hinojosa MDh Victorino N.Lucille Feb 02, 2017 13:47 TIM VIVAR Feb 03, 2017 16:52
--- NOTE | 2017-02-02 16:46 | Infectious Diseases Prog Note ---
Assessment/Plan Assessment/Plan ASSESSMENT: The patient is a 66-year-old male with Leukocytosis. Left lower quadrant abdominal pain Possible diverticulitis Retroperineal LAP History of cellulitis of left upper extremity. 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 History of EGD and colonoscopy : gastritis and hemorrhoids in July 2016 Mild hematuria. Acute renal insufficiency, improving. PLAN: cont pt on cefepime and Flagyl d# 2 Monitor CBC. Monitor BMP. Monitor cultures (urine) HIV test GI evaluation for abdominal pain CT guided retroperitoneal biopsy :P Subjective Constitutional: Denies: anorexia, chills, drenching sweats, fatigue, fever, no symptoms, other Allergies: Coded Allergies: No Known Allergies (Unverified , 02/13/13) Objective Vital Signs Last 24 Hour Vital Signs Date Time Temp Pulse Resp B/P Pulse Ox O2 Delivery O2 Flow Rate FiO2 02/02/17 16:18 98.1 74 18 141/69 Room Air 02/02/17 11:40 87 15 168/90 100 Room Air 02/02/17 11:35 84 13 162/83 99 Room Air 02/02/17 11:30 83 12 177/96 99 Room Air 02/02/17 11:25 86 12 174/93 99 Room Air 02/02/17 11:20 84 14 176/89 99 Room Air 02/02/17 11:15 70 18 152/85 99 Room Air 02/02/17 11:10 85 12 142/90 99 Room Air 02/02/17 11:05 84 14 148/87 99 Room Air 02/02/17 10:31 76 12 02/02/17 08:00 98.7 78 18 174/96 98 Room Air 02/02/17 07:35 78 16 Room Air 21 02/02/17 04:14 98.1 78 20 146/79 98 Room Air 02/02/17 04:12 98.1 02/01/17 23:41 98.2 71 20 141/75 99 Room Air 02/01/17 20:03 97.7 68 20 135/87 97 Room Air 02/01/17 19:15 72 16 Room Air 21 Height (Feet): 5 Height (Inches): 6.00 Weight (Pounds): 165 HEENT: atraumatic Respiratory/Chest: normal breath sounds Cardiovascular: regular rhythm Abdomen: no organomegaly Skin: no lesions Microbiology Date/Time Source Procedure Growth Status 01/31/17 19:19 Nasal Nares MRSA Culture - Final NO METHICILLIN RESISTANT STAPH AUREUS... Complete 02/01/17 15:18 Indwelling Cath Urine Culture - Preliminary Resulted 01/31/17 19:19 Urine,Clean Catch Urine Culture - Preliminary Gram Negative Bacillus 1 Resulted 01/31/17 19:19 Rectum VRE Culture - Final NO VANCOMYCIN RESISTANT ENTEROCOCCUS ... Complete Laboratory Tests Test 02/02/17 00:30 02/02/17 05:15 Urine Color Pale yellow Urine Appearance Slightly cloudy Urine pH 5 (4.5-8.0) Urine Specific [place] 1.010 (1.005-1.035) Urine Protein Negative (NEGATIVE) Urine Glucose (UA) 1+ (NEGATIVE) H Urine Ketones Negative (NEGATIVE) Urine Occult Blood 1+ (NEGATIVE) H Urine Nitrite Negative (NEGATIVE) Urine Bilirubin Negative (NEGATIVE) Urine Urobilinogen Normal MG/DL (0.0-1.0) Urine Leukocyte Esterase 3+ (NEGATIVE) H Urine RBC 0-2 /HPF (0 - 0) H Urine WBC Tntc /HPF (0 - 0) H Urine Squamous Epithelial Cells Few /LPF (NONE/OCC) Urine Bacteria Few /HPF (NONE) Urine Eosinophils None seen White Blood Count 5.0 K/UL (4.8-10.8) Red Blood Count 3.95 M/UL (4.70-6.10) L Hemoglobin 11.6 G/DL (14.2-18.0) L Hematocrit 34.7 % (42.0-52.0) L Mean Corpuscular Volume 88 FL (80-99) Mean Corpuscular Hemoglobin 29.5 PG (27.0-31.0) Mean Corpuscular Hemoglobin Concent 33.5 G/DL (32.0-36.0) Red Cell Distribution Width 13.0 % (11.6-14.8) Platelet Count 257 K/UL (150-450) Mean Platelet Volume 6.1 FL (6.5-10.1) L Neutrophils (%) (Auto) % (45.0-75.0) Lymphocytes (%) (Auto) % (20.0-45.0) Monocytes (%) (Auto) % (1.0-10.0) Eosinophils (%) (Auto) % (0.0-3.0) Basophils (%) (Auto) % (0.0-2.0) Differential Total Cells Counted 100 Neutrophils % (Manual) 58 % (45-75) Lymphocytes % (Manual) 26 % (20-45) Monocytes % (Manual) 8 % (1-10) Eosinophils % (Manual) 8 % (0-3) H Basophils % (Manual) 0 % (0-2) Band Neutrophils 0 % (0-8) Platelet Estimate Adequate Platelet Morphology Normal Hypochromasia 1+ Erythrocyte Sedimentation Rate 35 MM/HR (0-20) H Reticulocyte Count 0.8 % (0.0-2.0) Prothrombin Time 10.4 SEC (9.30-11.50) Prothromb Time International Ratio 1.0 (0.9-1.1) Activated Partial Thromboplast Time 35 SEC (23-33) H Iron Level 50 ug/dL (59-158) L Total Iron Binding Capacity 258 ug/dL (250-400) Percent Iron Saturation 19 % (15-50) Unsaturated Iron Binding 208 ug/dL (112-346) Lactate Dehydrogenase 209 U/L (135-230) Carcinoembryonic Antigen 5.4 ng/mL H CA 15-3 Antigen Pending CA 19-9 Antigen 0.600 U/mL (< 37) CA 27.29 Pending CA 125 Antigen Pending Vitamin B12 Level 261 pg/mL (211-946) Folate Pending Current Medications Medications (Trade) Dose Ordered Sig/Gabby Route PRN Reason Start Time Stop Time Status Last Admin Dose Admin Acetaminophen (Tylenol) 650 mg Q4H PRN ORAL fever 01/31/17 23:15 03/02/17 23:14 Albuterol/ Ipratropium 3 ml 3 ml Q4H PRN HHN Shortness of Breath 01/31/17 23:15 02/05/17 23:14 Aspirin (ASA) 81 mg DAILY ORAL 02/01/17 09:00 03/03/17 08:59 02/02/17 08:30 Cefepime HCl/ Dextrose (Maxipime/D5W) 110 ml @ 220 mls/hr Q24H IV 02/01/17 09:00 02/08/17 08:59 02/02/17 09:47 Dextrose (Dextrose 50%) STAT PRN IV Hypoglycemia 02/01/17 17:30 03/03/17 17:29 Dextrose STAT PRN IV Hypoglycemia 01/31/17 23:15 03/02/17 23:14 Duloxetine HCl (Cymbalta) 30 mg DAILY ORAL 02/01/17 09:00 03/03/17 08:59 02/02/17 08:30 Gabapentin (Neurontin) 400 mg THREE TIMES A DAY ORAL 02/01/17 09:00 03/03/17 08:59 02/02/17 12:57 Heparin Sodium (Porcine) (Heparin 5000 units/ml) 5,000 units EVERY 12 HOURS SUBQ 02/01/17 09:00 03/03/17 08:59 02/02/17 08:34 Insulin Aspart (NovoLOG) BEFORE MEALS AND HS SUBQ 02/01/17 21:00 03/03/17 20:59 02/02/17 12:18 Levetiracetam (Keppra) 500 mg EVERY 12 HOURS ORAL 02/01/17 09:00 03/03/17 08:59 02/02/17 08:30 Metronidazole (Flagyl) 100 ml @ 100 mls/hr Q8HR IVPB 02/01/17 15:00 02/08/17 14:59 02/02/17 14:38 Morphine Sulfate (Morphine Sulfate) 2 mg Q4H PRN IVP Moderate Pain (Pain Scale 4-6) 01/31/17 23:15 02/07/17 23:14 02/02/17 03:42 Nitroglycerin (Ntg) 0.4 mg Every 5 Minutes PRN SL Prn Chest Pain 01/31/17 23:15 03/02/17 23:14 Ondansetron HCl (Zofran) 4 mg Q6H PRN IVP Nausea & Vomiting 01/31/17 23:15 03/02/17 23:14 Polyethylene Glycol (Miralax) 17 gm DAILYPRN PRN ORAL Constipation 01/31/17 23:15 03/02/17 23:14 Tamsulosin HCl (Flomax) 0.4 mg Q12HR@0900,2100 ORAL 02/02/17 21:00 03/04/17 20:59 Temazepam (Restoril) 15 mg HSPRN PRN ORAL Insomnia 01/31/17 23:15 02/07/17 23:14 02/01/17 01:02 Terazosin HCl (Hytrin) 5 mg DAILY ORAL 02/01/17 09:00 03/03/17 08:59 02/02/17 08:34 BARBARA ARAUJO M.D. Feb 02, 2017 16:46
[2017-02-02] MEDS ORDERED: D5W 275ml ONE (17:12)
[2017-02-02] MEDS ORDERED: Tubing IV Secondary IV ONE (17:12)
--- NOTE | 2017-02-02 17:58 | Pulmonology Progress Note ---
Assessment/Plan Problems: (1) Abdominal pain (2) UTI (urinary tract infection) (3) Lymphadenopathy (4) History of CVA (cerebrovascular accident) (5) HTN (hypertension) (6) Seizure disorder Assessment/Plan ct guided biopsy done f/u pathology f/u labs add flomax for BPH Subjective ROS Limited/Unobtainable: No Constitutional: Reports: no symptoms HEENT: Repors: no symptoms Respiratory: Reports: no symptoms Allergies: Coded Allergies: No Known Allergies (Unverified , 02/13/13) Objective Last 24 Hour Vital Signs Date Time Temp Pulse Resp B/P Pulse Ox O2 Delivery O2 Flow Rate FiO2 02/02/17 16:18 98.1 74 18 141/69 Room Air 02/02/17 11:40 87 15 168/90 100 Room Air 02/02/17 11:35 84 13 162/83 99 Room Air 02/02/17 11:30 83 12 177/96 99 Room Air 02/02/17 11:25 86 12 174/93 99 Room Air 02/02/17 11:20 84 14 176/89 99 Room Air 02/02/17 11:15 70 18 152/85 99 Room Air 02/02/17 11:10 85 12 142/90 99 Room Air 02/02/17 11:05 84 14 148/87 99 Room Air 02/02/17 10:31 76 12 02/02/17 08:00 98.7 78 18 174/96 98 Room Air 02/02/17 07:35 78 16 Room Air 21 02/02/17 04:14 98.1 78 20 146/79 98 Room Air 02/02/17 04:12 98.1 02/01/17 23:41 98.2 71 20 141/75 99 Room Air 02/01/17 20:03 97.7 68 20 135/87 97 Room Air 02/01/17 19:15 72 16 Room Air 21 Intake and Output 02/01/17 02/02/17 19:00 07:00 Intake Total 1630 ml 200 ml Output Total 1500 ml Balance 130 ml 200 ml Intake Oral 720 ml IV Total 910 ml 200 ml Output Urine Total 1500 ml # Voids 5 # Bowel Movements 2 General Appearance: WD/WN HEENT: normocephalic Respiratory/Chest: chest wall non-tender, lungs clear, normal breath sounds Cardiovascular: normal peripheral pulses, normal rate Abdomen: normal bowel sounds, no organomegaly Genitourinary: normal external genitalia Extremities: no cyanosis Microbiology Date/Time Source Procedure Growth Status 01/31/17 19:19 Nasal Nares MRSA Culture - Final NO METHICILLIN RESISTANT STAPH AUREUS... Complete 02/01/17 15:18 Indwelling Cath Urine Culture - Preliminary Resulted 01/31/17 19:19 Urine,Clean Catch Urine Culture - Preliminary Gram Negative Bacillus 1 Resulted 01/31/17 19:19 Rectum VRE Culture - Final NO VANCOMYCIN RESISTANT ENTEROCOCCUS ... Complete Laboratory Tests 02/02/17 00:30: Urine Color Pale yellow, Urine Appearance Slightly cloudy, Urine pH 5, Urine Specific [place] 1.010, Urine Protein Negative, Urine Glucose (UA) 1+H, Urine Ketones Negative, Urine Occult Blood 1+H, Urine Nitrite Negative, Urine Bilirubin Negative, Urine Urobilinogen Normal, Urine Leukocyte Esterase 3+H, Urine RBC 0-2H, Urine WBC TntcH, Urine Squamous Epithelial Cells Few, Urine Bacteria Few, Urine Eosinophils None seen 02/02/17 05:15: White Blood Count 5.0, Red Blood Count 3.95L, Hemoglobin 11.6L, Hematocrit 34.7L , Mean Corpuscular Volume 88, Mean Corpuscular Hemoglobin 29.5, Mean Corpuscular Hemoglobin Concent 33.5, Red Cell Distribution Width 13.0, Platelet Count 257, Mean Platelet Volume 6.1L, Neutrophils (%) (Auto) , Lymphocytes (%) ( Auto) , Monocytes (%) (Auto) , Eosinophils (%) (Auto) , Basophils (%) (Auto) , Differential Total Cells Counted 100, Neutrophils % (Manual) 58, Lymphocytes % ( Manual) 26, Monocytes % (Manual) 8, Eosinophils % (Manual) 8H, Basophils % ( Manual) 0, Band Neutrophils 0, Platelet Estimate Adequate, Platelet Morphology Normal, Hypochromasia 1+, Erythrocyte Sedimentation Rate 35H, Reticulocyte Count 0.8, Prothrombin Time 10.4, Prothromb Time International Ratio 1.0, Activated Partial Thromboplast Time 35H, Iron Level 50L, Total Iron Binding Capacity 258, Percent Iron Saturation 19, Unsaturated Iron Binding 208, Lactate Dehydrogenase 209, Carcinoembryonic Antigen 5.4H, CA 15-3 Antigen [Pending], CA 19-9 Antigen 0.600, CA 27.29 [Pending], CA 125 Antigen [Pending], Vitamin B12 Level 261, Folate [Pending] Current Medications Medications (Trade) Dose Ordered Sig/Gabby Route PRN Reason Start Time Stop Time Status Last Admin Dose Admin Acetaminophen (Tylenol) 650 mg Q4H PRN ORAL fever 01/31/17 23:15 03/02/17 23:14 Albuterol/ Ipratropium 3 ml 3 ml Q4H PRN HHN Shortness of Breath 01/31/17 23:15 02/05/17 23:14 Aspirin (ASA) 81 mg DAILY ORAL 02/01/17 09:00 03/03/17 08:59 02/02/17 08:30 Cefepime HCl/ Dextrose (Maxipime/D5W) 110 ml @ 220 mls/hr Q24H IV 02/01/17 09:00 02/08/17 08:59 02/02/17 09:47 Dextrose (Dextrose 50%) STAT PRN IV Hypoglycemia 02/01/17 17:30 03/03/17 17:29 Duloxetine HCl (Cymbalta) 30 mg DAILY ORAL 02/01/17 09:00 03/03/17 08:59 02/02/17 08:30 Gabapentin (Neurontin) 400 mg THREE TIMES A DAY ORAL 02/01/17 09:00 03/03/17 08:59 02/02/17 17:11 Heparin Sodium (Porcine) (Heparin 5000 units/ml) 5,000 units EVERY 12 HOURS SUBQ 02/01/17 09:00 03/03/17 08:59 02/02/17 08:34 Insulin Aspart (NovoLOG) BEFORE MEALS AND HS SUBQ 02/01/17 21:00 03/03/17 20:59 02/02/17 17:13 Levetiracetam (Keppra) 500 mg EVERY 12 HOURS ORAL 02/01/17 09:00 03/03/17 08:59 02/02/17 08:30 Metronidazole (Flagyl) 100 ml @ 100 mls/hr Q8HR IVPB 02/01/17 15:00 02/08/17 14:59 02/02/17 14:38 Morphine Sulfate (Morphine Sulfate) 2 mg Q4H PRN IVP Moderate Pain (Pain Scale 4-6) 01/31/17 23:15 02/07/17 23:14 02/02/17 03:42 Nitroglycerin 0.4 mg 0.4 mg Every 5 Minutes PRN SL Prn Chest Pain 01/31/17 23:15 03/02/17 23:14 Ondansetron HCl (Zofran) 4 mg Q6H PRN IVP Nausea & Vomiting 01/31/17 23:15 03/02/17 23:14 Polyethylene Glycol (Miralax) 17 gm DAILYPRN PRN ORAL Constipation 01/31/17 23:15 03/02/17 23:14 Tamsulosin HCl (Flomax) 0.4 mg QHS ORAL 02/02/17 21:00 03/04/17 20:59 Temazepam (Restoril) 15 mg HSPRN PRN ORAL Insomnia 01/31/17 23:15 02/07/17 23:14 02/01/17 01:02 Terazosin HCl (Hytrin) 5 mg DAILY ORAL 02/01/17 09:00 03/03/17 08:59 02/02/17 08:34 FORTINO POLO Feb 02, 2017 17:58
--- NOTE | 2017-02-02 19:18 | General Progress Note ---
Assessment/Plan Assessment/Plan ASSESSMENT AND PLAN: 1. Retroperitoneal lymphadenopathy. We will obtain a CT-guided biopsy concerning for lymphoma. --> path report pending 2. Anemia secondary to chronic disease versus malignancy. 3. History of urinary tract infection, again, treated with antibiotics. 4. Abdominal pain, left sided. --> possible diverticulosis 5. Seizure disorder. 6. Discussed with Interventional Radiology potentially to obtain biopsy on 02/02. 7. BPH --> Flomax Subjective Constitutional: Reports: no symptoms HEENT: Reports: no symptoms Cardiovascular: Reports: no symptoms Respiratory: Reports: no symptoms Gastrointestinal/Abdominal: Reports: no symptoms Genitourinary: Reports: no symptoms Neurologic/Psychiatric: Reports: no symptoms Endocrine: Reports: no symptoms Allergies: Coded Allergies: No Known Allergies (Unverified , 02/13/13) Subjective s/p biopsy Objective Last 24 Hour Vital Signs Date Time Temp Pulse Resp B/P Pulse Ox O2 Delivery O2 Flow Rate FiO2 02/02/17 16:18 98.1 74 18 141/69 Room Air 02/02/17 11:40 87 15 168/90 100 Room Air 02/02/17 11:35 84 13 162/83 99 Room Air 02/02/17 11:30 83 12 177/96 99 Room Air 02/02/17 11:25 86 12 174/93 99 Room Air 02/02/17 11:20 84 14 176/89 99 Room Air 02/02/17 11:15 70 18 152/85 99 Room Air 02/02/17 11:10 85 12 142/90 99 Room Air 02/02/17 11:05 84 14 148/87 99 Room Air 02/02/17 10:31 76 12 02/02/17 08:00 98.7 78 18 174/96 98 Room Air 02/02/17 07:35 78 16 Room Air 21 02/02/17 04:14 98.1 78 20 146/79 98 Room Air 02/02/17 04:12 98.1 02/01/17 23:41 98.2 71 20 141/75 99 Room Air 02/01/17 20:03 97.7 68 20 135/87 97 Room Air Intake and Output 02/01/17 02/02/17 19:00 07:00 Intake Total 1630 ml 200 ml Output Total 1500 ml Balance 130 ml 200 ml Intake Oral 720 ml IV Total 910 ml 200 ml Output Urine Total 1500 ml # Voids 5 # Bowel Movements 2 Laboratory Tests 02/02/17 00:30: Urine Color Pale yellow, Urine Appearance Slightly cloudy, Urine pH 5, Urine Specific [place] 1.010, Urine Protein Negative, Urine Glucose (UA) 1+H, Urine Ketones Negative, Urine Occult Blood 1+H, Urine Nitrite Negative, Urine Bilirubin Negative, Urine Urobilinogen Normal, Urine Leukocyte Esterase 3+H, Urine RBC 0-2H, Urine WBC TntcH, Urine Squamous Epithelial Cells Few, Urine Bacteria Few, Urine Eosinophils None seen 02/02/17 05:15: White Blood Count 5.0, Red Blood Count 3.95L, Hemoglobin 11.6L, Hematocrit 34.7L , Mean Corpuscular Volume 88, Mean Corpuscular Hemoglobin 29.5, Mean Corpuscular Hemoglobin Concent 33.5, Red Cell Distribution Width 13.0, Platelet Count 257, Mean Platelet Volume 6.1L, Neutrophils (%) (Auto) , Lymphocytes (%) ( Auto) , Monocytes (%) (Auto) , Eosinophils (%) (Auto) , Basophils (%) (Auto) , Differential Total Cells Counted 100, Neutrophils % (Manual) 58, Lymphocytes % ( Manual) 26, Monocytes % (Manual) 8, Eosinophils % (Manual) 8H, Basophils % ( Manual) 0, Band Neutrophils 0, Platelet Estimate Adequate, Platelet Morphology Normal, Hypochromasia 1+, Erythrocyte Sedimentation Rate 35H, Reticulocyte Count 0.8, Prothrombin Time 10.4, Prothromb Time International Ratio 1.0, Activated Partial Thromboplast Time 35H, Iron Level 50L, Total Iron Binding Capacity 258, Percent Iron Saturation 19, Unsaturated Iron Binding 208, Lactate Dehydrogenase 209, Carcinoembryonic Antigen 5.4H, CA 15-3 Antigen [Pending], CA 19-9 Antigen 0.600, CA 27.29 [Pending], CA 125 Antigen [Pending], Vitamin B12 Level 261, Folate [Pending] Height (Feet): 5 Height (Inches): 6.00 Weight (Pounds): 165 General Appearance: no apparent distress EENT: PERRL/EOMI Neck: non-tender Cardiovascular: normal peripheral pulses Respiratory/Chest: chest wall non-tender Abdomen: non tender Edema: no edema noted Pedal (L), no edema noted Pedal (R) 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
[2017-02-02] MEDS: Tamsulosin 0.4mg cap ORAL SCH (21:55)
[2017-02-03 04:25] VITALS: BP 154/74
[2017-02-03] MEDS: Morphine Sulfate 2mg/ml Inj IVP PRN ×2 (04:34→09:28)
[2017-02-03] MEDS: metroNIDAZOLE 500mg 100 ML IVPB SCH ×3 (05:38→21:35)
[2017-02-03] MEDS: NovoLOG Insulin Flexpen SUBQ SCH ×4 (05:44→21:00)
[2017-02-03 07:27] LABS: BASOPHILS % (AUTO) 0.6 % (0.0-2.0); EOSINOPHILS % (AUTO) 5.6 % (0.0-3.0); LYMPHOCYTES % (AUTO) 23.4 % (20.0-45.0); MEAN CORPUSCULAR HEMOGLOBIN 29.1 PG (27.0-31.0); MEAN CORPUSCULAR HGB CONC 33.2 G/DL (32.0-36.0); MEAN CORPUSCULAR VOLUME 88 FL (80-99); MEAN PLATELET VOLUME 5.9 FL (6.5-10.1); MONOCYTES % (AUTO) 8.5 % (1.0-10.0); PLATELET COUNT 233 K/UL (150-450); RED BLOOD COUNT 3.88 M/UL (4.70-6.10); RED CELL DISTRIBUTION WIDTH 12.7 % (11.6-14.8); WHITE BLOOD COUNT 4.7 K/UL (4.8-10.8)
[2017-02-03 07:34] LABS: ALANINE AMINOTRANSFERASE 9 U/L (3-41); ANION GAP 12 (5-15); ASPARTATE AMINO TRANSFERASE 23 U/L (5-40); CALCIUM 9.2 mg/dL (8.6-10.2); CARBON DIOXIDE 22 mEQ/L (20-30); CHLORIDE 105 mEQ/L (98-107); CREATININE 0.9 mg/dL (0.7-1.2); GLOMERULAR FILTRATION RATE > 60 mL/min (>60); HEMOLYSIS 1; MAGNESIUM 1.4 mg/dL (1.7-2.5); PHOSPHORUS 2.9 mg/dL (2.5-4.8); SODIUM 139 mEQ/L (135-145); TOTAL PROTEIN 6.9 g/dL (6.6-8.7)
[2017-02-03 08:02] VITALS: BP 123/85
[2017-02-03 08:12] LABS: CA 125 41.2 U/mL (Not Estab.); CA15-3 13.6 U/mL (0.0-25.0)
[2017-02-03] MEDS: DULoxetine 30mg cap ORAL SCH (08:18)
[2017-02-03] MEDS: Aspirin Baby 81mg ORAL SCH (08:20)
[2017-02-03] MEDS: Heparin 5000 units/ml inj SUBQ SCH ×2 (08:20→20:26)
[2017-02-03] MEDS: Cefepime HCl 2 GM in D5W 110 ML IV SCH ×2 (08:21→20:15)
--- NOTE | 2017-02-03 10:27 | Infectious Diseases Prog Note ---
Assessment/Plan Assessment/Plan ASSESSMENT: The patient is a 66-year-old male with Leukocytosis, SP Left lower quadrant abdominal pain resolved Possible diverticulitis UTI : Ucx :PSA , pt has dysuria UCX repeat : low count strp and Mixed GNR Retroperineal LAP , SP Bx 02/02 History of cellulitis of left upper extremity. 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 History of EGD and colonoscopy : gastritis and hemorrhoids in July 2016 Mild hematuria. Acute renal insufficiency, improving. PLAN: cont pt on cefepime and Flagyl d# 3 / 7 Monitor CBC. Monitor BMP. HIV test GI evaluation for abdominal pain retroperitoneal biopsy :Path pending Subjective Allergies: Coded Allergies: No Known Allergies (Unverified , 02/13/13) Subjective afebrile Objective Vital Signs Last 24 Hour Vital Signs Date Time Temp Pulse Resp B/P Pulse Ox O2 Delivery O2 Flow Rate FiO2 02/03/17 09:58 98.2 02/03/17 08:10 64 16 Room Air 02/03/17 08:02 98.2 74 18 123/85 Room Air 02/03/17 04:25 97.5 65 20 154/74 98 Room Air 02/02/17 23:54 98.1 71 20 131/68 98 Room Air 02/02/17 19:45 67 16 Room Air 21 02/02/17 19:39 97.7 75 20 167/102 99 Room Air 02/02/17 16:18 98.1 74 18 141/69 Room Air 02/02/17 11:40 87 15 168/90 100 Room Air 02/02/17 11:35 84 13 162/83 99 Room Air 02/02/17 11:30 83 12 177/96 99 Room Air 02/02/17 11:25 86 12 174/93 99 Room Air 02/02/17 11:20 84 14 176/89 99 Room Air 02/02/17 11:15 70 18 152/85 99 Room Air 02/02/17 11:10 85 12 142/90 99 Room Air 02/02/17 11:05 84 14 148/87 99 Room Air 02/02/17 10:31 76 12 Height (Feet): 5 Height (Inches): 6.00 Weight (Pounds): 165 HEENT: mucous membranes moist Respiratory/Chest: normal breath sounds Cardiovascular: regularly irregular Abdomen: no organomegaly Microbiology Date/Time Source Procedure Growth Status 01/31/17 19:19 Nasal Nares MRSA Culture - Final NO METHICILLIN RESISTANT STAPH AUREUS... Complete 02/02/17 00:30 Urine,Clean Catch Urine Culture - Preliminary Mixed Urogenital Contaminants Resulted 02/01/17 15:18 Indwelling Cath Urine Culture - Preliminary Streptococcus Species Resulted 01/31/17 19:19 Urine,Clean Catch Urine Culture - Final Pseudomonas Aeruginosa Complete 01/31/17 19:19 Rectum VRE Culture - Final NO VANCOMYCIN RESISTANT ENTEROCOCCUS ... Complete Laboratory Tests Test 02/03/17 03:40 02/03/17 05:15 Urine Osmolality Pending Urine Random Sodium 85 mmol/L Urine Random Chloride 97 mmol/L Urine Potassium Timed 32 mmol/L White Blood Count 4.7 K/UL (4.8-10.8) L Red Blood Count 3.88 M/UL (4.70-6.10) L Hemoglobin 11.3 G/DL (14.2-18.0) L Hematocrit 34.0 % (42.0-52.0) L Mean Corpuscular Volume 88 FL (80-99) Mean Corpuscular Hemoglobin 29.1 PG (27.0-31.0) Mean Corpuscular Hemoglobin Concent 33.2 G/DL (32.0-36.0) Red Cell Distribution Width 12.7 % (11.6-14.8) Platelet Count 233 K/UL (150-450) Mean Platelet Volume 5.9 FL (6.5-10.1) L Neutrophils (%) (Auto) 62.0 % (45.0-75.0) Lymphocytes (%) (Auto) 23.4 % (20.0-45.0) Monocytes (%) (Auto) 8.5 % (1.0-10.0) Eosinophils (%) (Auto) 5.6 % (0.0-3.0) H Basophils (%) (Auto) 0.6 % (0.0-2.0) Sodium Level 139 mEQ/L (135-145) Potassium Level 4.0 mEQ/L (3.4-4.9) Chloride Level 105 mEQ/L (98-107) Carbon Dioxide Level 22 mEQ/L (20-30) Anion Gap 12 (5-15) Blood Urea Nitrogen 19 mg/dL (7-23) Creatinine 0.9 mg/dL (0.7-1.2) Estimat Glomerular Filtration Rate > 60 mL/min (>60) Glucose Level 150 mg/dL (74-106) H Calcium Level 9.2 mg/dL (8.6-10.2) Phosphorus Level 2.9 mg/dL (2.5-4.8) Magnesium Level 1.4 mg/dL (1.7-2.5) L Total Bilirubin 0.2 mg/dL (0.0-1.2) Aspartate Amino Transf (AST/SGOT) 23 U/L (5-40) Alanine Aminotransferase (ALT/SGPT) 9 U/L (3-41) Alkaline Phosphatase 105 U/L (40-129) Total Protein 6.9 g/dL (6.6-8.7) Albumin 3.5 g/dL (3.5-5.2) Globulin 3.4 g/dL Albumin/Globulin Ratio 1.0 (1.0-2.7) Current Medications Medications (Trade) Dose Ordered Sig/Gabby Route PRN Reason Start Time Stop Time Status Last Admin Dose Admin Acetaminophen (Tylenol) 650 mg Q4H PRN ORAL fever 01/31/17 23:15 03/02/17 23:14 Albuterol/ Ipratropium 3 ml 3 ml Q4H PRN HHN Shortness of Breath 01/31/17 23:15 02/05/17 23:14 Aspirin (ASA) 81 mg DAILY ORAL 02/01/17 09:00 03/03/17 08:59 02/03/17 08:20 Cefepime HCl/ Dextrose (Maxipime/D5W) 110 ml @ 220 mls/hr Q24H IV 02/01/17 09:00 02/08/17 08:59 02/03/17 08:21 Dextrose (Dextrose 50%) STAT PRN IV Hypoglycemia 02/01/17 17:30 03/03/17 17:29 Duloxetine HCl (Cymbalta) 30 mg DAILY ORAL 02/01/17 09:00 03/03/17 08:59 02/03/17 08:18 Gabapentin (Neurontin) 400 mg THREE TIMES A DAY ORAL 02/01/17 09:00 03/03/17 08:59 02/03/17 08:18 Heparin Sodium (Porcine) (Heparin 5000 units/ml) 5,000 units EVERY 12 HOURS SUBQ 02/01/17 09:00 03/03/17 08:59 02/03/17 08:20 Insulin Aspart (NovoLOG) BEFORE MEALS AND HS SUBQ 02/01/17 21:00 03/03/17 20:59 02/03/17 05:44 Levetiracetam (Keppra) 500 mg EVERY 12 HOURS ORAL 02/01/17 09:00 03/03/17 08:59 02/03/17 08:18 Magnesium Sulfate (Magnesium Sulfate 1gm/100ml) 100 ml @ 100 mls/hr Q1H IVPB 02/03/17 09:30 02/03/17 11:29 02/03/17 09:29 Metronidazole (Flagyl) 100 ml @ 100 mls/hr Q8HR IVPB 02/01/17 15:00 02/08/17 14:59 02/03/17 05:38 Morphine Sulfate (Morphine Sulfate) 2 mg Q4H PRN IVP Moderate Pain (Pain Scale 4-6) 01/31/17 23:15 02/07/17 23:14 02/03/17 09:28 Nitroglycerin 0.4 mg 0.4 mg Every 5 Minutes PRN SL Prn Chest Pain 01/31/17 23:15 03/02/17 23:14 Ondansetron HCl (Zofran) 4 mg Q6H PRN IVP Nausea & Vomiting 01/31/17 23:15 03/02/17 23:14 Polyethylene Glycol (Miralax) 17 gm DAILYPRN PRN ORAL Constipation 01/31/17 23:15 03/02/17 23:14 Tamsulosin HCl 0.4 mg 0.4 mg QHS ORAL 02/02/17 21:00 03/04/17 20:59 02/02/17 21:55 Temazepam (Restoril) 15 mg HSPRN PRN ORAL Insomnia 01/31/17 23:15 02/07/17 23:14 02/01/17 01:02 Terazosin HCl (Hytrin) 5 mg DAILY ORAL 02/01/17 09:00 03/03/17 08:59 02/03/17 08:18 BARBARA ARAUJO M.D. Feb 03, 2017 10:27
[2017-02-03 11:46] VITALS: BP 118/74
[2017-02-03] MEDS: HYDROmorphone 1mg/ml Carpuject IVP PRN ×2 (14:09→23:57)
--- NOTE | 2017-02-03 14:32 | GI Progress Note ---
Assessment/Plan Problems: (1) care home resident ICD Codes: Z59.3 - Problems related to living in residential institution SNOMED: 000525654 (2) Anemia ICD Codes: D64.9 - Anemia, unspecified SNOMED: 980795957 (3) Abdominal pain ICD Codes: R10.9 - Unspecified abdominal pain SNOMED: 42550536 Status: stable Status Narrative Discussed with Dr. Martin. Assessment/Plan s/p ERCP with stent removal for bile leak 2015 hx hepatitis panel >> negative s/p EGD and colon with findings of gastritis, hemorrhoids AP CT reviewed >> lymphadenopathy, enteritis, see full report. symptomatic treatment fu CT guided bx ADA diet prn blood transfusions zofran prn pain mgmt ppi fu labs The patient was seen and examined at bedside and all new and available data was reviewed in the patients chart. I agree with the above findings, impression and plan. (Patient seen earlier today. Signature stamp does not reflect patient encounter time.). -Vignesh Martin MD Subjective Subjective abdominal pain resolved Objective Last 24 Hour Vital Signs Date Time Temp Pulse Resp B/P Pulse Ox O2 Delivery O2 Flow Rate FiO2 02/03/17 11:46 97.7 64 20 118/74 97 Room Air 02/03/17 09:58 98.2 02/03/17 08:10 64 16 Room Air 02/03/17 08:02 98.2 74 18 123/85 Room Air 02/03/17 04:25 97.5 65 20 154/74 98 Room Air 02/02/17 23:54 98.1 71 20 131/68 98 Room Air 02/02/17 19:45 67 16 Room Air 02/02/17 19:39 97.7 75 20 167/102 99 Room Air 02/02/17 16:18 98.1 74 18 141/69 Room Air Intake and Output 02/02/17 02/03/17 19:00 07:00 Intake Total 220 ml 200 ml Output Total 800 ml Balance 220 ml -600 ml IV Total 220 ml 200 ml Output Urine Total 800 ml Laboratory Tests Test 02/03/17 03:40 02/03/17 05:15 Urine Osmolality Pending Urine Random Sodium 85 mmol/L Urine Random Chloride 97 mmol/L Urine Potassium Timed 32 mmol/L White Blood Count 4.7 K/UL (4.8-10.8) L Red Blood Count 3.88 M/UL (4.70-6.10) L Hemoglobin 11.3 G/DL (14.2-18.0) L Hematocrit 34.0 % (42.0-52.0) L Mean Corpuscular Volume 88 FL (80-99) Mean Corpuscular Hemoglobin 29.1 PG (27.0-31.0) Mean Corpuscular Hemoglobin Concent 33.2 G/DL (32.0-36.0) Red Cell Distribution Width 12.7 % (11.6-14.8) Platelet Count 233 K/UL (150-450) Mean Platelet Volume 5.9 FL (6.5-10.1) L Neutrophils (%) (Auto) 62.0 % (45.0-75.0) Lymphocytes (%) (Auto) 23.4 % (20.0-45.0) Monocytes (%) (Auto) 8.5 % (1.0-10.0) Eosinophils (%) (Auto) 5.6 % (0.0-3.0) H Basophils (%) (Auto) 0.6 % (0.0-2.0) Sodium Level 139 mEQ/L (135-145) Potassium Level 4.0 mEQ/L (3.4-4.9) Chloride Level 105 mEQ/L (98-107) Carbon Dioxide Level 22 mEQ/L (20-30) Anion Gap 12 (5-15) Blood Urea Nitrogen 19 mg/dL (7-23) Creatinine 0.9 mg/dL (0.7-1.2) Estimat Glomerular Filtration Rate > 60 mL/min (>60) Glucose Level 150 mg/dL (74-106) H Calcium Level 9.2 mg/dL (8.6-10.2) Phosphorus Level 2.9 mg/dL (2.5-4.8) Magnesium Level 1.4 mg/dL (1.7-2.5) L Total Bilirubin 0.2 mg/dL (0.0-1.2) Aspartate Amino Transf (AST/SGOT) 23 U/L (5-40) Alanine Aminotransferase (ALT/SGPT) 9 U/L (3-41) Alkaline Phosphatase 105 U/L (40-129) Total Protein 6.9 g/dL (6.6-8.7) Albumin 3.5 g/dL (3.5-5.2) Globulin 3.4 g/dL Albumin/Globulin Ratio 1.0 (1.0-2.7) Height (Feet): 5 Height (Inches): 6.00 Weight (Pounds): 165 General Appearance: no apparent distress, alert, overweight Cardiovascular: normal rate Respiratory/Chest: normal breath sounds, no respiratory distress Abdominal Exam: normal bowel sounds, non tender, soft Extremities: normal range of motion Olga Green NJuan Antonio Feb 03, 2017 14:32 VIGNESH MARTIN Feb 03, 2017 16:56
[2017-02-03 16:00] VITALS: BP 117/78
[2017-02-03 20:00] VITALS: BP 150/100
[2017-02-03] MEDS: Tamsulosin 0.4mg cap ORAL SCH (20:24)
[2017-02-03] MEDS ORDERED: HydrALAZINE 10mg Tab ORAL PRN (22:00)
--- NOTE | 2017-02-03 22:43 | Pulmonology Progress Note ---
Assessment/Plan Problems: (1) Abdominal pain (2) UTI (urinary tract infection) (3) Lymphadenopathy (4) History of CVA (cerebrovascular accident) (5) HTN (hypertension) (6) Seizure disorder Assessment/Plan ct guided biopsy done f/u pathology f/u labs add flomax for BPH Subjective Allergies: Coded Allergies: No Known Allergies (Unverified , 02/13/13) Objective Last 24 Hour Vital Signs Date Time Temp Pulse Resp B/P Pulse Ox O2 Delivery O2 Flow Rate FiO2 02/03/17 20:26 72 16 Room Air 21 02/03/17 20:00 97.7 59 18 150/100 97 Room Air 02/03/17 16:00 97.0 97 20 117/78 97 Room Air 02/03/17 14:55 97.7 02/03/17 11:46 97.7 64 20 118/74 97 Room Air 02/03/17 09:58 98.2 02/03/17 08:10 64 16 Room Air 21 02/03/17 08:02 98.2 74 18 123/85 Room Air 02/03/17 04:25 97.5 65 20 154/74 98 Room Air 02/02/17 23:54 98.1 71 20 131/68 98 Room Air Intake and Output 02/02/17 02/03/17 19:00 07:00 Intake Total 220 ml 200 ml Output Total 800 ml Balance 220 ml -600 ml IV Total 220 ml 200 ml Output Urine Total 800 ml Microbiology Date/Time Source Procedure Growth Status 02/02/17 00:30 Urine,Clean Catch Urine Culture - Preliminary Mixed Urogenital Contaminants Resulted 02/01/17 15:18 Indwelling Cath Urine Culture - Preliminary Streptococcus Species Resulted Laboratory Tests 02/03/17 03:40: Urine Osmolality [Pending], Urine Random Sodium 85, Urine Random Chloride 97, Urine Potassium Timed 32 02/03/17 05:15: White Blood Count 4.7L, Red Blood Count 3.88L, Hemoglobin 11.3L, Hematocrit 34.0L, Mean Corpuscular Volume 88, Mean Corpuscular Hemoglobin 29.1, Mean Corpuscular Hemoglobin Concent 33.2, Red Cell Distribution Width 12.7, Platelet Count 233, Mean Platelet Volume 5.9L, Neutrophils (%) (Auto) 62.0, Lymphocytes ( %) (Auto) 23.4, Monocytes (%) (Auto) 8.5, Eosinophils (%) (Auto) 5.6H, Basophils (%) (Auto) 0.6, Sodium Level 139, Potassium Level 4.0, Chloride Level 105, Carbon Dioxide Level 22, Anion Gap 12, Blood Urea Nitrogen 19, Creatinine 0.9, Estimat Glomerular Filtration Rate > 60, Glucose Level 150H, Calcium Level 9.2, Phosphorus Level 2.9, Magnesium Level 1.4L, Total Bilirubin 0.2, Aspartate Amino Transf (AST/SGOT) 23, Alanine Aminotransferase (ALT/SGPT) 9, Alkaline Phosphatase 105, Total Protein 6.9, Albumin 3.5, Globulin 3.4, Albumin/Globulin Ratio 1.0 Current Medications Medications (Trade) Dose Ordered Sig/Gabby Route PRN Reason Start Time Stop Time Status Last Admin Dose Admin Acetaminophen (Tylenol) 650 mg Q4H PRN ORAL fever 01/31/17 23:15 03/02/17 23:14 Albuterol/ Ipratropium (DuoNeb 0.5-3(2.5)mg/3ml) 3 ml Q4H PRN HHN Shortness of Breath 01/31/17 23:15 02/05/17 23:14 Amlodipine Besylate (Norvasc) 2.5 mg DAILY ORAL 02/04/17 09:00 03/06/17 08:59 Aspirin (ASA) 81 mg DAILY ORAL 02/01/17 09:00 03/03/17 08:59 02/03/17 08:20 Cefepime HCl/ Dextrose (Maxipime/D5W) 110 ml @ 220 mls/hr Q12HR@0900,2100 IV 02/03/17 21:00 02/10/17 20:59 02/03/17 20:15 Dextrose (Dextrose 50%) STAT PRN IV Hypoglycemia 02/01/17 17:30 03/03/17 17:29 Duloxetine HCl (Cymbalta) 30 mg DAILY ORAL 02/01/17 09:00 03/03/17 08:59 02/03/17 08:18 Gabapentin (Neurontin) 400 mg THREE TIMES A DAY ORAL 02/01/17 09:00 03/03/17 08:59 02/03/17 17:11 Heparin Sodium (Porcine) (Heparin 5000 units/ml) 5,000 units EVERY 12 HOURS SUBQ 02/01/17 09:00 03/03/17 08:59 02/03/17 20:26 Hydralazine HCl (Apresoline) 10 mg Q6H PRN ORAL sbp above 160 02/03/17 22:00 03/05/17 21:59 Hydromorphone HCl 1 mg 1 mg Q4H PRN IVP For Pain 4-10 02/03/17 11:30 02/10/17 11:29 02/03/17 14:09 Insulin Aspart (NovoLOG) BEFORE MEALS AND HS SUBQ 02/01/17 21:00 03/03/17 20:59 02/03/17 21:00 Levetiracetam (Keppra) 500 mg EVERY 12 HOURS ORAL 02/01/17 09:00 03/03/17 08:59 02/03/17 20:24 Metronidazole (Flagyl) 100 ml @ 100 mls/hr Q8HR IVPB 02/01/17 15:00 02/08/17 14:59 02/03/17 21:35 Nitroglycerin 0.4 mg 0.4 mg Every 5 Minutes PRN SL Prn Chest Pain 01/31/17 23:15 03/02/17 23:14 Ondansetron HCl (Zofran) 4 mg Q6H PRN IVP Nausea & Vomiting 01/31/17 23:15 03/02/17 23:14 Polyethylene Glycol (Miralax) 17 gm DAILYPRN PRN ORAL Constipation 01/31/17 23:15 03/02/17 23:14 Tamsulosin HCl (Flomax) 0.4 mg QHS ORAL 02/02/17 21:00 03/04/17 20:59 02/03/17 20:24 Temazepam (Restoril) 15 mg HSPRN PRN ORAL Insomnia 01/31/17 23:15 02/07/17 23:14 02/01/17 01:02 Terazosin HCl (Hytrin) 5 mg DAILY ORAL 02/01/17 09:00 03/03/17 08:59 02/03/17 08:18 FORTINO POLO Feb 03, 2017 22:43
--- NOTE | 2017-02-03 23:24 | General Progress Note ---
Assessment/Plan Assessment/Plan ASSESSMENT AND PLAN: 1. Retroperitoneal lymphadenopathy. --> CT-guided biopsy concerning for lymphoma completed --> path report pending 2. Anemia secondary to chronic disease versus malignancy. 3. History of urinary tract infection, again, treated with antibiotics. 4. Abdominal pain, left sided. --> possible diverticulosis 5. Seizure disorder. 6. Discussed with Interventional Radiology potentially to obtain biopsy on 02/02. 7. BPH --> Flomax Subjective Constitutional: Denies: chills, diaphoresis, fever, malaise, no symptoms, other , weakness HEENT: Denies: blurred vision, double vision, ear discharge, ear pain, eye pain , mouth pain, mouth swelling, no symptoms, nose congestion, nose pain, other, tearing, throat pain, throat swelling Cardiovascular: Denies: chest pain, edema, irregular heart rate, lightheadedness, no symptoms, other, palpitations, syncope Respiratory: Denies: SOB at rest, SOB with excertion, cough, no symptoms, orthopnea, other, shortness of breath, sputum, stridor, wheezing Gastrointestinal/Abdominal: Denies: abdomen distended, abdominal pain, black stools, blood in stool, constipated, diarrhea, difficulty swallowing, nausea, no symptoms, other, poor appetite, poor fluid intake, rectal bleeding, tarry stools, vomiting Neurologic/Psychiatric: Denies: anxiety, depressed, emotional problems, headache, no symptoms, numbness, other, paresthesia, pre-existing deficit, seizure, tingling, tremors, weakness Allergies: Coded Allergies: No Known Allergies (Unverified , 02/13/13) Subjective s/p biopsy, report pending Objective Last 24 Hour Vital Signs Date Time Temp Pulse Resp B/P Pulse Ox O2 Delivery O2 Flow Rate FiO2 02/03/17 20:26 72 16 Room Air 21 02/03/17 20:00 97.7 59 18 150/100 97 Room Air 02/03/17 16:00 97.0 97 20 117/78 97 Room Air 02/03/17 14:55 97.7 02/03/17 11:46 97.7 64 20 118/74 97 Room Air 02/03/17 09:58 98.2 02/03/17 08:10 64 16 Room Air 21 02/03/17 08:02 98.2 74 18 123/85 Room Air 02/03/17 04:25 97.5 65 20 154/74 98 Room Air 02/02/17 23:54 98.1 71 20 131/68 98 Room Air Intake and Output 02/02/17 02/03/17 19:00 07:00 Intake Total 220 ml 200 ml Output Total 800 ml Balance 220 ml -600 ml IV Total 220 ml 200 ml Output Urine Total 800 ml Laboratory Tests 02/03/17 03:40: Urine Osmolality [Pending], Urine Random Sodium 85, Urine Random Chloride 97, Urine Potassium Timed 32 02/03/17 05:15: White Blood Count 4.7L, Red Blood Count 3.88L, Hemoglobin 11.3L, Hematocrit 34.0L, Mean Corpuscular Volume 88, Mean Corpuscular Hemoglobin 29.1, Mean Corpuscular Hemoglobin Concent 33.2, Red Cell Distribution Width 12.7, Platelet Count 233, Mean Platelet Volume 5.9L, Neutrophils (%) (Auto) 62.0, Lymphocytes ( %) (Auto) 23.4, Monocytes (%) (Auto) 8.5, Eosinophils (%) (Auto) 5.6H, Basophils (%) (Auto) 0.6, Sodium Level 139, Potassium Level 4.0, Chloride Level 105, Carbon Dioxide Level 22, Anion Gap 12, Blood Urea Nitrogen 19, Creatinine 0.9, Estimat Glomerular Filtration Rate > 60, Glucose Level 150H, Calcium Level 9.2, Phosphorus Level 2.9, Magnesium Level 1.4L, Total Bilirubin 0.2, Aspartate Amino Transf (AST/SGOT) 23, Alanine Aminotransferase (ALT/SGPT) 9, Alkaline Phosphatase 105, Total Protein 6.9, Albumin 3.5, Globulin 3.4, Albumin/Globulin Ratio 1.0 Height (Feet): 5 Height (Inches): 6.00 Weight (Pounds): 165 General Appearance: no apparent distress EENT: TMs normal Neck: supple Cardiovascular: regular rhythm Respiratory/Chest: lungs clear Extremities: non-tender Edema: 1+ Leg (L), 1+ Leg (R), no edema noted Pedal (L) Edema: mild edema Neurologic: alert Skin: warm/dry Benjy Godwin Feb 03, 2017 23:24
[2017-02-04] VITALS: BP 150/50
[2017-02-04 04:00] VITALS: BP 127/80
[2017-02-04] MEDS: metroNIDAZOLE 500mg 100 ML IVPB SCH (05:05)
[2017-02-04] MEDS: NovoLOG Insulin Flexpen SUBQ SCH ×4 (06:01→20:30)
[2017-02-04 07:22] LABS: BASOPHILS % (AUTO) 0.4 % (0.0-2.0); EOSINOPHILS % (AUTO) 4.5 % (0.0-3.0); LYMPHOCYTES % (AUTO) 25.3 % (20.0-45.0); MEAN CORPUSCULAR HEMOGLOBIN 29.8 PG (27.0-31.0); MEAN CORPUSCULAR HGB CONC 33.7 G/DL (32.0-36.0); MEAN CORPUSCULAR VOLUME 88 FL (80-99); MEAN PLATELET VOLUME 6.4 FL (6.5-10.1); MONOCYTES % (AUTO) 9.3 % (1.0-10.0); NEUTROPHILS % (AUTO) 60.4 % (45.0-75.0); PLATELET COUNT 243 K/UL (150-450); RED BLOOD COUNT 3.95 M/UL (4.70-6.10); RED CELL DISTRIBUTION WIDTH 12.7 % (11.6-14.8); WHITE BLOOD COUNT 5.3 K/UL (4.8-10.8)
[2017-02-04 07:23] LABS: ANION GAP 9 (5-15); CALCIUM 9.4 mg/dL (8.6-10.2); CARBON DIOXIDE 27 mEQ/L (20-30); CHLORIDE 103 mEQ/L (98-107); CREATININE 1.1 mg/dL (0.7-1.2); GLOMERULAR FILTRATION RATE > 60 mL/min (>60); HEMOLYSIS 2; MAGNESIUM 1.8 mg/dL (1.7-2.5); POTASSIUM 4.9 mEQ/L (3.4-4.9); SODIUM 139 mEQ/L (135-145)
[2017-02-04 07:45] VITALS: BP 119/69
--- NOTE | 2017-02-04 08:00 | Pulmonology Progress Note ---
Assessment/Plan Assessment/Plan ASSESSMENT abdominal pain complicated UTI with Pseudomonas and Enterococci retroperitoneal lymphadenopathy r/o lymphoma vs malignant neoplasm s/p CT guided biopsy of retroperitoneal lymph node HTN hx of CVA seizure disorder BPH anemia acute renal failure, POA - resolved ( likely due to dehydration) dehydration hypo Mg elevated CEA PLAN OF CARE MS floor CT A/P with evidence of retroperitoneal lymphadenopathy s/p CT guided biopsy fup with biopsy results pain management, elevated CEA-5.4 Ca 15-3, Ca 27-27, Ca 19-9, Ca- 125 all WNL abx, ID follows urine cx + Pseudomonas, repeated Enterococci, GNB, repeated mixed urogenital contaminants and GNB, ARF present on admission, resolved, likely 2 to dehydration renal US negative monitor renal parameters, lytes, correct e/lytes as needed GI follows hx of EGD and colon with findings of gastritis, hemorrhoids hx of ERCP with stent removal for bile leak symptomatic Rx a/emetic prn GI prophylaxis DVT prophylaxis BS management with SS of insulin, HgA1c at goal seizure precautions, continue Keppra, no seizure activity while in the hospital continue Flomax and Terazosin, monitor for urinary retention anemia w/up with low iron heme/onco follows , per heme - anemia of chronic disease vs anemia of malignancy BP management with CCB, optimize as needed, continue ASA O2 HHN prn , keep sat above 92% case discussed and evaluated by supervising physician Subjective Allergies: Coded Allergies: No Known Allergies (Unverified , 02/13/13) Subjective leucocytosis resolved, afebrile, on RA pulse ox stable c/o abdominal pain, not relieved with current medication regimen Objective Last 24 Hour Vital Signs Date Time Temp Pulse Resp B/P Pulse Ox O2 Delivery O2 Flow Rate FiO2 02/04/17 07:45 98.1 67 20 119/69 98 Room Air 02/04/17 04:00 97.7 73 20 127/80 95 Room Air 02/04/17 00:27 97.9 02/04/17 00:00 97.9 72 20 150/50 Room Air 02/03/17 20:26 72 16 Room Air 21 02/03/17 20:00 97.7 59 18 150/100 97 Room Air 02/03/17 16:00 97.0 97 20 117/78 97 Room Air 02/03/17 11:46 97.7 64 20 118/74 97 Room Air 02/03/17 09:58 98.2 02/03/17 08:10 64 16 Room Air 21 02/03/17 08:02 98.2 74 18 123/85 Room Air Intake and Output 02/03/17 02/04/17 19:00 07:00 Intake Total 660 ml Balance 660 ml Intake Oral 240 ml IV Total 420 ml # Voids 1 # Bowel Movements 3 General Appearance: no acute distress, other - awake, alert, responsive HEENT: normocephalic, atraumatic, anicteric Respiratory/Chest: lungs clear, no respiratory distress, no accessory muscle use Cardiovascular: normal peripheral pulses, normal rate, no gallop/murmur Abdomen: normal bowel sounds - soft, diffused TTP, worse epigastric and LUQ areas , abdomen soft, no rebound, , some guarding Neurologic/Psychiatric: alert, oriented x 3, responsive Musculoskeletal: atrophy - BLE Microbiology Date/Time Source Procedure Growth Status 02/02/17 00:30 Urine,Clean Catch Urine Culture - Preliminary Mixed Urogenital Contaminants Gram Negative Bacillus 1 Resulted 02/01/17 15:18 Indwelling Cath Urine Culture - Preliminary Enterococcus Faecalis Gram Negative Bacillus 1 Resulted Laboratory Tests 02/04/17 04:40: White Blood Count 5.3, Red Blood Count 3.95L, Hemoglobin 11.8L, Hematocrit 34.9L , Mean Corpuscular Volume 88, Mean Corpuscular Hemoglobin 29.8, Mean Corpuscular Hemoglobin Concent 33.7, Red Cell Distribution Width 12.7, Platelet Count 243, Mean Platelet Volume 6.4L, Neutrophils (%) (Auto) 60.4, Lymphocytes ( %) (Auto) 25.3, Monocytes (%) (Auto) 9.3, Eosinophils (%) (Auto) 4.5H, Basophils (%) (Auto) 0.4, Sodium Level 139, Potassium Level 4.9, Chloride Level 103, Carbon Dioxide Level 27, Anion Gap 9, Blood Urea Nitrogen 20, Creatinine 1.1, Estimat Glomerular Filtration Rate > 60, Glucose Level 138H, Calcium Level 9.4, Magnesium Level 1.8, HIV (1&2) Antibody Rapid Negative Current Medications Medications (Trade) Dose Ordered Sig/Gabby Route PRN Reason Start Time Stop Time Status Last Admin Dose Admin Acetaminophen (Tylenol) 650 mg Q4H PRN ORAL fever 01/31/17 23:15 03/02/17 23:14 Albuterol/ Ipratropium (DuoNeb 0.5-3(2.5)mg/3ml) 3 ml Q4H PRN HHN Shortness of Breath 01/31/17 23:15 02/05/17 23:14 Amlodipine Besylate (Norvasc) 2.5 mg DAILY ORAL 02/04/17 09:00 03/06/17 08:59 Aspirin (ASA) 81 mg DAILY ORAL 02/01/17 09:00 03/03/17 08:59 02/03/17 08:20 Cefepime HCl/ Dextrose (Maxipime/D5W) 110 ml @ 220 mls/hr Q12HR@0900,2100 IV 02/03/17 21:00 02/10/17 20:59 02/03/17 20:15 Dextrose (Dextrose 50%) STAT PRN IV Hypoglycemia 02/01/17 17:30 03/03/17 17:29 Duloxetine HCl (Cymbalta) 30 mg DAILY ORAL 02/01/17 09:00 03/03/17 08:59 02/03/17 08:18 Gabapentin (Neurontin) 400 mg THREE TIMES A DAY ORAL 02/01/17 09:00 03/03/17 08:59 02/03/17 17:11 Heparin Sodium (Porcine) (Heparin 5000 units/ml) 5,000 units EVERY 12 HOURS SUBQ 02/01/17 09:00 03/03/17 08:59 02/03/17 20:26 Hydralazine HCl (Apresoline) 10 mg Q6H PRN ORAL sbp above 160 02/03/17 22:00 03/05/17 21:59 Hydromorphone HCl 1 mg 1 mg Q4H PRN IVP For Pain 4-10 02/03/17 11:30 02/10/17 11:29 02/03/17 23:57 Insulin Aspart (NovoLOG) BEFORE MEALS AND HS SUBQ 02/01/17 21:00 03/03/17 20:59 02/04/17 06:01 Levetiracetam (Keppra) 500 mg EVERY 12 HOURS ORAL 02/01/17 09:00 03/03/17 08:59 02/03/17 20:24 Metronidazole (Flagyl) 100 ml @ 100 mls/hr Q8HR IVPB 02/01/17 15:00 02/08/17 14:59 02/04/17 05:05 Nitroglycerin 0.4 mg 0.4 mg Every 5 Minutes PRN SL Prn Chest Pain 01/31/17 23:15 03/02/17 23:14 Ondansetron HCl (Zofran) 4 mg Q6H PRN IVP Nausea & Vomiting 01/31/17 23:15 03/02/17 23:14 Polyethylene Glycol (Miralax) 17 gm DAILYPRN PRN ORAL Constipation 01/31/17 23:15 03/02/17 23:14 02/04/17 05:08 Tamsulosin HCl (Flomax) 0.4 mg QHS ORAL 02/02/17 21:00 03/04/17 20:59 02/03/17 20:24 Temazepam (Restoril) 15 mg HSPRN PRN ORAL Insomnia 01/31/17 23:15 02/07/17 23:14 02/01/17 01:02 Terazosin HCl (Hytrin) 5 mg DAILY ORAL 02/01/17 09:00 03/03/17 08:59 02/03/17 08:18 [facility]Cathy NP Feb 04, 2017 08:00
[2017-02-04] MEDS: HYDROmorphone 1mg/ml Carpuject IVP PRN (08:33)
[2017-02-04] MEDS: Cefepime HCl 2 GM in D5W 110 ML IV SCH ×2 (08:33→20:02)
[2017-02-04] MEDS: Aspirin Baby 81mg ORAL SCH (08:33)
[2017-02-04] MEDS: Heparin 5000 units/ml inj SUBQ SCH ×2 (08:48→20:29)
[2017-02-04] MEDS: DULoxetine 30mg cap ORAL SCH (08:49)
[2017-02-04] MEDS ORDERED: Lactulose 20gm/30ml UDC ORAL ONE (10:30)
[2017-02-04] MEDS ORDERED: HYDROmorphone 2mg tab ORAL PRN ×2 (11:00→16:00)
[2017-02-04 12:00] VITALS: BP 98/66
--- NOTE | 2017-02-04 12:13 | GI Progress Note ---
Assessment/Plan Problems: (1) [facility]entiary resident ICD Codes: Z59.3 - Problems related to living in residential institution SNOMED: 619472294 (2) Anemia ICD Codes: D64.9 - Anemia, unspecified SNOMED: 550444142 (3) Abdominal pain ICD Codes: R10.9 - Unspecified abdominal pain SNOMED: 14269441 Status: stable Status Narrative Discussed with Dr. Martin. Assessment/Plan s/p ERCP with stent removal for bile leak 2015 hx hepatitis panel >> negative s/p EGD and colon with findings of gastritis, hemorrhoids AP CT reviewed >> lymphadenopathy, enteritis, see full report. symptomatic treatment fu CT guided bx ADA diet prn blood transfusions zofran prn pain mgmt ppi fu labs Subjective Subjective abdominal pain 5/10 wants to ambulate Objective Last 24 Hour Vital Signs Date Time Temp Pulse Resp B/P Pulse Ox O2 Delivery O2 Flow Rate FiO2 02/04/17 08:49 67 119/69 02/04/17 07:45 98.1 67 20 119/69 98 Room Air 02/04/17 07:29 86 18 Room Air 21 02/04/17 04:00 97.7 73 20 127/80 95 Room Air 02/04/17 00:27 97.9 02/04/17 00:00 97.9 72 20 150/50 Room Air 02/03/17 20:26 72 16 Room Air 21 02/03/17 20:00 97.7 59 18 150/100 97 Room Air 02/03/17 16:00 97.0 97 20 117/78 97 Room Air Intake and Output 02/03/17 02/04/17 19:00 07:00 Intake Total 660 ml Balance 660 ml Intake Oral 240 ml IV Total 420 ml # Voids 1 # Bowel Movements 3 Laboratory Tests Test 02/04/17 04:40 White Blood Count 5.3 K/UL (4.8-10.8) Red Blood Count 3.95 M/UL (4.70-6.10) L Hemoglobin 11.8 G/DL (14.2-18.0) L Hematocrit 34.9 % (42.0-52.0) L Mean Corpuscular Volume 88 FL (80-99) Mean Corpuscular Hemoglobin 29.8 PG (27.0-31.0) Mean Corpuscular Hemoglobin Concent 33.7 G/DL (32.0-36.0) Red Cell Distribution Width 12.7 % (11.6-14.8) Platelet Count 243 K/UL (150-450) Mean Platelet Volume 6.4 FL (6.5-10.1) L Neutrophils (%) (Auto) 60.4 % (45.0-75.0) Lymphocytes (%) (Auto) 25.3 % (20.0-45.0) Monocytes (%) (Auto) 9.3 % (1.0-10.0) Eosinophils (%) (Auto) 4.5 % (0.0-3.0) H Basophils (%) (Auto) 0.4 % (0.0-2.0) Sodium Level 139 mEQ/L (135-145) Potassium Level 4.9 mEQ/L (3.4-4.9) Chloride Level 103 mEQ/L (98-107) Carbon Dioxide Level 27 mEQ/L (20-30) Anion Gap 9 (5-15) Blood Urea Nitrogen 20 mg/dL (7-23) Creatinine 1.1 mg/dL (0.7-1.2) Estimat Glomerular Filtration Rate > 60 mL/min (>60) Glucose Level 138 mg/dL (74-106) H Calcium Level 9.4 mg/dL (8.6-10.2) Magnesium Level 1.8 mg/dL (1.7-2.5) HIV (1&2) Antibody Rapid Negative (NEGATIVE) Height (Feet): 5 Height (Inches): 6.00 Weight (Pounds): 165 General Appearance: no apparent distress, alert Cardiovascular: normal rate Abdominal Exam: normal bowel sounds, non tender, soft Extremities: normal range of motion Olga Green N.Lucille Feb 04, 2017 12:13
[2017-02-04] MEDS: metroNIDAZOLE 500mg tab ORAL SCH ×2 (14:13→21:58)
[2017-02-04] MEDS ORDERED: DuoNeb 0.5-3(2.5)mg/3ml neb HHN PRN (15:30)
[2017-02-04 16:00] VITALS: BP 108/74
--- NOTE | 2017-02-04 17:03 | General Progress Note ---
Assessment/Plan Assessment/Plan ASSESSMENT AND PLAN: 1. Retroperitoneal lymphadenopathy. --> CT-guided biopsy concerning for lymphoma completed --> path report pending 2. Anemia secondary to chronic disease versus malignancy. 3. History of urinary tract infection, again, treated with antibiotics. 4. Abdominal pain, left sided. --> possible diverticulosis 5. Seizure disorder. 6. Discussed with Interventional Radiology potentially to obtain biopsy on 02/02. 7. BPH --> Flomax Subjective Constitutional: Reports: no symptoms HEENT: Reports: no symptoms Cardiovascular: Reports: no symptoms Respiratory: Reports: no symptoms Gastrointestinal/Abdominal: Reports: abdominal pain Neurologic/Psychiatric: Reports: no symptoms Endocrine: Reports: no symptoms Allergies: Coded Allergies: No Known Allergies (Unverified , 02/13/13) Subjective feels better today, path report still pending Objective Last 24 Hour Vital Signs Date Time Temp Pulse Resp B/P Pulse Ox O2 Delivery O2 Flow Rate FiO2 02/04/17 16:00 98.4 73 20 108/74 96 Room Air 02/04/17 12:00 97.9 83 19 98/66 96 Room Air 02/04/17 08:49 67 119/69 02/04/17 07:45 98.1 67 20 119/69 98 Room Air 02/04/17 07:29 86 18 Room Air 21 02/04/17 04:00 97.7 73 20 127/80 95 Room Air 02/04/17 00:27 97.9 02/04/17 00:00 97.9 72 20 150/50 Room Air 02/03/17 20:26 72 16 Room Air 21 02/03/17 20:00 97.7 59 18 150/100 97 Room Air Intake and Output 02/03/17 02/04/17 19:00 07:00 Intake Total 660 ml Balance 660 ml Intake Oral 240 ml IV Total 420 ml # Voids 1 # Bowel Movements 3 Laboratory Tests 02/04/17 04:40: White Blood Count 5.3, Red Blood Count 3.95L, Hemoglobin 11.8L, Hematocrit 34.9L , Mean Corpuscular Volume 88, Mean Corpuscular Hemoglobin 29.8, Mean Corpuscular Hemoglobin Concent 33.7, Red Cell Distribution Width 12.7, Platelet Count 243, Mean Platelet Volume 6.4L, Neutrophils (%) (Auto) 60.4, Lymphocytes ( %) (Auto) 25.3, Monocytes (%) (Auto) 9.3, Eosinophils (%) (Auto) 4.5H, Basophils (%) (Auto) 0.4, Sodium Level 139, Potassium Level 4.9, Chloride Level 103, Carbon Dioxide Level 27, Anion Gap 9, Blood Urea Nitrogen 20, Creatinine 1.1, Estimat Glomerular Filtration Rate > 60, Glucose Level 138H, Calcium Level 9.4, Magnesium Level 1.8, HIV (1&2) Antibody Rapid Negative 02/04/17 15:00: Stool Occult Blood [Pending] Height (Feet): 5 Height (Inches): 6.00 Weight (Pounds): 165 General Appearance: no apparent distress EENT: PERRL/EOMI Neck: normal alignment Cardiovascular: normal rate Respiratory/Chest: chest wall non-tender Extremities: normal range of motion Edema: no edema noted Pedal (L), no edema noted Pedal (R) 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
[2017-02-04 20:00] VITALS: BP 135/86
[2017-02-04] MEDS: Tamsulosin 0.4mg cap ORAL SCH (20:26)
[2017-02-05] VITALS: BP 129/81
[2017-02-05 04:00] VITALS: BP 133/79
[2017-02-05] MEDS: metroNIDAZOLE 500mg tab ORAL SCH ×3 (04:59→21:04)
[2017-02-05] MEDS: NovoLOG Insulin Flexpen SUBQ SCH ×4 (06:06→20:46)
--- NOTE | 2017-02-05 07:28 | General Progress Note ---
Assessment/Plan Problem List: (1) Anemia ICD Codes: D64.9 - Anemia, unspecified SNOMED: 503962121 (2) Abdominal pain ICD Codes: R10.9 - Unspecified abdominal pain SNOMED: 51335934 (3) History of CVA (cerebrovascular accident) ICD Codes: Z86.73 - Personal history of transient ischemic attack (TIA), and cerebral infarction without residual deficits SNOMED: 811644081 (4) HTN (hypertension) ICD Codes: I10 - Essential (primary) hypertension SNOMED: 84860612 (5) Seizure disorder ICD Codes: G40.909 - Epilepsy, unspecified, not intractable, without status epilepticus SNOMED: 064900737 (6) Lymphadenopathy ICD Codes: R59.1 - Generalized enlarged lymph nodes SNOMED: 43866461 (7) Diabetes ICD Codes: E11.9 - Type 2 diabetes mellitus without complications SNOMED: 80195379 (8) BPH (benign prostatic hyperplasia) ICD Codes: N40.0 - Enlarged prostate without lower urinary tract symptoms SNOMED: 043668371, 268004490 (9) half-way resident ICD Codes: Z59.3 - Problems related to living in residential institution SNOMED: 994309651 Assessment/Plan fu CT guided biopsy results fu oncology fu labs Subjective ROS Limited/Unobtainable: Yes Allergies: Coded Allergies: No Known Allergies (Unverified , 02/13/13) Subjective no event Objective Last 24 Hour Vital Signs Date Time Temp Pulse Resp B/P Pulse Ox O2 Delivery O2 Flow Rate FiO2 02/05/17 04:00 97.7 79 133/79 100 Room Air 02/05/17 00:00 97.9 75 18 129/81 97 Room Air 02/04/17 20:00 98.2 78 20 135/86 95 Room Air 02/04/17 19:50 82 18 Room Air 21 02/04/17 16:00 98.4 73 20 108/74 96 Room Air 02/04/17 12:00 97.9 83 19 98/66 96 Room Air 02/04/17 08:49 67 119/69 02/04/17 07:45 98.1 67 20 119/69 98 Room Air 02/04/17 07:29 86 18 Room Air 21 Intake and Output 02/04/17 02/05/17 19:00 07:00 Intake Total 710 ml Output Total 750 ml Balance 710 ml -750 ml Intake Oral 600 ml IV Total 110 ml Output Urine Total 750 ml # Voids 1 # Bowel Movements 1 Laboratory Tests 02/04/17 15:00: Stool Occult Blood [Pending] Height (Feet): 5 Height (Inches): 6.00 Weight (Pounds): 165 General Appearance: no apparent distress EENT: normal ENT inspection Neck: supple Cardiovascular: normal rate Abdomen: normal bowel sounds, non tender, soft Extremities: non-tender TIM VIVAR Feb 05, 2017 07:28
[2017-02-05 07:55] LABS: BASOPHILS % (AUTO) 0.7 % (0.0-2.0); EOSINOPHILS % (AUTO) 4.4 % (0.0-3.0); MEAN CORPUSCULAR HEMOGLOBIN 28.7 PG (27.0-31.0); MEAN CORPUSCULAR HGB CONC 32.5 G/DL (32.0-36.0); MEAN CORPUSCULAR VOLUME 88 FL (80-99); MEAN PLATELET VOLUME 6.2 FL (6.5-10.1); MONOCYTES % (AUTO) 9.2 % (1.0-10.0); NEUTROPHILS % (AUTO) 65.8 % (45.0-75.0); PLATELET COUNT 242 K/UL (150-450); RED BLOOD COUNT 4.02 M/UL (4.70-6.10); WHITE BLOOD COUNT 6.3 K/UL (4.8-10.8)
[2017-02-05 08:10] VITALS: BP 138/76
[2017-02-05 08:18] LABS: ANION GAP 11 (5-15); CALCIUM 9.4 mg/dL (8.6-10.2); CARBON DIOXIDE 24 mEQ/L (20-30); CHLORIDE 103 mEQ/L (98-107); CREATININE 1.2 mg/dL (0.7-1.2); GLOMERULAR FILTRATION RATE > 60 mL/min (>60); HEMOLYSIS 3; POTASSIUM 4.8 mEQ/L (3.4-4.9); SODIUM 138 mEQ/L (135-145)
[2017-02-05] MEDS: DULoxetine 30mg cap ORAL SCH (08:31)
[2017-02-05] MEDS: Cefepime HCl 2 GM in D5W 110 ML IV SCH ×2 (08:35→20:47)
[2017-02-05] MEDS: Heparin 5000 units/ml inj SUBQ SCH ×2 (08:45→20:45)
--- NOTE | 2017-02-05 09:46 | Pulmonology Progress Note ---
Assessment/Plan Assessment/Plan ASSESSMENT abdominal pain complicated UTI with Pseudomonas and Enterococci retroperitoneal lymphadenopathy r/o lymphoma vs malignant neoplasm s/p CT guided biopsy of retroperitoneal lymph node HTN hx of CVA seizure disorder BPH anemia acute renal failure, POA - resolved ( likely due to dehydration) dehydration hypo Mg elevated CEA PLAN OF CARE MS floor CT A/P with evidence of retroperitoneal lymphadenopathy s/p CT guided biopsy fup with biopsy results pain management, intensified to q3 hr prn elevated CEA-5.4 Ca 15-3, Ca 27-27, Ca 19-9, Ca- 125 all WNL abx, ID follows urine cx + Pseudomonas, repeated Enterococci, GNB, repeated mixed urogenital contaminants and GNB, ARF present on admission, resolved, likely 2 to dehydration renal US- negative monitor renal parameters, lytes, correct e/lytes as needed GI follows hx of EGD and colon with findings of gastritis, hemorrhoids hx of ERCP with stent removal for bile leak symptomatic Rx a/emetic prn GI prophylaxis DVT prophylaxis BS management with SS of insulin, HgA1c at goal seizure precautions, continue Keppra, no seizure activity while in the hospital continue Flomax and Terazosin, monitor for urinary retention anemia w/up with low iron heme/onco follows , per heme - anemia of chronic disease vs anemia of malignancy BP management with CCB, optimize as needed, continue ASA O2 HHN prn , keep sat above 92% case discussed and evaluated by supervising physician Subjective Allergies: Coded Allergies: No Known Allergies (Unverified , 02/13/13) Subjective leucocytosis resolved, afebrile, on RA pulse ox stable c/o abdominal pain, not relieved with current medication regimen Objective Last 24 Hour Vital Signs Date Time Temp Pulse Resp B/P Pulse Ox O2 Delivery O2 Flow Rate FiO2 02/05/17 08:10 98.2 68 20 138/76 97 Room Air 02/05/17 07:56 75 18 Room Air 21 02/05/17 04:00 97.7 79 133/79 100 Room Air 02/05/17 00:00 97.9 75 18 129/81 97 Room Air 02/04/17 20:00 98.2 78 20 135/86 95 Room Air 02/04/17 19:50 82 18 Room Air 21 02/04/17 16:00 98.4 73 20 108/74 96 Room Air 02/04/17 12:00 97.9 83 19 98/66 96 Room Air Intake and Output 02/04/17 02/05/17 19:00 07:00 Intake Total 710 ml Output Total 750 ml Balance 710 ml -750 ml Intake Oral 600 ml IV Total 110 ml Output Urine Total 750 ml # Voids 1 # Bowel Movements 1 Objective General Appearance: no acute distress, awake, alert, responsive HEENT: normocephalic, atraumatic, anicteric Respiratory/Chest: lungs clear, no respiratory distress, no accessory muscle use Cardiovascular: normal peripheral pulses, normal rate, no gallop/murmur Abdomen: normal bowel sounds - soft, diffused TTP, worse epigastric and LUQ areas , abdomen soft, no rebound, , some guarding Neurologic/Psychiatric: alert, oriented x 3, responsive Musculoskeletal: atrophy - BLE Laboratory Tests 02/04/17 15:00: Stool Occult Blood [Pending] 02/05/17 05:25: White Blood Count 6.3, Red Blood Count 4.02L, Hemoglobin 11.6L, Hematocrit 35.5L , Mean Corpuscular Volume 88, Mean Corpuscular Hemoglobin 28.7, Mean Corpuscular Hemoglobin Concent 32.5, Red Cell Distribution Width 13.0, Platelet Count 242, Mean Platelet Volume 6.2L, Neutrophils (%) (Auto) 65.8, Lymphocytes ( %) (Auto) 20.0, Monocytes (%) (Auto) 9.2, Eosinophils (%) (Auto) 4.4H, Basophils (%) (Auto) 0.7, Sodium Level 138, Potassium Level 4.8, Chloride Level 103, Carbon Dioxide Level 24, Anion Gap 11, Blood Urea Nitrogen 24H, Creatinine 1.2, Estimat Glomerular Filtration Rate > 60, Glucose Level 146H, Calcium Level 9.4 Current Medications Medications (Trade) Dose Ordered Sig/Gabby Route PRN Reason Start Time Stop Time Status Last Admin Dose Admin Acetaminophen (Tylenol) 650 mg Q4H PRN ORAL fever 01/31/17 23:15 03/02/17 23:14 Albuterol/ Ipratropium (DuoNeb 0.5-3(2.5)mg/3ml) 3 ml Q4H PRN HHN Shortness of Breath 02/04/17 15:30 02/09/17 15:29 Cefepime HCl/ Dextrose (Maxipime/D5W) 110 ml @ 220 mls/hr Q12HR@0900,2100 IV 02/03/17 21:00 02/10/17 20:59 02/05/17 08:35 Dextrose (Dextrose 50%) STAT PRN IV Hypoglycemia 02/01/17 17:30 03/03/17 17:29 Duloxetine HCl (Cymbalta) 30 mg DAILY ORAL 02/01/17 09:00 03/03/17 08:59 02/05/17 08:31 Gabapentin (Neurontin) 400 mg THREE TIMES A DAY ORAL 02/01/17 09:00 03/03/17 08:59 02/05/17 08:31 Heparin Sodium (Porcine) (Heparin 5000 units/ml) 5,000 units EVERY 12 HOURS SUBQ 02/01/17 09:00 03/03/17 08:59 02/05/17 08:45 Hydralazine HCl (Apresoline) 10 mg Q6H PRN ORAL sbp above 160 02/03/17 22:00 03/05/17 21:59 Hydromorphone HCl (Dilaudid) 1 mg Q4H PRN IVP Severe Pain (Pain Scale 7-10) 02/04/17 11:29 02/10/17 11:29 Hydromorphone HCl (Dilaudid) 2 mg Q3H PRN ORAL Moderate Pain (Pain Scale 4-6) 02/04/17 16:00 02/11/17 15:59 Insulin Aspart (NovoLOG) BEFORE MEALS AND HS SUBQ 02/01/17 21:00 03/03/17 20:59 02/05/17 06:06 Levetiracetam (Keppra) 500 mg EVERY 12 HOURS ORAL 02/01/17 09:00 03/03/17 08:59 02/05/17 08:31 Methadone HCl (Methadone HCl) 10 mg EVERY 12 HOURS ORAL 02/04/17 12:00 02/11/17 11:59 02/05/17 08:35 Metronidazole (Flagyl) 500 mg Q8HR ORAL 02/04/17 14:00 02/11/17 13:59 02/05/17 04:59 Ondansetron HCl (Zofran) 4 mg Q6H PRN IVP Nausea & Vomiting 01/31/17 23:15 03/02/17 23:14 Polyethylene Glycol (Miralax) 17 gm DAILYPRN PRN ORAL Constipation 01/31/17 23:15 03/02/17 23:14 02/04/17 05:08 Tamsulosin HCl 0.4 mg 0.4 mg QHS ORAL 02/02/17 21:00 03/04/17 20:59 02/04/17 20:26 Temazepam (Restoril) 15 mg HSPRN PRN ORAL Insomnia 01/31/17 23:15 02/07/17 23:14 02/01/17 01:02 Terazosin HCl (Hytrin) 5 mg DAILY ORAL 02/01/17 09:00 03/03/17 08:59 02/05/17 08:31 Rudy ([facility])Cathy NP Feb 05, 2017 09:46
[2017-02-05] MEDS ORDERED: NS 275ml ONE (10:42)
[2017-02-05] MEDS ORDERED: D5 1/2NS 1000ml IV ONE (10:42)
[2017-02-05 11:33] VITALS: BP 105/60
[2017-02-05] MEDS: HYDROmorphone 1mg/ml Carpuject IVP PRN (11:36)
--- NOTE | 2017-02-05 12:13 | Infectious Diseases Prog Note ---
Assessment/Plan Assessment/Plan ASSESSMENT: The patient is a 66-year-old male with Leukocytosis, SP Left lower quadrant abdominal pain resolved Possible diverticulitis UTI : Ucx :PSA , pt has dysuria UCX repeat : low count strp and Mixed and PSA ( no clinical significance ) HIV test : neg Retroperineal LAP , SP Bx 02/02 History of cellulitis of left upper extremity. 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 History of EGD and colonoscopy : gastritis and hemorrhoids in July 2016 Mild hematuria. Acute renal insufficiency, improving. PLAN: cont pt onFlagyl d# 5 / , and cefepime d# / , upon DC will change AB Rx to Cipro complete the course Monitor CBC. Monitor BMP. GI evaluation for abdominal pain retroperitoneal biopsy :Path pending Subjective Constitutional: Denies: anorexia, chills, drenching sweats, fatigue, fever, no symptoms, other Allergies: Coded Allergies: No Known Allergies (Unverified , 02/13/13) Subjective no new complain Objective Vital Signs Last 24 Hour Vital Signs Date Time Temp Pulse Resp B/P Pulse Ox O2 Delivery O2 Flow Rate FiO2 02/05/17 11:33 98.4 73 20 105/60 97 Room Air 02/05/17 08:10 98.2 68 20 138/76 97 Room Air 02/05/17 07:56 75 18 Room Air 02/05/17 04:00 97.7 79 133/79 100 Room Air 02/05/17 00:00 97.9 75 18 129/81 97 Room Air 02/04/17 20:00 98.2 78 20 135/86 95 Room Air 02/04/17 19:50 82 18 Room Air 21 02/04/17 16:00 98.4 73 20 108/74 96 Room Air Height (Feet): 5 Height (Inches): 6.00 Weight (Pounds): 165 HEENT: atraumatic Respiratory/Chest: no respiratory distress Cardiovascular: regular rhythm Abdomen: non distended Laboratory Tests Test 02/04/17 15:00 02/05/17 05:25 Stool Occult Blood Pending White Blood Count 6.3 K/UL (4.8-10.8) Red Blood Count 4.02 M/UL (4.70-6.10) L Hemoglobin 11.6 G/DL (14.2-18.0) L Hematocrit 35.5 % (42.0-52.0) L Mean Corpuscular Volume 88 FL (80-99) Mean Corpuscular Hemoglobin 28.7 PG (27.0-31.0) Mean Corpuscular Hemoglobin Concent 32.5 G/DL (32.0-36.0) Red Cell Distribution Width 13.0 % (11.6-14.8) Platelet Count 242 K/UL (150-450) Mean Platelet Volume 6.2 FL (6.5-10.1) L Neutrophils (%) (Auto) 65.8 % (45.0-75.0) Lymphocytes (%) (Auto) 20.0 % (20.0-45.0) Monocytes (%) (Auto) 9.2 % (1.0-10.0) Eosinophils (%) (Auto) 4.4 % (0.0-3.0) H Basophils (%) (Auto) 0.7 % (0.0-2.0) Sodium Level 138 mEQ/L (135-145) Potassium Level 4.8 mEQ/L (3.4-4.9) Chloride Level 103 mEQ/L (98-107) Carbon Dioxide Level 24 mEQ/L (20-30) Anion Gap 11 (5-15) Blood Urea Nitrogen 24 mg/dL (7-23) H Creatinine 1.2 mg/dL (0.7-1.2) Estimat Glomerular Filtration Rate > 60 mL/min (>60) Glucose Level 146 mg/dL (74-106) H Calcium Level 9.4 mg/dL (8.6-10.2) Current Medications Medications (Trade) Dose Ordered Sig/Gabby Route PRN Reason Start Time Stop Time Status Last Admin Dose Admin Acetaminophen (Tylenol) 650 mg Q4H PRN ORAL fever 01/31/17 23:15 03/02/17 23:14 Albuterol/ Ipratropium (DuoNeb 0.5-3(2.5)mg/3ml) 3 ml Q4H PRN HHN Shortness of Breath 02/04/17 15:30 02/09/17 15:29 Cefepime HCl/ Dextrose (Maxipime/D5W) 110 ml @ 220 mls/hr Q12HR@0900,2100 IV 02/03/17 21:00 02/10/17 20:59 02/05/17 08:35 Dextrose (Dextrose 50%) STAT PRN IV Hypoglycemia 02/01/17 17:30 03/03/17 17:29 Duloxetine HCl (Cymbalta) 30 mg DAILY ORAL 02/01/17 09:00 03/03/17 08:59 02/05/17 08:31 Gabapentin (Neurontin) 400 mg THREE TIMES A DAY ORAL 02/01/17 09:00 03/03/17 08:59 02/05/17 08:31 Heparin Sodium (Porcine) (Heparin 5000 units/ml) 5,000 units EVERY 12 HOURS SUBQ 02/01/17 09:00 03/03/17 08:59 02/05/17 08:45 Hydralazine HCl (Apresoline) 10 mg Q6H PRN ORAL sbp above 160 02/03/17 22:00 03/05/17 21:59 Hydromorphone HCl (Dilaudid) 1 mg Q4H PRN IVP Severe Pain (Pain Scale 7-10) 02/04/17 11:29 02/10/17 11:29 02/05/17 11:36 Hydromorphone HCl (Dilaudid) 2 mg Q3H PRN ORAL Moderate Pain (Pain Scale 4-6) 02/04/17 16:00 02/11/17 15:59 Insulin Aspart (NovoLOG) BEFORE MEALS AND HS SUBQ 02/01/17 21:00 03/03/17 20:59 02/05/17 11:46 Levetiracetam (Keppra) 500 mg EVERY 12 HOURS ORAL 02/01/17 09:00 03/03/17 08:59 02/05/17 08:31 Methadone HCl (Methadone HCl) 10 mg EVERY 12 HOURS ORAL 02/04/17 12:00 02/11/17 11:59 02/05/17 08:35 Metronidazole (Flagyl) 500 mg Q8HR ORAL 02/04/17 14:00 02/11/17 13:59 02/05/17 04:59 Ondansetron HCl (Zofran) 4 mg Q6H PRN IVP Nausea & Vomiting 01/31/17 23:15 03/02/17 23:14 Polyethylene Glycol (Miralax) 17 gm DAILYPRN PRN ORAL Constipation 01/31/17 23:15 8/16/17 23:14 02/04/17 05:08 Tamsulosin HCl 0.4 mg 0.4 mg QHS ORAL 02/02/17 21:00 03/04/17 20:59 02/04/17 20:26 Temazepam (Restoril) 15 mg HSPRN PRN ORAL Insomnia 01/31/17 23:15 02/07/17 23:14 02/01/17 01:02 Terazosin HCl (Hytrin) 5 mg DAILY ORAL 02/01/17 09:00 03/03/17 08:59 02/05/17 08:31 BARBARA ARAUJO M.D. Feb 05, 2017 12:13
[2017-02-05 16:11] VITALS: BP 119/72
[2017-02-05 20:00] VITALS: BP 127/93
--- NOTE | 2017-02-05 20:19 | Consultation ---
History of Present Illness General Date patient seen: Feb 05, 2017 Time patient seen: 20:16 Chief Complaint: Abdominal Pain Referring physician: FORTINO OWENS Reason for Consultation: ABDOMINAL PAIN Present Illness HPI Admitted for abdominal pain and retroperitoneal LAD workup. biopsy path pending. Noted retention today, persistent dysuria yesterday. Bladder scan showed over 700 mL in bladder. After brown placement, lower abdominal pain improved. Urine culture shows pseudomonas, being treated. Patient notes chronic hx of difficulty voiding and has used a catheter in the past. Allergies: Coded Allergies: No Known Allergies (Unverified , 02/13/13) Medication History Scheduled Amoxicillin/Potassium Clav 875-125* (Augmentin 875-125 Tablet*), 1 TAB ORAL TWICE A DAY, (Reported) Aspirin* (Aspirin*), 81 MG ORAL DAILY, (Reported) Benazepril Hcl* (Lotensin*), 20 MG ORAL DAILY, (Reported) Bisacodyl* (Dulcolax*), 10 MG ORAL DAILY, (Reported) Brimonidine Tartrate* (Alphagan*), 1 DROP BOTH EYES TID, (Reported) Ciprofloxacin Hcl* (Ciprofloxacin Hcl*), 500 MG ORAL Q12H Cranberry Extract (Cranberry), 425 MG PO BID, (Reported) Docusate Sodium* (Colace*), 100 MG ORAL DAILY, (Reported) Duloxetine Hcl* (Cymbalta*), 30 MG ORAL DAILY, (Reported) Dutasteride (Avodart), 0.5 MG ORAL DAILY, (Reported) Gabapentin* (Gabapentin*), 400 MG ORAL THREE TIMES A DAY, (Reported) Gabapentin* (Gabapentin*), 600 MG ORAL DAILY, (Reported) Insulin Glargine (Lantus), 20 UNITS SUBQ BEDTIME, (Reported) Levetiracetam (Keppra), 500 MG ORAL EVERY 12 HOURS, (Reported) Magnesium Hydroxide* (Milk Of Magnesia*), 30 ML ORAL DAILY, (Reported) Multivitamin (Multi Vitamin Daily), 1 TAB ORAL DAILY, (Reported) Nitrofurantoin Monohyd/M-Cryst* (Macrobid 100 Mg*), 100 MG ORAL EVERY 12 HOURS Phenazopyridine Hcl* (Pyridium*), 100 MG ORAL THREE TIMES A DAY Simvastatin (Zocor), 20 MG ORAL BEDTIME, (Reported) Tamsulosin Hcl (Tamsulosin Hcl*), 0.4 MG ORAL BEDTIME, (Reported) Terazosin HCl (Terazosin HCl), 5 MG ORAL DAILY Trimethoprim/Sulfamethoxazole (Bactrim Ds Tablet), 1 TAB ORAL TWICE A DAY, ( Reported) Scheduled PRN Acetaminophen (Tylenol), 650 MG ORAL Q6H PRN for Fever/Headache/Mild Pain, ( Reported) Diphenhydramine HCl (Benadryl), 25 MG PO Q6HR PRN for Itching, (Reported) Hydrocodone Bit/Acetaminophen 10-325* ([place] 10-325*), 1 TAB ORAL Q4H PRN for For Pain, (Reported) Hydrocodone Bit/Acetaminophen 10-325* ([place] 10-325*), 1 TAB ORAL Q6H PRN for For Pain, (Reported) Hydrocodone Bit/Acetaminophen 5-325* ([place] 5-325 Tablet*), 1 TAB ORAL Q6HR PRN for For Pain, (Reported) Miscellaneous Medications Insulin Lispro (Humalog), 0 SUBQ, (Reported) Polyvinyl Alcohol (Polyvinyl Alcohol), 15 ML OP, (Reported) [lispro insulin], (Reported) Patient History Limited by: language barrier History Provided By: Patient, Medical Record Healthcare decision maker Resuscitation status Full Code Advanced Directive on File Past Medical/Surgical History Past Medical/Surgical History: (1) Back pain (2) Urinary retention due to benign prostatic hyperplasia (3) UTI (urinary tract infection) (4) HTN (hypertension) Review of Systems Constitutional: Denies: chills, fever, malaise, no symptoms, other, see HPI, sweats, weakness Eye: Denies: acuity changes, blurred vision, discharge, double vision, eye pain , no symptoms, nose congestion, nose pain, other, see HPI, tearing ENT: Denies: ear discharge, ear pain, hearing loss, mouth pain, nasal discharge , no symptoms, nose congestion, nose pain, other, see HPI, throat pain, throat swelling Respiratory: Denies: ORTIZ, cough, no symptoms, orthopnea, other, see HPI, shortness of breath, sputum, stridor, wheezing Cardiovascular: Denies: PND, chest pain, edema, no symptoms, other, palpitations, see HPI, syncope Gastrointestinal: Reports: abdominal pain Genitourinary: Denies: discharge, dysuria, frequency, hematuria, incontinence, no symptoms, other, pain, retention, see HPI, urgency, vag bleed/dc Musculoskeletal: Denies: back pain, gout, joint pain, joint swelling, muscle pain, muscle stiffness, no symptoms, other, see HPI Skin: Denies: change in color, change in hair/nails, dryness, lesions, no symptoms, other, rash, see HPI Psychiatric: Denies: HI, SI, anxiety, depressed feelings, emotional problems, hallucinations, no symptoms, other, prior hx, see HPI Neurological: Denies: dizziness, focal weakness, headache, no symptoms, numbness, other, paresthesia, see HPI, seizure, syncope, tingling, tremors Endocrine: Denies: excessive sweating, flushing, increased thirst, increased urine, intolerance to temperature, no symptoms, other, see HPI, unexplained weight loss Hematologic/Lymphatic: Denies: anemia, blood clots, diathesis, easy bleeding, easy bruising, no symptoms, other, see HPI, swollen glands Physical Exam General Appearance: no apparent distress HEENT: normocephalic Neck: supple Cardiovascular/Chest: normal rate Abdomen: soft Genitourinary/Rectal: brown Last 24 Hour Vital Signs Date Time Temp Pulse Resp B/P Pulse Ox O2 Delivery O2 Flow Rate FiO2 02/05/17 16:11 97.5 86 20 119/72 97 Room Air 02/05/17 11:33 98.4 73 20 105/60 97 Room Air 02/05/17 08:10 98.2 68 20 138/76 97 Room Air 02/05/17 07:56 75 18 Room Air 21 02/05/17 04:00 97.7 79 133/79 100 Room Air 02/05/17 00:00 97.9 75 18 129/81 97 Room Air Intake and Output 02/04/17 02/05/17 19:00 07:00 Intake Total 710 ml Output Total 750 ml Balance 710 ml -750 ml Intake Oral 600 ml IV Total 110 ml Output Urine Total 750 ml # Voids 1 # Bowel Movements 1 Laboratory Tests Test 02/05/17 05:25 White Blood Count 6.3 K/UL (4.8-10.8) Red Blood Count 4.02 M/UL (4.70-6.10) L Hemoglobin 11.6 G/DL (14.2-18.0) L Hematocrit 35.5 % (42.0-52.0) L Mean Corpuscular Volume 88 FL (80-99) Mean Corpuscular Hemoglobin 28.7 PG (27.0-31.0) Mean Corpuscular Hemoglobin Concent 32.5 G/DL (32.0-36.0) Red Cell Distribution Width 13.0 % (11.6-14.8) Platelet Count 242 K/UL (150-450) Mean Platelet Volume 6.2 FL (6.5-10.1) L Neutrophils (%) (Auto) 65.8 % (45.0-75.0) Lymphocytes (%) (Auto) 20.0 % (20.0-45.0) Monocytes (%) (Auto) 9.2 % (1.0-10.0) Eosinophils (%) (Auto) 4.4 % (0.0-3.0) H Basophils (%) (Auto) 0.7 % (0.0-2.0) Sodium Level 138 mEQ/L (135-145) Potassium Level 4.8 mEQ/L (3.4-4.9) Chloride Level 103 mEQ/L (98-107) Carbon Dioxide Level 24 mEQ/L (20-30) Anion Gap 11 (5-15) Blood Urea Nitrogen 24 mg/dL (7-23) H Creatinine 1.2 mg/dL (0.7-1.2) Estimat Glomerular Filtration Rate > 60 mL/min (>60) Glucose Level 146 mg/dL (74-106) H Calcium Level 9.4 mg/dL (8.6-10.2) Height (Feet): 5 Height (Inches): 6.00 Weight (Pounds): 165 Medications Current Medications Medications (Trade) Dose Ordered Sig/Gabby Route PRN Reason Start Time Stop Time Status Last Admin Dose Admin Acetaminophen (Tylenol) 650 mg Q4H PRN ORAL fever 01/31/17 23:15 03/02/17 23:14 Albuterol/ Ipratropium (DuoNeb 0.5-3(2.5)mg/3ml) 3 ml Q4H PRN HHN Shortness of Breath 02/04/17 15:30 02/09/17 15:29 Cefepime HCl/ Dextrose (Maxipime/D5W) 110 ml @ 220 mls/hr Q12HR@0900,2100 IV 02/03/17 21:00 02/10/17 20:59 02/05/17 08:35 Dextrose (Dextrose 50%) STAT PRN IV Hypoglycemia 02/01/17 17:30 03/03/17 17:29 Duloxetine HCl (Cymbalta) 30 mg DAILY ORAL 02/01/17 09:00 03/03/17 08:59 02/05/17 08:31 Gabapentin (Neurontin) 400 mg THREE TIMES A DAY ORAL 02/01/17 09:00 03/03/17 08:59 02/05/17 17:56 Heparin Sodium (Porcine) (Heparin 5000 units/ml) 5,000 units EVERY 12 HOURS SUBQ 02/01/17 09:00 03/03/17 08:59 02/05/17 08:45 Hydralazine HCl (Apresoline) 10 mg Q6H PRN ORAL sbp above 160 02/03/17 22:00 03/05/17 21:59 Hydromorphone HCl (Dilaudid) 1 mg Q4H PRN IVP Severe Pain (Pain Scale 7-10) 02/04/17 11:29 02/10/17 11:29 02/05/17 11:36 Hydromorphone HCl (Dilaudid) 2 mg Q3H PRN ORAL Moderate Pain (Pain Scale 4-6) 02/04/17 16:00 02/11/17 15:59 Insulin Aspart (NovoLOG) BEFORE MEALS AND HS SUBQ 02/01/17 21:00 03/03/17 20:59 02/05/17 16:34 Levetiracetam (Keppra) 500 mg EVERY 12 HOURS ORAL 02/01/17 09:00 03/03/17 08:59 02/05/17 08:31 Methadone HCl (Methadone HCl) 10 mg EVERY 12 HOURS ORAL 02/04/17 12:00 02/11/17 11:59 02/05/17 08:35 Metronidazole (Flagyl) 500 mg Q8HR ORAL 02/04/17 14:00 02/11/17 13:59 02/05/17 14:05 Ondansetron HCl (Zofran) 4 mg Q6H PRN IVP Nausea & Vomiting 01/31/17 23:15 03/02/17 23:14 02/05/17 14:58 Polyethylene Glycol (Miralax) 17 gm DAILYPRN PRN ORAL Constipation 01/31/17 23:15 03/02/17 23:14 02/04/17 05:08 Tamsulosin HCl 0.4 mg 0.4 mg QHS ORAL 02/02/17 21:00 03/04/17 20:59 02/04/17 20:26 Temazepam (Restoril) 15 mg HSPRN PRN ORAL Insomnia 01/31/17 23:15 02/07/17 23:14 02/01/17 01:02 Terazosin HCl (Hytrin) 5 mg DAILY ORAL 02/01/17 09:00 03/03/17 08:59 02/05/17 08:31 Objective Narrative UA/Ucx pseudomonas Assessment/Plan Status: stable Assessment/Plan 66 yo male with abdominal pain and retroperitoneal lymphadenopathy. Retention seems to be chronic issue. Does have UTI. Catheter replaced today and Suprapubic pain and dysuria is now gone. Recommend continuing all BPH meds and brown till adequate abx course is done then f/u with own urologist to discuss brown management from there. El Mccord M.D. Feb 05, 2017 20:19
[2017-02-05] MEDS: Tamsulosin 0.4mg cap ORAL SCH (20:43)
[2017-02-06] VITALS (7 sets, daily range): BP systolic 91–149; BP diastolic 47–85
[2017-02-06] MEDS: HYDROmorphone 1mg/ml Carpuject IVP PRN ×2 (05:21→13:32)
[2017-02-06] MEDS: metroNIDAZOLE 500mg tab ORAL SCH ×3 (06:08→21:17)
[2017-02-06] MEDS: NovoLOG Insulin Flexpen SUBQ SCH ×4 (06:11→21:19)
[2017-02-06 07:24] LABS: BASOPHILS % (AUTO) 0.3 % (0.0-2.0); EOSINOPHILS % (AUTO) 4.4 % (0.0-3.0); LYMPHOCYTES % (AUTO) 23.6 % (20.0-45.0); MEAN CORPUSCULAR HEMOGLOBIN 29.2 PG (27.0-31.0); MEAN CORPUSCULAR VOLUME 88 FL (80-99); MONOCYTES % (AUTO) 11.3 % (1.0-10.0); NEUTROPHILS % (AUTO) 60.5 % (45.0-75.0); PLATELET COUNT 234 K/UL (150-450); RED BLOOD COUNT 3.71 M/UL (4.70-6.10); RED CELL DISTRIBUTION WIDTH 12.9 % (11.6-14.8); WHITE BLOOD COUNT 5.3 K/UL (4.8-10.8)
[2017-02-06 07:44] LABS: ANION GAP 10 (5-15); CALCIUM 9.1 mg/dL (8.6-10.2); CARBON DIOXIDE 22 mEQ/L (20-30); CHLORIDE 103 mEQ/L (98-107); CREATININE 1.1 mg/dL (0.7-1.2); GLOMERULAR FILTRATION RATE > 60 mL/min (>60); HEMOLYSIS 0; POTASSIUM 4.3 mEQ/L (3.4-4.9); SODIUM 135 mEQ/L (135-145)
[2017-02-06] MEDS: DULoxetine 30mg cap ORAL SCH (08:12)
[2017-02-06] MEDS: Heparin 5000 units/ml inj SUBQ SCH ×2 (08:15→21:18)
--- NOTE | 2017-02-06 08:45 | Pulmonology Progress Note ---
Assessment/Plan Assessment/Plan ASSESSMENT abdominal pain due to underlying malignancy complicated UTI with Pseudomonas and Enterococci retroperitoneal lymphadenopathy r/o lymphoma vs malignant neoplasm s/p CT guided biopsy of retroperitoneal lymph node HTN hx of CVA seizure disorder BPH anemia acute renal failure, POA - resolved ( likely due to dehydration) dehydration hypo Mg elevated CEA PLAN OF CARE MS floor CT A/P with evidence of retroperitoneal lymphadenopathy s/p CT guided biopsy fup with biopsy results pain management, intensified ; pain currently controlled elevated CEA-5.4 Ca 15-3, Ca 27-27, Ca 19-9, Ca- 125 all WNL abx, ID follows urine cx + Pseudomonas, repeated Enterococci, GNB, repeated mixed urogenital contaminants and GNB, ARF present on admission, resolved, likely 2 to dehydration renal US- negative monitor renal parameters, lytes, correct e/lytes as needed GI follows hx of EGD and colon with findings of gastritis, hemorrhoids hx of ERCP with stent removal for bile leak symptomatic Rx a/emetic prn GI prophylaxis DVT prophylaxis BS management with SS of insulin, HgA1c at goal seizure precautions, continue Keppra, no seizure activity while in the hospital continue Flomax and Terazosin, monitor for urinary retention anemia w/up with low iron heme/onco follows , per heme - anemia of chronic disease vs anemia of malignancy BP management with CCB, optimize as needed, continue ASA O2 HHN prn , keep sat above 92% case discussed and evaluated by supervising physician Subjective Allergies: Coded Allergies: No Known Allergies (Unverified , 02/13/13) Subjective leucocytosis resolved, afebrile, on RA pulse ox stable pain controlled after analgesic regimen intensified Objective Last 24 Hour Vital Signs Date Time Temp Pulse Resp B/P Pulse Ox O2 Delivery O2 Flow Rate FiO2 02/06/17 07:50 98.1 82 19 149/85 97 Room Air 02/06/17 05:51 97.5 02/06/17 04:00 97.5 71 19 123/47 100 Room Air 02/06/17 00:00 97.0 70 19 147/75 99 Room Air 02/05/17 20:34 82 18 Room Air 21 02/05/17 20:00 97.9 86 20 127/93 95 Room Air 02/05/17 16:11 97.5 86 20 119/72 97 Room Air 02/05/17 11:33 98.4 73 20 105/60 97 Room Air Bad tableObjective General Appearance: no acute distress, awake, alert, responsive HEENT: normocephalic, atraumatic, anicteric Respiratory/Chest: lungs clear, no respiratory distress, no accessory muscle use Cardiovascular: normal peripheral pulses, normal rate, no gallop/murmur Abdomen: normal bowel sounds - soft, diffused TTP, worse epigastric and LUQ areas , abdomen soft, no rebound, , some guarding Neurologic/Psychiatric: alert, oriented x 3, responsive Musculoskeletal: atrophy - BLE Laboratory Tests 02/06/17 05:20: White Blood Count 5.3, Red Blood Count 3.71L, Hemoglobin 10.8L, Hematocrit 32.8L , Mean Corpuscular Volume 88, Mean Corpuscular Hemoglobin 29.2, Mean Corpuscular Hemoglobin Concent 33.0, Red Cell Distribution Width 12.9, Platelet Count 234, Mean Platelet Volume 6.0L, Neutrophils (%) (Auto) 60.5, Lymphocytes ( %) (Auto) 23.6, Monocytes (%) (Auto) 11.3H, Eosinophils (%) (Auto) 4.4H, Basophils (%) (Auto) 0.3, Sodium Level 135, Potassium Level 4.3, Chloride Level 103, Carbon Dioxide Level 22, Anion Gap 10, Blood Urea Nitrogen 28H, Creatinine 1.1, Estimat Glomerular Filtration Rate > 60, Glucose Level 107H, Calcium Level 9.1 Current Medications Medications (Trade) Dose Ordered Sig/Gabby Route PRN Reason Start Time Stop Time Status Last Admin Dose Admin Acetaminophen (Tylenol) 650 mg Q4H PRN ORAL fever 01/31/17 23:15 03/02/17 23:14 Albuterol/ Ipratropium (DuoNeb 0.5-3(2.5)mg/3ml) 3 ml Q4H PRN HHN Shortness of Breath 02/04/17 15:30 02/09/17 15:29 Cefepime HCl/ Dextrose (Maxipime/D5W) 110 ml @ 220 mls/hr Q12HR@0900,2100 IV 02/03/17 21:00 02/10/17 20:59 02/05/17 20:47 Dextrose (Dextrose 50%) STAT PRN IV Hypoglycemia 02/01/17 17:30 03/03/17 17:29 Duloxetine HCl (Cymbalta) 30 mg DAILY ORAL 02/01/17 09:00 03/03/17 08:59 02/06/17 08:12 Gabapentin (Neurontin) 400 mg THREE TIMES A DAY ORAL 02/01/17 09:00 03/03/17 08:59 02/06/17 08:12 Heparin Sodium (Porcine) (Heparin 5000 units/ml) 5,000 units EVERY 12 HOURS SUBQ 02/01/17 09:00 03/03/17 08:59 02/06/17 08:15 Hydralazine HCl (Apresoline) 10 mg Q6H PRN ORAL sbp above 160 02/03/17 22:00 03/05/17 21:59 Hydromorphone HCl (Dilaudid) 1 mg Q4H PRN IVP Severe Pain (Pain Scale 7-10) 02/04/17 11:29 02/10/17 11:29 02/06/17 05:21 Hydromorphone HCl (Dilaudid) 2 mg Q3H PRN ORAL Moderate Pain (Pain Scale 4-6) 02/04/17 16:00 02/11/17 15:59 Insulin Aspart (NovoLOG) BEFORE MEALS AND HS SUBQ 02/01/17 21:00 03/03/17 20:59 02/06/17 06:11 Levetiracetam (Keppra) 500 mg EVERY 12 HOURS ORAL 02/01/17 09:00 03/03/17 08:59 02/06/17 08:12 Methadone HCl (Methadone HCl) 10 mg EVERY 12 HOURS ORAL 02/04/17 12:00 02/11/17 11:59 02/06/17 08:12 Metronidazole (Flagyl) 500 mg Q8HR ORAL 02/04/17 14:00 02/11/17 13:59 02/06/17 06:08 Ondansetron HCl (Zofran) 4 mg Q6H PRN IVP Nausea & Vomiting 01/31/17 23:15 03/02/17 23:14 02/06/17 05:20 Polyethylene Glycol (Miralax) 17 gm DAILYPRN PRN ORAL Constipation 01/31/17 23:15 03/02/17 23:14 02/04/17 05:08 Tamsulosin HCl 0.4 mg 0.4 mg QHS ORAL 02/02/17 21:00 03/04/17 20:59 02/05/17 20:43 Temazepam (Restoril) 15 mg HSPRN PRN ORAL Insomnia 01/31/17 23:15 02/07/17 23:14 02/01/17 01:02 Terazosin HCl (Hytrin) 5 mg DAILY ORAL 02/01/17 09:00 03/03/17 08:59 02/06/17 08:12 Rudy AlbertoJohn R. Oishei Children'S HospitalCathy Pina NP Feb 06, 2017 08:45
[2017-02-06] MEDS: Cefepime HCl 2 GM in D5W 110 ML IV SCH ×2 (09:04→21:17)
--- NOTE | 2017-02-06 09:41 | General Progress Note ---
Assessment/Plan Problem List: (1) Anemia ICD Codes: D64.9 - Anemia, unspecified SNOMED: 477481290 (2) Abdominal pain ICD Codes: R10.9 - Unspecified abdominal pain SNOMED: 11457902 (3) History of CVA (cerebrovascular accident) ICD Codes: Z86.73 - Personal history of transient ischemic attack (TIA), and cerebral infarction without residual deficits SNOMED: 582571020 (4) HTN (hypertension) ICD Codes: I10 - Essential (primary) hypertension SNOMED: 69048224 (5) Seizure disorder ICD Codes: G40.909 - Epilepsy, unspecified, not intractable, without status epilepticus SNOMED: 845263843 (6) Lymphadenopathy ICD Codes: R59.1 - Generalized enlarged lymph nodes SNOMED: 17994132 (7) Diabetes ICD Codes: E11.9 - Type 2 diabetes mellitus without complications SNOMED: 97674367 (8) BPH (benign prostatic hyperplasia) ICD Codes: N40.0 - Enlarged prostate without lower urinary tract symptoms SNOMED: 947129412, 751860526 (9) penitentiary resident ICD Codes: Z59.3 - Problems related to living in residential institution SNOMED: 578505821 Assessment/Plan fu CT guided biopsy results fu oncology fu labs gi procedures if needed Subjective ROS Limited/Unobtainable: No Allergies: Coded Allergies: No Known Allergies (Unverified , 02/13/13) Subjective no event Objective Last 24 Hour Vital Signs Date Time Temp Pulse Resp B/P Pulse Ox O2 Delivery O2 Flow Rate FiO2 02/06/17 08:00 80 18 Room Air 21 02/06/17 07:50 98.1 82 19 149/85 97 Room Air 02/06/17 05:51 97.5 02/06/17 04:00 97.5 71 19 123/47 100 Room Air 02/06/17 00:00 97.0 70 19 147/75 99 Room Air 02/05/17 20:34 82 18 Room Air 21 02/05/17 20:00 97.9 86 20 127/93 95 Room Air 02/05/17 16:11 97.5 86 20 119/72 97 Room Air 02/05/17 11:33 98.4 73 20 105/60 97 Room Air Bad tableLaboratory Tests 02/06/17 05:20: White Blood Count 5.3, Red Blood Count 3.71L, Hemoglobin 10.8L, Hematocrit 32.8L , Mean Corpuscular Volume 88, Mean Corpuscular Hemoglobin 29.2, Mean Corpuscular Hemoglobin Concent 33.0, Red Cell Distribution Width 12.9, Platelet Count 234, Mean Platelet Volume 6.0L, Neutrophils (%) (Auto) 60.5, Lymphocytes ( %) (Auto) 23.6, Monocytes (%) (Auto) 11.3H, Eosinophils (%) (Auto) 4.4H, Basophils (%) (Auto) 0.3, Sodium Level 135, Potassium Level 4.3, Chloride Level 103, Carbon Dioxide Level 22, Anion Gap 10, Blood Urea Nitrogen 28H, Creatinine 1.1, Estimat Glomerular Filtration Rate > 60, Glucose Level 107H, Calcium Level 9.1 Height (Feet): 5 Height (Inches): 6.00 Weight (Pounds): 165 General Appearance: no apparent distress EENT: normal ENT inspection Neck: supple Cardiovascular: normal rate Respiratory/Chest: decreased breath sounds Abdomen: normal bowel sounds, non tender, soft Extremities: non-tender TIM VIVAR Feb 06, 2017 09:40
--- NOTE | 2017-02-06 13:07 | Infectious Diseases Prog Note ---
Assessment/Plan Assessment/Plan A; UTI Diverticulitis Retroperitoneal adenopathy Anemia P; continue Flagyl d# 6 / , and cefepime d# 6 / , upon DC will change AB Rx to Cipro complete the course . Subjective ROS Limited/Unobtainable: No Constitutional: Reports: anorexia Respiratory: Reports: no symptoms Gastrointestinal/Abdominal: Reports: other - pain, abdominal Allergies: Coded Allergies: No Known Allergies (Unverified , 02/13/13) Objective Vital Signs Last 24 Hour Vital Signs Date Time Temp Pulse Resp B/P Pulse Ox O2 Delivery O2 Flow Rate FiO2 02/06/17 12:00 97.7 87 20 91/67 94 Room Air 02/06/17 08:00 80 18 Room Air 02/06/17 07:50 98.1 82 19 149/85 97 Room Air 02/06/17 05:51 97.5 02/06/17 04:00 97.5 71 19 123/47 100 Room Air 02/06/17 00:00 97.0 70 19 147/75 99 Room Air 02/05/17 20:34 82 18 Room Air 21 02/05/17 20:00 97.9 86 20 127/93 95 Room Air 02/05/17 16:11 97.5 86 20 119/72 97 Room Air Height (Feet): 5 Height (Inches): 6.00 Weight (Pounds): 165 General Appearance: no acute distress HEENT: mucous membranes moist Respiratory/Chest: lungs clear Cardiovascular: normal rate Abdomen: tender Genitourinary: other - Potter catheter Extremities: no edema Laboratory Tests Test 02/06/17 05:20 White Blood Count 5.3 K/UL (4.8-10.8) Red Blood Count 3.71 M/UL (4.70-6.10) L Hemoglobin 10.8 G/DL (14.2-18.0) L Hematocrit 32.8 % (42.0-52.0) L Mean Corpuscular Volume 88 FL (80-99) Mean Corpuscular Hemoglobin 29.2 PG (27.0-31.0) Mean Corpuscular Hemoglobin Concent 33.0 G/DL (32.0-36.0) Red Cell Distribution Width 12.9 % (11.6-14.8) Platelet Count 234 K/UL (150-450) Mean Platelet Volume 6.0 FL (6.5-10.1) L Neutrophils (%) (Auto) 60.5 % (45.0-75.0) Lymphocytes (%) (Auto) 23.6 % (20.0-45.0) Monocytes (%) (Auto) 11.3 % (1.0-10.0) H Eosinophils (%) (Auto) 4.4 % (0.0-3.0) H Basophils (%) (Auto) 0.3 % (0.0-2.0) Sodium Level 135 mEQ/L (135-145) Potassium Level 4.3 mEQ/L (3.4-4.9) Chloride Level 103 mEQ/L (98-107) Carbon Dioxide Level 22 mEQ/L (20-30) Anion Gap 10 (5-15) Blood Urea Nitrogen 28 mg/dL (7-23) H Creatinine 1.1 mg/dL (0.7-1.2) Estimat Glomerular Filtration Rate > 60 mL/min (>60) Glucose Level 107 mg/dL (74-106) H Calcium Level 9.1 mg/dL (8.6-10.2) Current Medications Medications (Trade) Dose Ordered Sig/Gabby Route PRN Reason Start Time Stop Time Status Last Admin Dose Admin Acetaminophen (Tylenol) 650 mg Q4H PRN ORAL fever 01/31/17 23:15 03/02/17 23:14 Albuterol/ Ipratropium (DuoNeb 0.5-3(2.5)mg/3ml) 3 ml Q4H PRN HHN Shortness of Breath 02/04/17 15:30 02/09/17 15:29 Cefepime HCl/ Dextrose (Maxipime/D5W) 110 ml @ 220 mls/hr Q12HR@0900,2100 IV 02/03/17 21:00 02/10/17 20:59 02/06/17 09:04 Dextrose (Dextrose 50%) STAT PRN IV Hypoglycemia 02/01/17 17:30 03/03/17 17:29 Duloxetine HCl (Cymbalta) 30 mg DAILY ORAL 02/01/17 09:00 03/03/17 08:59 02/06/17 08:12 Gabapentin (Neurontin) 400 mg THREE TIMES A DAY ORAL 02/01/17 09:00 03/03/17 08:59 02/06/17 08:12 Heparin Sodium (Porcine) (Heparin 5000 units/ml) 5,000 units EVERY 12 HOURS SUBQ 02/01/17 09:00 03/03/17 08:59 02/06/17 08:15 Hydralazine HCl (Apresoline) 10 mg Q6H PRN ORAL sbp above 160 02/03/17 22:00 03/05/17 21:59 Hydromorphone HCl (Dilaudid) 1 mg Q4H PRN IVP Severe Pain (Pain Scale 7-10) 02/04/17 11:29 02/10/17 11:29 02/06/17 05:21 Hydromorphone HCl (Dilaudid) 2 mg Q3H PRN ORAL Moderate Pain (Pain Scale 4-6) 02/04/17 16:00 02/11/17 15:59 Insulin Aspart (NovoLOG) BEFORE MEALS AND HS SUBQ 02/01/17 21:00 03/03/17 20:59 02/06/17 11:56 Levetiracetam (Keppra) 500 mg EVERY 12 HOURS ORAL 02/01/17 09:00 03/03/17 08:59 02/06/17 08:12 Methadone HCl (Methadone HCl) 10 mg EVERY 12 HOURS ORAL 02/04/17 12:00 02/11/17 11:59 02/06/17 08:12 Metronidazole (Flagyl) 500 mg Q8HR ORAL 02/04/17 14:00 02/11/17 13:59 02/06/17 06:08 Ondansetron HCl (Zofran) 4 mg Q6H PRN IVP Nausea & Vomiting 01/31/17 23:15 03/02/17 23:14 02/06/17 05:20 Polyethylene Glycol (Miralax) 17 gm DAILYPRN PRN ORAL Constipation 01/31/17 23:15 03/02/17 23:14 02/04/17 05:08 Tamsulosin HCl 0.4 mg 0.4 mg QHS ORAL 02/02/17 21:00 03/04/17 20:59 02/05/17 20:43 Temazepam (Restoril) 15 mg HSPRN PRN ORAL Insomnia 02/06/17 21:00 02/13/17 20:59 Terazosin HCl (Hytrin) 5 mg DAILY ORAL 02/01/17 09:00 03/03/17 08:59 02/06/17 08:12 ARCADIO MANRIQUEZ Feb 06, 2017 13:07
--- NOTE | 2017-02-06 15:55 | General Progress Note ---
Assessment/Plan Assessment/Plan ASSESSMENT AND PLAN: 1. Retroperitoneal lymphadenopathy. --> CT-guided biopsy concerning for lymphoma completed --> path report remains pending 2. Anemia secondary to chronic disease versus malignancy. 3. History of urinary tract infection, again, treated with antibiotics. 4. Abdominal pain, left sided. --> possible diverticulosis 5. Seizure disorder. 6. Discussed with Interventional Radiology potentially to obtain biopsy on 02/02. 7. BPH --> Flomax Subjective Constitutional: Reports: no symptoms HEENT: Reports: no symptoms Cardiovascular: Reports: no symptoms Respiratory: Reports: no symptoms Gastrointestinal/Abdominal: Reports: poor appetite Genitourinary: Reports: no symptoms Neurologic/Psychiatric: Reports: no symptoms Endocrine: Reports: no symptoms Hematologic/Lymphatic: Reports: anemia Allergies: Coded Allergies: No Known Allergies (Unverified , 02/13/13) Subjective feels better today, path report still pending Objective Last 24 Hour Vital Signs Date Time Temp Pulse Resp B/P Pulse Ox O2 Delivery O2 Flow Rate FiO2 02/06/17 14:02 97.7 02/06/17 13:28 80 130/72 02/06/17 12:00 97.7 87 20 91/67 94 Room Air 02/06/17 08:00 80 18 Room Air 21 02/06/17 07:50 98.1 82 19 149/85 97 Room Air 02/06/17 04:00 97.5 71 19 123/47 100 Room Air 02/06/17 00:00 97.0 70 19 147/75 99 Room Air 02/05/17 20:34 82 18 Room Air 21 02/05/17 20:00 97.9 86 20 127/93 95 Room Air 02/05/17 16:11 97.5 86 20 119/72 97 Room Air Bad tableLaboratory Tests 02/06/17 05:20: White Blood Count 5.3, Red Blood Count 3.71L, Hemoglobin 10.8L, Hematocrit 32.8L , Mean Corpuscular Volume 88, Mean Corpuscular Hemoglobin 29.2, Mean Corpuscular Hemoglobin Concent 33.0, Red Cell Distribution Width 12.9, Platelet Count 234, Mean Platelet Volume 6.0L, Neutrophils (%) (Auto) 60.5, Lymphocytes ( %) (Auto) 23.6, Monocytes (%) (Auto) 11.3H, Eosinophils (%) (Auto) 4.4H, Basophils (%) (Auto) 0.3, Sodium Level 135, Potassium Level 4.3, Chloride Level 103, Carbon Dioxide Level 22, Anion Gap 10, Blood Urea Nitrogen 28H, Creatinine 1.1, Estimat Glomerular Filtration Rate > 60, Glucose Level 107H, Calcium Level 9.1 Height (Feet): 5 Height (Inches): 6.00 Weight (Pounds): 165 General Appearance: no apparent distress EENT: pharynx normal Neck: normal alignment Cardiovascular: regular rhythm Respiratory/Chest: normal breath sounds Extremities: non-tender Edema: 1+ Leg (L), 1+ Leg (R) Edema: mild edema Neurologic: alert Skin: warm/dry Benjy Godwin Feb 06, 2017 15:55
[2017-02-06] MEDS: Tamsulosin 0.4mg cap ORAL SCH (21:17)
--- NOTE | 2017-02-06 21:52 | General Progress Note ---
Assessment/Plan Assessment/Plan ASSESSMENT AND PLAN: 1. Retroperitoneal lymphadenopathy. --> CT-guided biopsy concerning for lymphoma completed --> path report remains pending 2. Anemia secondary to chronic disease versus malignancy. 3. History of urinary tract infection, again, treated with antibiotics. 4. Abdominal pain, left sided. --> possible diverticulosis 5. Seizure disorder. 6. Discussed with Interventional Radiology potentially to obtain biopsy on 02/02. 7. BPH --> Flomax Subjective Constitutional: Reports: no symptoms HEENT: Reports: no symptoms Cardiovascular: Reports: no symptoms Respiratory: Reports: no symptoms Gastrointestinal/Abdominal: Reports: no symptoms Genitourinary: Reports: no symptoms Neurologic/Psychiatric: Reports: no symptoms Endocrine: Reports: no symptoms Hematologic/Lymphatic: Reports: anemia Allergies: Coded Allergies: No Known Allergies (Unverified , 02/13/13) Subjective feels better today, path report still pending Objective Last 24 Hour Vital Signs Date Time Temp Pulse Resp B/P Pulse Ox O2 Delivery O2 Flow Rate FiO2 02/06/17 21:29 93 Room Air 02/06/17 20:00 97.7 80 20 113/47 91 Room Air 02/06/17 16:00 97.7 78 20 98/66 96 Room Air 02/06/17 14:02 97.7 02/06/17 13:28 80 130/72 02/06/17 12:00 97.7 87 20 91/67 94 Room Air 02/06/17 08:00 80 18 Room Air 21 02/06/17 07:50 98.1 82 19 149/85 97 Room Air 02/06/17 04:00 97.5 71 19 123/47 100 Room Air 02/06/17 00:00 97.0 70 19 147/75 99 Room Air Bad tableLaboratory Tests 02/06/17 05:20: White Blood Count 5.3, Red Blood Count 3.71L, Hemoglobin 10.8L, Hematocrit 32.8L , Mean Corpuscular Volume 88, Mean Corpuscular Hemoglobin 29.2, Mean Corpuscular Hemoglobin Concent 33.0, Red Cell Distribution Width 12.9, Platelet Count 234, Mean Platelet Volume 6.0L, Neutrophils (%) (Auto) 60.5, Lymphocytes ( %) (Auto) 23.6, Monocytes (%) (Auto) 11.3H, Eosinophils (%) (Auto) 4.4H, Basophils (%) (Auto) 0.3, Sodium Level 135, Potassium Level 4.3, Chloride Level 103, Carbon Dioxide Level 22, Anion Gap 10, Blood Urea Nitrogen 28H, Creatinine 1.1, Estimat Glomerular Filtration Rate > 60, Glucose Level 107H, Calcium Level 9.1 Height (Feet): 5 Height (Inches): 6.00 Weight (Pounds): 165 General Appearance: alert EENT: normal ENT inspection Neck: normal alignment Cardiovascular: normal rate Respiratory/Chest: normal breath sounds Neurologic: abnormal gait Skin: warm/dry Benjy Godwin Feb 06, 2017 21:52
[2017-02-07] VITALS (7 sets, daily range): BP systolic 98–149; BP diastolic 49–92
[2017-02-07] MEDS: metroNIDAZOLE 500mg tab ORAL SCH (06:34)
[2017-02-07] MEDS: NovoLOG Insulin Flexpen SUBQ SCH ×4 (06:34→20:41)
[2017-02-07 08:13] LABS: CALCIUM 9.2 mg/dL (8.6-10.2); CREATININE 1.3 mg/dL (0.7-1.2); GLOMERULAR FILTRATION RATE 54.9 mL/min (>60); POTASSIUM 4.6 mEQ/L (3.4-4.9)
[2017-02-07] MEDS: DULoxetine 30mg cap ORAL SCH (08:17)
[2017-02-07] MEDS: Cefepime HCl 2 GM in D5W 110 ML IV SCH ×2 (08:18→20:39)
[2017-02-07] MEDS: Heparin 5000 units/ml inj SUBQ SCH ×2 (08:23→20:42)
--- NOTE | 2017-02-07 09:15 | Infectious Diseases Prog Note ---
Assessment/Plan Assessment/Plan ASSESSMENT: The patient is a 66-year-old male with Leukocytosis, SP Left lower quadrant abdominal pain resolved Possible diverticulitis UTI : Ucx :PSA , pt has dysuria UCX repeat : low count strp and Mixed and PSA ( no clinical significance ) HIV test : neg Retroperineal LAP , SP Bx 02/02 History of cellulitis of left upper extremity. 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 History of EGD and colonoscopy : gastritis and hemorrhoids in July 2016 Mild hematuria. Acute renal insufficiency, improving. PLAN: cont pt on cefepime d# , upon DC will change AB Rx to Cipro complete the course 02/07 SP Flagyl d# Monitor CBC. Monitor BMP. GI evaluation for abdominal pain retroperitoneal biopsy :Path pending Subjective Allergies: Coded Allergies: No Known Allergies (Unverified , 02/13/13) Subjective no new complain Objective Vital Signs Last 24 Hour Vital Signs Date Time Temp Pulse Resp B/P Pulse Ox O2 Delivery O2 Flow Rate FiO2 02/07/17 08:47 Room Air 02/07/17 08:00 98.6 89 20 100/72 91 Room Air 02/07/17 04:00 96.4 83 20 98/66 95 Room Air 02/07/17 00:00 98.1 86 20 106/49 100 Room Air 02/06/17 23:55 86 18 Room Air 21 02/06/17 21:29 93 Room Air 02/06/17 20:00 97.7 80 20 113/47 91 Room Air 02/06/17 16:00 97.7 78 20 98/66 96 Room Air 02/06/17 14:02 97.7 02/06/17 13:28 80 130/72 02/06/17 12:00 97.7 87 20 91/67 94 Room Air Height (Feet): 5 Height (Inches): 6.00 Weight (Pounds): 165 HEENT: anicteric Respiratory/Chest: no respiratory distress Cardiovascular: regular rhythm Abdomen: no organomegaly Laboratory Tests Test 02/07/17 05:35 Sodium Level 133 mEQ/L (135-145) L Potassium Level 4.6 mEQ/L (3.4-4.9) Chloride Level 99 mEQ/L (98-107) Carbon Dioxide Level 20 mEQ/L (20-30) Anion Gap 14 (5-15) Blood Urea Nitrogen 34 mg/dL (7-23) H Creatinine 1.3 mg/dL (0.7-1.2) H Estimat Glomerular Filtration Rate 54.9 mL/min (>60) Glucose Level 101 mg/dL (74-106) Calcium Level 9.2 mg/dL (8.6-10.2) Current Medications Medications (Trade) Dose Ordered Sig/Gabby Route PRN Reason Start Time Stop Time Status Last Admin Dose Admin Acetaminophen (Tylenol) 650 mg Q4H PRN ORAL fever 01/31/17 23:15 03/02/17 23:14 Albuterol/ Ipratropium (DuoNeb 0.5-3(2.5)mg/3ml) 3 ml Q4H PRN HHN Shortness of Breath 02/04/17 15:30 02/09/17 15:29 Cefepime HCl/ Dextrose (Maxipime/D5W) 110 ml @ 220 mls/hr Q12HR@0900,2100 IV 02/03/17 21:00 02/10/17 20:59 02/07/17 08:18 Dextrose (Dextrose 50%) STAT PRN IV Hypoglycemia 02/01/17 17:30 03/03/17 17:29 Duloxetine HCl (Cymbalta) 30 mg DAILY ORAL 02/01/17 09:00 03/03/17 08:59 02/07/17 08:17 Gabapentin (Neurontin) 400 mg THREE TIMES A DAY ORAL 02/01/17 09:00 03/03/17 08:59 02/07/17 08:17 Heparin Sodium (Porcine) (Heparin 5000 units/ml) 5,000 units EVERY 12 HOURS SUBQ 02/01/17 09:00 03/03/17 08:59 02/07/17 08:23 Hydralazine HCl (Apresoline) 10 mg Q6H PRN ORAL sbp above 160 02/03/17 22:00 03/05/17 21:59 Hydromorphone HCl (Dilaudid) 1 mg Q4H PRN IVP Severe Pain (Pain Scale 7-10) 02/04/17 11:29 02/10/17 11:29 02/06/17 13:32 Hydromorphone HCl (Dilaudid) 2 mg Q3H PRN ORAL Moderate Pain (Pain Scale 4-6) 02/04/17 16:00 02/11/17 15:59 Insulin Aspart (NovoLOG) BEFORE MEALS AND HS SUBQ 02/01/17 21:00 03/03/17 20:59 02/07/17 06:34 Levetiracetam (Keppra) 500 mg EVERY 12 HOURS ORAL 02/01/17 09:00 03/03/17 08:59 02/07/17 08:17 Methadone HCl (Methadone HCl) 10 mg EVERY 12 HOURS ORAL 02/04/17 12:00 02/11/17 11:59 02/07/17 08:17 Metronidazole (Flagyl) 500 mg Q8HR ORAL 02/04/17 14:00 02/11/17 13:59 02/07/17 06:34 Ondansetron HCl (Zofran) 4 mg Q6H PRN IVP Nausea & Vomiting 01/31/17 23:15 03/02/17 23:14 02/06/17 16:01 Polyethylene Glycol (Miralax) 17 gm DAILYPRN PRN ORAL Constipation 01/31/17 23:15 03/02/17 23:14 02/04/17 05:08 Tamsulosin HCl 0.4 mg 0.4 mg QHS ORAL 02/02/17 21:00 03/04/17 20:59 02/06/17 21:17 Temazepam (Restoril) 15 mg HSPRN PRN ORAL Insomnia 02/06/17 21:00 02/13/17 20:59 Terazosin HCl (Hytrin) 5 mg DAILY ORAL 02/01/17 09:00 03/03/17 08:59 02/07/17 08:18 BARBARA ARAUJO M.D. Feb 07, 2017 09:15
--- NOTE | 2017-02-07 12:41 | GI Progress Note ---
Assessment/Plan Problems: (1) skilled nursing resident ICD Codes: Z59.3 - Problems related to living in residential institution SNOMED: 667433040 (2) Anemia ICD Codes: D64.9 - Anemia, unspecified SNOMED: 179358409 (3) Abdominal pain ICD Codes: R10.9 - Unspecified abdominal pain SNOMED: 00520615 Status: stable Status Narrative Discussed with Dr. Martin. Assessment/Plan s/p ERCP with stent removal for bile leak 2015 hx hepatitis panel >> negative s/p EGD and colon with findings of gastritis, hemorrhoids AP CT reviewed >> lymphadenopathy, enteritis, see full report. fu CT guided bx ADA diet prn blood transfusions zofran prn pain mgmt ppi GI procedures if needed fu labs Subjective Subjective abdominal pain resolved wants to ambulate Objective Last 24 Hour Vital Signs Date Time Temp Pulse Resp B/P Pulse Ox O2 Delivery O2 Flow Rate FiO2 02/07/17 12:00 98.4 82 19 136/76 92 Room Air 02/07/17 08:47 Room Air 02/07/17 08:00 98.6 89 20 100/72 91 Room Air 02/07/17 04:00 96.4 83 20 98/66 95 Room Air 02/07/17 00:00 98.1 86 20 106/49 100 Room Air 02/06/17 23:55 86 18 Room Air 21 02/06/17 21:29 93 Room Air 02/06/17 20:00 97.7 80 20 113/47 91 Room Air 02/06/17 16:00 97.7 78 20 98/66 96 Room Air 02/06/17 14:02 97.7 02/06/17 13:28 80 130/72 Intake and Output 02/06/17 02/07/17 19:00 07:00 Intake Total 460 ml 350 ml Output Total 700 ml 600 ml Balance -240 ml -250 ml Intake Oral 240 ml 240 ml IV Total 220 ml 110 ml Output Urine Total 700 ml 600 ml Laboratory Tests Test 02/07/17 05:35 Sodium Level 133 mEQ/L (135-145) L Potassium Level 4.6 mEQ/L (3.4-4.9) Chloride Level 99 mEQ/L (98-107) Carbon Dioxide Level 20 mEQ/L (20-30) Anion Gap 14 (5-15) Blood Urea Nitrogen 34 mg/dL (7-23) H Creatinine 1.3 mg/dL (0.7-1.2) H Estimat Glomerular Filtration Rate 54.9 mL/min (>60) Glucose Level 101 mg/dL (74-106) Calcium Level 9.2 mg/dL (8.6-10.2) Height (Feet): 5 Height (Inches): 6.00 Weight (Pounds): 165 General Appearance: no apparent distress, alert Cardiovascular: normal rate Respiratory/Chest: normal breath sounds, no respiratory distress Abdominal Exam: normal bowel sounds, non tender, soft Olga Green N.P. Feb 07, 2017 12:41
--- NOTE | 2017-02-07 18:05 | General Progress Note ---
Assessment/Plan Assessment/Plan ASSESSMENT AND PLAN: 1. Retroperitoneal lymphadenopathy. --> CT-guided biopsy concerning for lymphoma completed --> path report remains pending 2. Anemia secondary to chronic disease versus malignancy. 3. History of urinary tract infection, again, treated with antibiotics. 4. Abdominal pain, left sided. --> egd/colo shows gastritis and hemorrhoids --> pain has resolved 5. Seizure disorder. 6. Discussed with Interventional Radiology potentially to obtain biopsy on 02/02. 7. BPH --> Flomax Subjective Constitutional: Reports: no symptoms HEENT: Reports: no symptoms Cardiovascular: Reports: no symptoms Respiratory: Reports: no symptoms Gastrointestinal/Abdominal: Reports: no symptoms Genitourinary: Reports: no symptoms Neurologic/Psychiatric: Reports: no symptoms Endocrine: Reports: no symptoms Hematologic/Lymphatic: Reports: anemia Allergies: Coded Allergies: No Known Allergies (Unverified , 02/13/13) Subjective still waiting for report, no complaints of pain Objective Last 24 Hour Vital Signs Date Time Temp Pulse Resp B/P Pulse Ox O2 Delivery O2 Flow Rate FiO2 02/07/17 16:00 97.7 75 19 109/52 91 Room Air 02/07/17 12:00 98.4 82 19 136/76 92 Room Air 02/07/17 08:47 Room Air 02/07/17 08:00 98.6 89 20 100/72 91 Room Air 02/07/17 04:00 96.4 83 20 98/66 95 Room Air 02/07/17 00:00 98.1 86 20 106/49 100 Room Air 02/06/17 23:55 86 18 Room Air 21 02/06/17 21:29 93 Room Air 02/06/17 20:00 97.7 80 20 113/47 91 Room Air Intake and Output 02/06/17 02/07/17 19:00 07:00 Intake Total 460 ml 350 ml Output Total 700 ml 600 ml Balance -240 ml -250 ml Intake Oral 240 ml 240 ml IV Total 220 ml 110 ml Output Urine Total 700 ml 600 ml Laboratory Tests 02/07/17 05:30: Free Prostate Specific Antigen [Pending], Percent Free Prostate Specific Ag [ Pending], Prostate Specific Antigen Total [Pending] 02/07/17 05:35: Sodium Level 133L, Potassium Level 4.6, Chloride Level 99, Carbon Dioxide Level 20, Anion Gap 14, Blood Urea Nitrogen 34H, Creatinine 1.3H, Estimat Glomerular Filtration Rate 54.9, Glucose Level 101, Calcium Level 9.2 Height (Feet): 5 Height (Inches): 6.00 Weight (Pounds): 165 General Appearance: no apparent distress EENT: normal ENT inspection Neck: normal alignment Cardiovascular: regular rhythm Respiratory/Chest: chest wall non-tender 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
[2017-02-07] MEDS: HYDROmorphone 1mg/ml Carpuject IVP PRN (18:27)
--- NOTE | 2017-02-07 19:23 | Pulmonology Progress Note ---
Assessment/Plan Problems: (1) Abdominal pain (2) UTI (urinary tract infection) (3) Lymphadenopathy (4) History of CVA (cerebrovascular accident) (5) HTN (hypertension) (6) Seizure disorder Assessment/Plan biopsy showing neoplasm with urogenital origin f/u labs add flomax for BPH on methadone and dilaudid for pain control Subjective ROS Limited/Unobtainable: No Constitutional: Reports: no symptoms HEENT: Repors: no symptoms Respiratory: Reports: no symptoms Cardiovascular: Reports: no symptoms Gastrointestinal/Abdominal: Reports: no symptoms Allergies: Coded Allergies: No Known Allergies (Unverified , 02/13/13) Objective Last 24 Hour Vital Signs Date Time Temp Pulse Resp B/P Pulse Ox O2 Delivery O2 Flow Rate FiO2 02/07/17 16:00 97.7 75 19 109/52 91 Room Air 02/07/17 12:00 98.4 82 19 136/76 92 Room Air 02/07/17 08:47 Room Air 02/07/17 08:00 98.6 89 20 100/72 91 Room Air 02/07/17 04:00 96.4 83 20 98/66 95 Room Air 02/07/17 00:00 98.1 86 20 106/49 100 Room Air 02/06/17 23:55 86 18 Room Air 21 02/06/17 21:29 93 Room Air 02/06/17 20:00 97.7 80 20 113/47 91 Room Air Intake and Output 02/06/17 02/07/17 19:00 07:00 Intake Total 460 ml 350 ml Output Total 700 ml 600 ml Balance -240 ml -250 ml Intake Oral 240 ml 240 ml IV Total 220 ml 110 ml Output Urine Total 700 ml 600 ml General Appearance: WD/WN HEENT: normocephalic Respiratory/Chest: chest wall non-tender, lungs clear Cardiovascular: normal peripheral pulses, normal rate Abdomen: normal bowel sounds, soft, non tender Extremities: no cyanosis, no clubbing Laboratory Tests 02/07/17 05:30: Free Prostate Specific Antigen [Pending], Percent Free Prostate Specific Ag [ Pending], Prostate Specific Antigen Total [Pending] 02/07/17 05:35: Sodium Level 133L, Potassium Level 4.6, Chloride Level 99, Carbon Dioxide Level 20, Anion Gap 14, Blood Urea Nitrogen 34H, Creatinine 1.3H, Estimat Glomerular Filtration Rate 54.9, Glucose Level 101, Calcium Level 9.2 Current Medications Medications (Trade) Dose Ordered Sig/Gabby Route PRN Reason Start Time Stop Time Status Last Admin Dose Admin Acetaminophen (Tylenol) 650 mg Q4H PRN ORAL fever 01/31/17 23:15 03/02/17 23:14 Albuterol/ Ipratropium (DuoNeb 0.5-3(2.5)mg/3ml) 3 ml Q4H PRN HHN Shortness of Breath 02/04/17 15:30 02/09/17 15:29 Cefepime HCl/ Dextrose (Maxipime/D5W) 110 ml @ 220 mls/hr Q12HR@0900,2100 IV 02/03/17 21:00 02/10/17 20:59 02/07/17 08:18 Dextrose (Dextrose 50%) STAT PRN IV Hypoglycemia 02/01/17 17:30 03/03/17 17:29 Duloxetine HCl (Cymbalta) 30 mg DAILY ORAL 02/01/17 09:00 03/03/17 08:59 02/07/17 08:17 Gabapentin (Neurontin) 400 mg THREE TIMES A DAY ORAL 02/01/17 09:00 03/03/17 08:59 02/07/17 18:17 Heparin Sodium (Porcine) (Heparin 5000 units/ml) 5,000 units EVERY 12 HOURS SUBQ 02/01/17 09:00 03/03/17 08:59 02/07/17 08:23 Hydralazine HCl (Apresoline) 10 mg Q6H PRN ORAL sbp above 160 02/03/17 22:00 03/05/17 21:59 Hydromorphone HCl (Dilaudid) 1 mg Q4H PRN IVP Severe Pain (Pain Scale 7-10) 02/04/17 11:29 02/10/17 11:29 02/07/17 18:27 Hydromorphone HCl (Dilaudid) 2 mg Q3H PRN ORAL Moderate Pain (Pain Scale 4-6) 02/04/17 16:00 02/11/17 15:59 Insulin Aspart (NovoLOG) BEFORE MEALS AND HS SUBQ 02/01/17 21:00 03/03/17 20:59 02/07/17 18:18 Levetiracetam (Keppra) 500 mg EVERY 12 HOURS ORAL 02/01/17 09:00 03/03/17 08:59 02/07/17 08:17 Methadone HCl (Methadone HCl) 10 mg EVERY 12 HOURS ORAL 02/04/17 12:00 02/11/17 11:59 02/07/17 08:17 Ondansetron HCl (Zofran) 4 mg Q6H PRN IVP Nausea & Vomiting 01/31/17 23:15 03/02/17 23:14 02/06/17 16:01 Polyethylene Glycol (Miralax) 17 gm DAILYPRN PRN ORAL Constipation 01/31/17 23:15 03/02/17 23:14 02/04/17 05:08 Tamsulosin HCl 0.4 mg 0.4 mg QHS ORAL 02/02/17 21:00 03/04/17 20:59 02/06/17 21:17 Temazepam (Restoril) 15 mg HSPRN PRN ORAL Insomnia 02/06/17 21:00 02/13/17 20:59 Terazosin HCl (Hytrin) 5 mg DAILY ORAL 02/01/17 09:00 03/03/17 08:59 02/07/17 08:18 FORTINO POLO Feb 07, 2017 19:22
[2017-02-07] MEDS: Tamsulosin 0.4mg cap ORAL SCH (20:39)
[2017-02-08 04:00] VITALS: BP 102/69
[2017-02-08] MEDS: NovoLOG Insulin Flexpen SUBQ SCH ×2 (05:49→11:40)
[2017-02-08 08:16] LABS: BASOPHILS % (AUTO) 0.5 % (0.0-2.0); EOSINOPHILS % (AUTO) 4.5 % (0.0-3.0); MEAN CORPUSCULAR VOLUME 88 FL (80-99); MEAN PLATELET VOLUME 6.6 FL (6.5-10.1); MONOCYTES % (AUTO) 11.5 % (1.0-10.0); NEUTROPHILS % (AUTO) 60.6 % (45.0-75.0); PLATELET COUNT 225 K/UL (150-450); RED BLOOD COUNT 3.74 M/UL (4.70-6.10); WHITE BLOOD COUNT 5.6 K/UL (4.8-10.8)
[2017-02-08 08:17] VITALS: BP 110/73
[2017-02-08 08:17] LABS: ALANINE AMINOTRANSFERASE 12 U/L (3-41); ALBUMIN/GLOBULIN RATIO 1.2 (1.0-2.7); ANION GAP 10 (5-15); ASPARTATE AMINO TRANSFERASE 28 U/L (5-40); CALCIUM 9.5 mg/dL (8.6-10.2); CARBON DIOXIDE 24 mEQ/L (20-30); CHLORIDE 98 mEQ/L (98-107); GLOMERULAR FILTRATION RATE > 60 mL/min (>60); HEMOLYSIS 2; POTASSIUM 4.4 mEQ/L (3.4-4.9); SODIUM 132 mEQ/L (135-145); TOTAL PROTEIN 6.6 g/dL (6.6-8.7)
[2017-02-08] MEDS: Cefepime HCl 2 GM in D5W 110 ML IV SCH (08:32)
[2017-02-08] MEDS: DULoxetine 30mg cap ORAL SCH (08:35)
[2017-02-08] MEDS: Heparin 5000 units/ml inj SUBQ SCH (08:39)
--- NOTE | 2017-02-08 09:28 | GI Progress Note ---
Assessment/Plan Problems: (1) retirement resident ICD Codes: Z59.3 - Problems related to living in residential institution SNOMED: 159939871 (2) Anemia ICD Codes: D64.9 - Anemia, unspecified SNOMED: 077886873 (3) Abdominal pain ICD Codes: R10.9 - Unspecified abdominal pain SNOMED: [id number] Status: stable Status Narrative Discussed with Dr. aMrtin. Assessment/Plan s/p ERCP with stent removal for bile leak 2015 hx hepatitis panel >> negative s/p EGD and colon with findings of gastritis, hemorrhoids AP CT reviewed >> lymphadenopathy, enteritis, see full report. fu CT guided bx ADA diet prn blood transfusions zofran prn pain mgmt ppi GI procedures if needed fu labs Subjective Subjective abdominal pain better wants to ambulate Objective Last 24 Hour Vital Signs Date Time Temp Pulse Resp B/P Pulse Ox O2 Delivery O2 Flow Rate FiO2 02/08/17 08:17 97.0 78 20 110/73 96 Room Air 02/08/17 07:48 80 18 Room Air 21 02/08/17 04:00 97.7 79 18 102/69 90 Room Air 02/07/17 23:41 97.9 79 18 126/84 97 Room Air 02/07/17 20:53 82 18 Room Air 02/07/17 20:00 97.3 82 18 149/92 96 Room Air 02/07/17 16:00 97.7 75 19 109/52 91 Room Air 02/07/17 12:00 98.4 82 19 136/76 92 Room Air Intake and Output 02/07/17 02/08/17 19:00 07:00 Intake Total 360 ml 490 ml Output Total 650 ml Balance 360 ml -160 ml Intake Oral 360 ml 380 ml IV Total 110 ml Output Urine Total 650 ml Laboratory Tests Test 02/08/17 07:20 White Blood Count 5.6 K/UL (4.8-10.8) Red Blood Count 3.74 M/UL (4.70-6.10) L Hemoglobin 10.9 G/DL (14.2-18.0) L Hematocrit 32.9 % (42.0-52.0) L Mean Corpuscular Volume 88 FL (80-99) Mean Corpuscular Hemoglobin 29.0 PG (27.0-31.0) Mean Corpuscular Hemoglobin Concent 33.0 G/DL (32.0-36.0) Red Cell Distribution Width 13.0 % (11.6-14.8) Platelet Count 225 K/UL (150-450) Mean Platelet Volume 6.6 FL (6.5-10.1) Neutrophils (%) (Auto) 60.6 % (45.0-75.0) Lymphocytes (%) (Auto) 23.0 % (20.0-45.0) Monocytes (%) (Auto) 11.5 % (1.0-10.0) H Eosinophils (%) (Auto) 4.5 % (0.0-3.0) H Basophils (%) (Auto) 0.5 % (0.0-2.0) Sodium Level 132 mEQ/L (135-145) L Potassium Level 4.4 mEQ/L (3.4-4.9) Chloride Level 98 mEQ/L (98-107) Carbon Dioxide Level 24 mEQ/L (20-30) Anion Gap 10 (5-15) Blood Urea Nitrogen 28 mg/dL (7-23) H Creatinine 1.0 mg/dL (0.7-1.2) Estimat Glomerular Filtration Rate > 60 mL/min (>60) Glucose Level 116 mg/dL (74-106) H Calcium Level 9.5 mg/dL (8.6-10.2) Total Bilirubin 0.3 mg/dL (0.0-1.2) Aspartate Amino Transf (AST/SGOT) 28 U/L (5-40) Alanine Aminotransferase (ALT/SGPT) 12 U/L (3-41) Alkaline Phosphatase 82 U/L (40-129) Total Protein 6.6 g/dL (6.6-8.7) Albumin 3.7 g/dL (3.5-5.2) Globulin 2.9 g/dL Albumin/Globulin Ratio 1.2 (1.0-2.7) Height (Feet): 5 Height (Inches): 6.00 Weight (Pounds): 165 General Appearance: no apparent distress, alert Cardiovascular: normal rate Respiratory/Chest: normal breath sounds, no respiratory distress Abdominal Exam: normal bowel sounds, non tender, soft Extremities: normal range of motion Olga Green N.PTima Feb 08, 2017 09:28
[2017-02-08 10:40] LABS: PSA FREE 0.03 ng/mL; PSA TOTAL 0.2 ng/mL (0.0-4.0)
--- NOTE | 2017-02-08 10:50 | Urology Progress Note ---
Assessment/Plan Status: stable Assessment/Plan New concern for possible urothelial source on biopsy specimen. Will have urine cytology sent, but in setting of active UTI with pseudomonas can not proceed with cysto and biopsies till infection treated. CT is negative for filling defects in upper tracts. will need to finish workup as outpatient. 1. urine cytology 2. continue brown till UTI treated 3. f/u as outpatient for cystoscopy and voiding trial 4. f/u final path from retroperitoneal biopsy. Subjective Date patient seen: Feb 08, 2017 Time patient seen: 10:47 ROS Limited/Unobtainable: No Constitutional: Denies: chills, diaphoresis, fever, malaise, no symptoms, other , weakness HEENT: Denies: blurred vision, double vision, ear discharge, ear pain, eye pain , mouth pain, mouth swelling, no symptoms, nose congestion, nose pain, other, tearing, throat pain, throat swelling Cardiovascular: Denies: chest pain, edema, irregular heart rate, lightheadedness, no symptoms, other, palpitations, syncope Respiratory: Denies: SOB at rest, SOB with excertion, cough, no symptoms, orthopnea, other, shortness of breath, sputum, stridor, wheezing Gastrointestinal/Abdominal: Denies: abdomen distended, abdominal pain, black stools, blood in stool, constipated, diarrhea, difficulty swallowing, nausea, no symptoms, other, poor appetite, poor fluid intake, rectal bleeding, tarry stools, vomiting Genitourinary: Denies: burning, discharge, flank pain, frequency, hematuria, incontinence, no symptoms, other, pain, urgency Neurologic/Psychiatric: Denies: anxiety, depressed, emotional problems, headache, no symptoms, numbness, other, paresthesia, pre-existing deficit, seizure, tingling, tremors, weakness Endocrine: Denies: excessive sweating, flushing, increased hunger, increased thirst, increased urine, intolerance to cold, intolerance to heat, no symptoms, other, unexplained weight gain, unexplained weight loss Hematologic/Lymphatic: Denies: anemia, easy bleeding, easy bruising, no symptoms, other Allergies: Coded Allergies: No Known Allergies (Unverified , 02/13/13) Subjective abd pain better. Objective Last 24 Hour Vital Signs Date Time Temp Pulse Resp B/P Pulse Ox O2 Delivery O2 Flow Rate FiO2 02/08/17 08:17 97.0 78 20 110/73 96 Room Air 02/08/17 07:48 80 18 Room Air 21 02/08/17 04:00 97.7 79 18 102/69 90 Room Air 02/07/17 23:41 97.9 79 18 126/84 97 Room Air 02/07/17 20:53 82 18 Room Air 02/07/17 20:00 97.3 82 18 149/92 96 Room Air 02/07/17 16:00 97.7 75 19 109/52 91 Room Air 02/07/17 12:00 98.4 82 19 136/76 92 Room Air Intake and Output 02/07/17 02/08/17 19:00 07:00 Intake Total 360 ml 490 ml Output Total 650 ml Balance 360 ml -160 ml Intake Oral 360 ml 380 ml IV Total 110 ml Output Urine Total 650 ml Laboratory Tests 02/08/17 07:20: White Blood Count 5.6, Red Blood Count 3.74L, Hemoglobin 10.9L, Hematocrit 32.9L , Mean Corpuscular Volume 88, Mean Corpuscular Hemoglobin 29.0, Mean Corpuscular Hemoglobin Concent 33.0, Red Cell Distribution Width 13.0, Platelet Count 225, Mean Platelet Volume 6.6, Neutrophils (%) (Auto) 60.6, Lymphocytes (% ) (Auto) 23.0, Monocytes (%) (Auto) 11.5H, Eosinophils (%) (Auto) 4.5H, Basophils (%) (Auto) 0.5, Sodium Level 132L, Potassium Level 4.4, Chloride Level 98, Carbon Dioxide Level 24, Anion Gap 10, Blood Urea Nitrogen 28H, Creatinine 1.0, Estimat Glomerular Filtration Rate > 60, Glucose Level 116H, Calcium Level 9.5, Total Bilirubin 0.3, Aspartate Amino Transf (AST/SGOT) 28, Alanine Aminotransferase (ALT/SGPT) 12, Alkaline Phosphatase 82, Total Protein 6.6, Albumin 3.7, Globulin 2.9, Albumin/Globulin Ratio 1.2 Height (Feet): 5 Height (Inches): 6.00 Weight (Pounds): 165 General Appearance: no apparent distress Abdomen: soft Genitourinary/Rectal: other - brown in place El Mccord M.D. Feb 08, 2017 10:49
[2017-02-08] MEDS: HYDROmorphone 1mg/ml Carpuject IVP PRN (11:47)
[2017-02-08 11:56] VITALS: BP 115/72
--- NOTE | 2017-02-08 13:01 | Infectious Diseases Prog Note ---
Assessment/Plan Assessment/Plan A; UTI Diverticulitis Retroperitoneal adenopathy Anemia Uroepithelial tumor P; continue cefepime d# 8 / 14 , upon DC will change AB Rx to Cipro complete the course . Subjective ROS Limited/Unobtainable: No Constitutional: Reports: anorexia Respiratory: Reports: no symptoms Cardiovascular: Reports: no symptoms Gastrointestinal/Abdominal: Reports: other - pain Genitourinary: Reports: no symptoms Allergies: Coded Allergies: No Known Allergies (Unverified , 02/13/13) Objective Vital Signs Last 24 Hour Vital Signs Date Time Temp Pulse Resp B/P Pulse Ox O2 Delivery O2 Flow Rate FiO2 02/08/17 12:17 97.0 02/08/17 11:56 97.0 73 19 115/72 96 Room Air 02/08/17 08:17 97.0 78 20 110/73 96 Room Air 02/08/17 07:48 80 18 Room Air 21 02/08/17 04:00 97.7 79 18 102/69 90 Room Air 02/07/17 23:41 97.9 79 18 126/84 97 Room Air 02/07/17 20:53 82 18 Room Air 02/07/17 20:00 97.3 82 18 149/92 96 Room Air 02/07/17 16:00 97.7 75 19 109/52 91 Room Air Height (Feet): 5 Height (Inches): 6.00 Weight (Pounds): 165 General Appearance: no acute distress HEENT: mucous membranes moist Respiratory/Chest: lungs clear Cardiovascular: normal rate Abdomen: soft, non tender Genitourinary: other - Potter catheter Extremities: no edema Neurologic/Psychiatric: alert, responsive Laboratory Tests Test 02/08/17 07:20 White Blood Count 5.6 K/UL (4.8-10.8) Red Blood Count 3.74 M/UL (4.70-6.10) L Hemoglobin 10.9 G/DL (14.2-18.0) L Hematocrit 32.9 % (42.0-52.0) L Mean Corpuscular Volume 88 FL (80-99) Mean Corpuscular Hemoglobin 29.0 PG (27.0-31.0) Mean Corpuscular Hemoglobin Concent 33.0 G/DL (32.0-36.0) Red Cell Distribution Width 13.0 % (11.6-14.8) Platelet Count 225 K/UL (150-450) Mean Platelet Volume 6.6 FL (6.5-10.1) Neutrophils (%) (Auto) 60.6 % (45.0-75.0) Lymphocytes (%) (Auto) 23.0 % (20.0-45.0) Monocytes (%) (Auto) 11.5 % (1.0-10.0) H Eosinophils (%) (Auto) 4.5 % (0.0-3.0) H Basophils (%) (Auto) 0.5 % (0.0-2.0) Sodium Level 132 mEQ/L (135-145) L Potassium Level 4.4 mEQ/L (3.4-4.9) Chloride Level 98 mEQ/L (98-107) Carbon Dioxide Level 24 mEQ/L (20-30) Anion Gap 10 (5-15) Blood Urea Nitrogen 28 mg/dL (7-23) H Creatinine 1.0 mg/dL (0.7-1.2) Estimat Glomerular Filtration Rate > 60 mL/min (>60) Glucose Level 116 mg/dL (74-106) H Calcium Level 9.5 mg/dL (8.6-10.2) Total Bilirubin 0.3 mg/dL (0.0-1.2) Aspartate Amino Transf (AST/SGOT) 28 U/L (5-40) Alanine Aminotransferase (ALT/SGPT) 12 U/L (3-41) Alkaline Phosphatase 82 U/L (40-129) Total Protein 6.6 g/dL (6.6-8.7) Albumin 3.7 g/dL (3.5-5.2) Globulin 2.9 g/dL Albumin/Globulin Ratio 1.2 (1.0-2.7) Current Medications Medications (Trade) Dose Ordered Sig/Gabby Route PRN Reason Start Time Stop Time Status Last Admin Dose Admin Acetaminophen (Tylenol) 650 mg Q4H PRN ORAL fever 01/31/17 23:15 03/02/17 23:14 Albuterol/ Ipratropium (DuoNeb 0.5-3(2.5)mg/3ml) 3 ml Q4H PRN HHN Shortness of Breath 02/04/17 15:30 02/09/17 15:29 Cefepime HCl/ Dextrose (Maxipime/D5W) 110 ml @ 220 mls/hr Q12HR@0900,2100 IV 02/03/17 21:00 02/10/17 20:59 02/08/17 08:32 Dextrose (Dextrose 50%) STAT PRN IV Hypoglycemia 02/01/17 17:30 03/03/17 17:29 Duloxetine HCl (Cymbalta) 30 mg DAILY ORAL 02/01/17 09:00 03/03/17 08:59 02/08/17 08:35 Gabapentin (Neurontin) 400 mg THREE TIMES A DAY ORAL 02/01/17 09:00 03/03/17 08:59 02/08/17 12:38 Heparin Sodium (Porcine) (Heparin 5000 units/ml) 5,000 units EVERY 12 HOURS SUBQ 02/01/17 09:00 03/03/17 08:59 02/08/17 08:39 Hydralazine HCl (Apresoline) 10 mg Q6H PRN ORAL sbp above 160 02/03/17 22:00 03/05/17 21:59 Hydromorphone HCl (Dilaudid) 1 mg Q4H PRN IVP Severe Pain (Pain Scale 7-10) 02/04/17 11:29 02/10/17 11:29 02/08/17 11:47 Hydromorphone HCl (Dilaudid) 2 mg Q3H PRN ORAL Moderate Pain (Pain Scale 4-6) 02/04/17 16:00 02/11/17 15:59 Insulin Aspart (NovoLOG) BEFORE MEALS AND HS SUBQ 02/01/17 21:00 03/03/17 20:59 02/08/17 11:40 Levetiracetam (Keppra) 500 mg EVERY 12 HOURS ORAL 02/01/17 09:00 03/03/17 08:59 02/08/17 08:35 Methadone HCl (Methadone HCl) 10 mg EVERY 12 HOURS ORAL 02/04/17 12:00 02/11/17 11:59 02/08/17 08:35 Ondansetron HCl (Zofran) 4 mg Q6H PRN IVP Nausea & Vomiting 01/31/17 23:15 03/02/17 23:14 02/06/17 16:01 Polyethylene Glycol (Miralax) 17 gm DAILYPRN PRN ORAL Constipation 01/31/17 23:15 03/02/17 23:14 02/04/17 05:08 Tamsulosin HCl 0.4 mg 0.4 mg QHS ORAL 02/02/17 21:00 03/04/17 20:59 02/07/17 20:39 Temazepam (Restoril) 15 mg HSPRN PRN ORAL Insomnia 02/06/17 21:00 02/13/17 20:59 Terazosin HCl (Hytrin) 5 mg DAILY ORAL 02/01/17 09:00 03/03/17 08:59 02/08/17 08:36 ARCADIO MANRIQUEZ Feb 08, 2017 13:01
[2017-02-08] MEDS ORDERED: METHADONE HCL10 MG ORAL (13:17)
[2017-02-08] MEDS ORDERED: DILAUDID2 MG ORAL (13:17)
[2017-02-08] MEDS ORDERED: CIPRO500 MG/51 PO (13:32)
[2017-02-08 15:46] VITALS: BP 120/89
--- NOTE | 2017-02-08 17:05 | General Progress Note ---
Assessment/Plan Assessment/Plan ASSESSMENT AND PLAN: 1. Retroperitoneal lymphadenopathy. --> CT-guided biopsy concerning for lymphoma completed --> path report remains pending, will follow up if needed 2. Anemia secondary to chronic disease versus malignancy. 3. History of urinary tract infection, again, treated with antibiotics. 4. Abdominal pain, left sided. --> egd/colo shows gastritis and hemorrhoids --> pain has resolved 5. Seizure disorder. 6. Discussed with Interventional Radiology potentially to obtain biopsy on 02/02. 7. BPH --> Flomax Subjective Constitutional: Reports: no symptoms HEENT: Reports: no symptoms Cardiovascular: Reports: no symptoms Respiratory: Reports: no symptoms Gastrointestinal/Abdominal: Reports: no symptoms Genitourinary: Reports: no symptoms Neurologic/Psychiatric: Reports: no symptoms Endocrine: Reports: no symptoms Hematologic/Lymphatic: Reports: no symptoms Allergies: Coded Allergies: No Known Allergies (Unverified , 02/13/13) Subjective pt is clear for dc Objective Last 24 Hour Vital Signs Date Time Temp Pulse Resp B/P Pulse Ox O2 Delivery O2 Flow Rate FiO2 02/08/17 15:46 98.1 83 19 120/89 96 Room Air 02/08/17 12:17 97.0 02/08/17 11:56 97.0 73 19 115/72 96 Room Air 02/08/17 08:17 97.0 78 20 110/73 96 Room Air 02/08/17 07:48 80 18 Room Air 21 02/08/17 04:00 97.7 79 18 102/69 90 Room Air 02/07/17 23:41 97.9 79 18 126/84 97 Room Air 02/07/17 20:53 82 18 Room Air 02/07/17 20:00 97.3 82 18 149/92 96 Room Air Intake and Output 02/07/17 02/08/17 19:00 07:00 Intake Total 360 ml 490 ml Output Total 650 ml Balance 360 ml -160 ml Intake Oral 360 ml 380 ml IV Total 110 ml Output Urine Total 650 ml Laboratory Tests 02/08/17 07:20: White Blood Count 5.6, Red Blood Count 3.74L, Hemoglobin 10.9L, Hematocrit 32.9L , Mean Corpuscular Volume 88, Mean Corpuscular Hemoglobin 29.0, Mean Corpuscular Hemoglobin Concent 33.0, Red Cell Distribution Width 13.0, Platelet Count 225, Mean Platelet Volume 6.6, Neutrophils (%) (Auto) 60.6, Lymphocytes (% ) (Auto) 23.0, Monocytes (%) (Auto) 11.5H, Eosinophils (%) (Auto) 4.5H, Basophils (%) (Auto) 0.5, Sodium Level 132L, Potassium Level 4.4, Chloride Level 98, Carbon Dioxide Level 24, Anion Gap 10, Blood Urea Nitrogen 28H, Creatinine 1.0, Estimat Glomerular Filtration Rate > 60, Glucose Level 116H, Calcium Level 9.5, Total Bilirubin 0.3, Aspartate Amino Transf (AST/SGOT) 28, Alanine Aminotransferase (ALT/SGPT) 12, Alkaline Phosphatase 82, Total Protein 6.6, Albumin 3.7, Globulin 2.9, Albumin/Globulin Ratio 1.2 Height (Feet): 5 Height (Inches): 6.00 Weight (Pounds): 165 General Appearance: lethargic EENT: normal ENT inspection Neck: normal alignment Cardiovascular: normal peripheral pulses Respiratory/Chest: chest wall non-tender Extremities: normal range of motion Edema: mild edema Skin: warm/dry Benjy Godwin Feb 08, 2017 17:05
--- NOTE | 2017-02-08 22:52 | Pulmonology Progress Note ---
Assessment/Plan Problems: (1) Abdominal pain (2) UTI (urinary tract infection) (3) Lymphadenopathy (4) History of CVA (cerebrovascular accident) (5) HTN (hypertension) (6) Seizure disorder Assessment/Plan biopsy showing neoplasm with urogenital origin f/u labs add flomax for BPH on methadone and dilaudid for pain control [facility] Subjective ROS Limited/Unobtainable: No Interval Events: pain is much better controlled Allergies: Coded Allergies: No Known Allergies (Unverified , 02/13/13) Objective Last 24 Hour Vital Signs Date Time Temp Pulse Resp B/P Pulse Ox O2 Delivery O2 Flow Rate FiO2 02/08/17 15:46 98.1 83 19 120/89 96 Room Air 02/08/17 12:17 97.0 02/08/17 11:56 97.0 73 19 115/72 96 Room Air 02/08/17 08:17 97.0 78 20 110/73 96 Room Air 02/08/17 07:48 80 18 Room Air 21 02/08/17 04:00 97.7 79 18 102/69 90 Room Air 02/07/17 23:41 97.9 79 18 126/84 97 Room Air Intake and Output 02/07/17 02/08/17 19:00 07:00 Intake Total 360 ml 490 ml Output Total 650 ml Balance 360 ml -160 ml Intake Oral 360 ml 380 ml IV Total 110 ml Output Urine Total 650 ml General Appearance: WD/WN HEENT: normocephalic, atraumatic Respiratory/Chest: chest wall non-tender, lungs clear Cardiovascular: normal peripheral pulses, normal rate Abdomen: normal bowel sounds Genitourinary: normal external genitalia Extremities: no cyanosis Laboratory Tests 02/08/17 07:20: White Blood Count 5.6, Red Blood Count 3.74L, Hemoglobin 10.9L, Hematocrit 32.9L , Mean Corpuscular Volume 88, Mean Corpuscular Hemoglobin 29.0, Mean Corpuscular Hemoglobin Concent 33.0, Red Cell Distribution Width 13.0, Platelet Count 225, Mean Platelet Volume 6.6, Neutrophils (%) (Auto) 60.6, Lymphocytes (% ) (Auto) 23.0, Monocytes (%) (Auto) 11.5H, Eosinophils (%) (Auto) 4.5H, Basophils (%) (Auto) 0.5, Sodium Level 132L, Potassium Level 4.4, Chloride Level 98, Carbon Dioxide Level 24, Anion Gap 10, Blood Urea Nitrogen 28H, Creatinine 1.0, Estimat Glomerular Filtration Rate > 60, Glucose Level 116H, Calcium Level 9.5, Total Bilirubin 0.3, Aspartate Amino Transf (AST/SGOT) 28, Alanine Aminotransferase (ALT/SGPT) 12, Alkaline Phosphatase 82, Total Protein 6.6, Albumin 3.7, Globulin 2.9, Albumin/Globulin Ratio 1.2 FORTINO POLO Feb 08, 2017 22:51
--- NOTE | 2017-02-10 09:22 | Discharge Summary ---
Discharge Summary Hospital Course Date of Admission Jan 31, 2017 at 22:06 Date of Discharge Feb 08, 2017 at 15:05 Admitting Diagnosis Abdominal pain HPI Michael Aleman is a 66 year old male who was admitted on Jan 31, 2017 at 22:06 for Abdominal Pain Hospital Course [id number] Discharge Discharge Disposition Patient was discharged to SNF/Subacute Facility(03) Discharge Diagnoses: Janet Alexander NP Feb 10, 2017 09:22
--- NOTE | 2017-02-10 12:16 | Discharge Summary 2 SIG ---
DATE OF ADMISSION: 01/31/2017 DATE OF DISCHARGE: 02/08/2017 CONSULTANTS: 1. Benjy Godwin M.D. 2. Vignesh Martin M.D. 3. Sixto Eid M.D. 4. El Mccord M.D. BRIEF HOSPITAL COURSE: The patient is a 66-year-old male with history of CVA, hypertension, diabetes, detention resident, who presented to the ED complaining of increased left-sided abdominal pain, which was constant and had intermittent constipation. On evaluation at ED, laboratories showed a slight leukocytosis. Urine WBC is 5-10 and urine RBC 10 to 15 with 3+ leukocyte esterase. BUN was 28 and creatinine was 1.8. He had a CT scan of the abdomen and pelvis that showed multiple lymphadenopathy on the retroperitoneum with some wall thickening on the small bowel loops, possibly enteritis. He was admitted to medical floor for urinary tract infection and abdominal pain with possible enteritis and for evaluation of lymphadenopathy. He was pancultured and was started on cefepime and Flagyl. He was given IV hydration. Renal ultrasound done showed normal size contour and echogenicity of both kidneys. No hydronephrosis. On 02/02/2017, he underwent CT-guided biopsy of retroperitoneum. He was given symptomatic treatment for abdominal pain and was given proton pump inhibitors and Zofran as needed. Urine culture showed growth of Enterococcus faecalis and Pseudomonas aeruginosa. Acute renal failure resolved. Renal failure likely secondary to dehydration. Tumor markers were checked. The patient had normal CA-19-9, CA-125, CA-27-27, and CA-15-3. CEA was elevated to 5.4. 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 Urine cytology was sent, however, due to active UTI with Pseudomonas, unable to proceed with cystoscopy and biopsy until infection was fully treated. He had episodes of urinary retention and was advised continue antibiotics and will eventually need cystoscopy and voiding trial as an outpatient. He was given Flomax and was given methadone and Dilaudid for pain control. He was eventually discharged back to [facility] for hospice evaluation. FINAL DIAGNOSES: 1. 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 2. Acute renal failure, resolved. 3. Urinary retention. 4. Benign prostatic hypertrophy. 5. Urinary tract infection with Pseudomonas. 6. Anemia, secondary to chronic disease. 7. Anemia, secondary to malignancy. 8. Seizure disorder. 9. Status post CT-guided biopsy of retroperitoneal lymph node. 10. Hypomagnesemia. 11. Dehydration. 12. Elevated CEA. DISPOSITION: The patient was discharged back to detention for possible hospice evaluation. Cale Hopkins M.D. I have been assigned to dictate discharge summary on this account and I was not involved in the patient's management. Janet Alexander N.P. DR: ELSY JOB#: [id number] CC:
== END 2017-02-08 15:05 | DRG 694 ==
LOC: EDBD 17:16 → EDUNIT# 17:16 → EMR 20:44 → 4W 22:06 → EDBEDREQ 22:50
PROC: 0WBH3ZX Excision of Retroperitoneum, Percutaneous Approach, Diagnostic (ICD-10-PCS; principal; 2017-02-02)
DX: C76.8 Malignant neoplasm of other specified ill-defined sites (principal); N17.9 Acute kidney failure, unspecified; N39.0 Urinary tract infection, site not specified; E83.42 Hypomagnesemia; K57.92 Diverticulitis of intestine, part unspecified, without perforation or abscess without bleeding; C79.9 Secondary malignant neoplasm of unspecified site; R10.9 Unspecified abdominal pain; Z86.73 Personal history of transient ischemic attack (TIA), and cerebral infarction without residual deficits; E11.9 Type 2 diabetes mellitus without complications; I10 Essential (primary) hypertension; Z79.4 Long term (current) use of insulin; D63.8 Anemia in other chronic diseases classified elsewhere; G40.909 Epilepsy, unspecified, not intractable, without status epilepticus; B95.2 Enterococcus as the cause of diseases classified elsewhere; B96.5 Pseudomonas (aeruginosa) (mallei) (pseudomallei) as the cause of diseases classified elsewhere; E86.0 Dehydration; R97.0 Elevated carcinoembryonic antigen [CEA]; K29.70 Gastritis, unspecified, without bleeding; K64.8 Other hemorrhoids; E78.5 Hyperlipidemia, unspecified; H40.9 Unspecified glaucoma; N40.1 Benign prostatic hyperplasia with lower urinary tract symptoms; R33.8 Other retention of urine; R59.0 Localized enlarged lymph nodes
CPT/HCPCS: 36415; 74176; 76775; 77012; 80048; 80053; 80299; 81001; 81003; 82270; 82378; 82436; 82550; 82607; 82746; 82962; 83036; 83540; 83550; 83615; 83690; 83735; 83930; 83935; 84100; 84133; 84153; 84154; 84300; 84439; 84484; 84550; 85007; 85025; 85044; 85060; 85610; 85651; 85730; 86300; 86301; 86304; 86703; 87081; 87086; 87181; 89050; 94664; J1815; J2405